=== PATIENT | male | born 1965 | race Hispanic/Latino ===

== ENCOUNTER 2018-11-04 11:40 | Inpatient (IN) | payer OTHER ==
[~2018-11-04] VITALS: Ht 172.7 cm; Wt 108.9 kg
[~2018-11-04 11:40] MED LIST: NORCO 10-325 T1 EACH
[2018-11-04] MEDS ORDERED: SODIUM CHLORIDE 0.9% 1000ML 1,000 ML IV STA (11:56)
[2018-11-04] MEDS ORDERED: HYDROCODONE/APAP 10MG-325MG TAB PO ONE (12:00)
[2018-11-04 12:53] LABS: BASOPHILS % 0.2 % (0.0-1.0); EOSINOPHILS % 0.2 % (0.0-6.0); HEMATOCRIT 21.4 % (38.2-49.6); LYMPHOCYTES % 7.8 % (18.0-39.1); MEAN CORPUSCULAR HEMOGLOBIN 29.2 pg (28-32); MEAN CORPUSCULAR HGB CONC 31.8 g/dL (31-35); MEAN CORPUSCULAR VOLUME 91.8 fL (81-99); MONOCYTES # (AUTO) 0.7 (0.2-0.8); MONOCYTES % 5.5 % (4.4-11.3); NEUTROPHILS # (AUTO) 10.3 (2.1-6.9); NEUTROPHILS % 85.1 % (38.7-80.0); PLATELET COUNT 83 x10e3/uL (140-360); RED BLOOD COUNT 2.33 x10e6/uL (4.3-5.7); RED CELL DISTRIBUTION WIDTH 19.5 % (11.7-14.4)
[2018-11-04 13:02] LABS: HEMOGLOBIN 6.8 g/dL (14.0-18.0)
[2018-11-04 13:07] LABS: ALANINE AMINOTRANSFERASE 23 IU/L (0-55); ALBUMIN 2.3 g/dL (3.5-5.0); ALBUMIN/GLOBULIN RATIO 0.4 (0.8-2.0); ALKALINE PHOSPHATASE 75 IU/L (40-150); ANION GAP 9.7 mmol/L (8-16); BLOOD UREA NITROGEN 13 mg/dL (7-26); BUN/CREATININE RATIO 16 (6-25); CARBON DIOXIDE 23 mmol/L (22-29); CHLORIDE 93 mmol/L (98-107); CREATININE, SERUM 0.83 mg/dL (0.72-1.25); EST GLOMERULAR FILTRATION RATE > 60 ML/MIN (60-); GLUCOSE 120 mg/dL (74-118); POTASSIUM 3.7 mmol/L (3.5-5.1); SODIUM 122 mmol/L (136-145)
--- NOTE | 2018-11-04 13:15 | Diagnostic Imaging Report ---
Exam: Left wrist radiographs-3 views History: Fall on outstretched hand, wrist pain. Comparison: None. Findings: No evidence of acute fracture, malalignment, or soft tissue abnormality. There are mild degenerative changes of the first carpometacarpal joint and radiocarpal joints. Impression: No acute radiographic abnormality. Signed by: Dr. Dustin Frazier MD on 11/04/2018 1:11 PM
--- NOTE | 2018-11-04 13:19 | Diagnostic Imaging Report ---
EXAMINATION: CHEST 2 VIEWS INDICATION: Status post fall. COMPARISON: None FINDINGS: TUBES and LINES: None. LUNGS: Lungs are well inflated. There is no evidence of pneumonia or pulmonary edema. Nodular opacities overlying the bilateral lower lung zones likely represent nipples. PLEURA: No pleural effusion or pneumothorax. HEART AND MEDIASTINUM: The cardiomediastinal silhouette is unremarkable. BONES AND SOFT TISSUES: No acute osseous abnormality. There are likely old fracture deformities of the right anterior second, third, and fourth ribs. UPPER ABDOMEN: No free air under the diaphragm. IMPRESSION: Likely old fracture deformities of the right anterior second through fourth ribs. No evidence of acute displaced fracture or pneumothorax. Signed by: Dr. Dustin Frazier MD on 11/04/2018 1:15 PM
[2018-11-04] MEDS ORDERED: HYDROMORPHONE 2MG/ML 2 MG/ML ML IV NR (14:30)
[2018-11-04] MEDS ORDERED: PANTOPRAZOLE 40 MG 10ML VIAL IV NR ×2 (14:32→15:48)
[2018-11-04] MEDS ORDERED: ONDANSETRON HCL INJ 2MG/ML 2ML 2 MG/ML VIAL IV NR (14:32)
[2018-11-04 14:44] LABS: BAND NEUTROPHILS % (MANUAL) 14 %; EOSINOPHILS % (MANUAL) 1 % (0-7); LYMPHOCYTES % (MANUAL) 5 % (19-48); MONOCYTES % (MANUAL) 4 % (3.4-9.0); NEUTROPHILS % (MANUAL) 76 % (40-74)
[2018-11-04 14:45] LABS: PLATELET ESTIMATE MODERATELY DECREASED; PLATELET MORPHOLOGY COMMENT FEW LARGE
[2018-11-04] MEDS ORDERED: SODIUM CHLORIDE 0.9% 1000ML 1,000 ML IV NR (14:45)
[2018-11-04 15:17] LABS: INR 2.21; PROTHROMBIN TIME 25.2 seconds (11.9-14.5)
[2018-11-04 15:18] LABS: PARTIAL THROMBOPLASTIN TIME 46.2 seconds (23.8-35.5)
[2018-11-04 15:26] LABS: CLARITY,URINE HAZY (CLEAR); COLOR,URINE AMBER (YELLOW); LEUKOCYTE ESTERASE ,URINE 1+ (NEGATIVE); NITRITE,URINE POSITIVE (NEGATIVE)
[2018-11-04 15:27] LABS: BILIRUBIN,URINE 3+ (NEGATIVE); KETONES,URINE NEGATIVE (NEGATIVE); PROTEIN,URINE DIPSTICK NEGATIVE (NEGATIVE); URINE UROBILINOGEN 8 mg/dL (0.2 - 1)
[2018-11-04 15:28] LABS: BACTERIA,URINE MANY /HPF
--- NOTE | 2018-11-04 16:12 | Diagnostic Imaging Report ---
EXAM: CT Abdomen and Pelvis WITH contrast INDICATION: Fever, ventral hernia, query cirrhosis. Status post fall. COMPARISON: None. TECHNIQUE: Abdomen and pelvis were scanned utilizing a multidetector helical scanner from the lung base to the pubic symphysis after administration of IV contrast. Coronal and sagittal reformations were obtained. Routine protocol was performed. Scan was performed when during portal venous phase. IV CONTRAST: 100 cc of Isovue-370. ORAL CONTRAST: None. COMPLICATIONS: None RADIATION DOSE: Total DLP: 755.9 mGy*cm Estimated effective dose: (DLP x 0.015 x size factor) mSv CTDIvol has been reviewed. It is below the limits set by the Radiation Protocol Committee (RPC). FINDINGS: LINES and TUBES: None. LOWER THORAX: Patchy dependent atelectasis. HEPATOBILIARY: There is a subtle cirrhotic morphology to the liver. No evidence of mass. GALLBLADDER: Cholelithiasis without CT evidence of cholecystitis. SPLEEN: Mild splenomegaly measuring up to 14.3 cm. Calcified splenic granuloma. PANCREAS: No focal masses or ductal dilatation. ADRENALS: No adrenal nodules KIDNEYS/URETERS: No evidence of bowel obstruction. Limited evaluation secondary to streak artifact, but the appendix is likely normal, as seen on series 2, image 55 There is scattered colonic diverticulosis without CT evidence of diverticulitis. Left upper pole renal hypodensity is too small to characterize, but likely represents a cyst. PELVIC ORGANS/BLADDER: Streak artifact from right pelvic hardware limits evaluation. The bladder is partially decompressed. LYMPH NODES: No lymphadenopathy. VESSELS: There are scattered atherosclerotic calcifications in the aorta and branch vessels. There is a separate origin of the common hepatic artery and splenic artery from the aorta. PERITONEUM / RETROPERITONEUM: No free air. Small volume ascites. BONES AND SOFT TISSUES: Postsurgical changes involving the anterior midline abdomen. There is a fat-containing ventral abdominal wall incisional hernia with a neck measuring up to 2 cm in maximal SI dimension and 1.5 cm in maximal transverse dimension. There is a fat and fluid containing left inguinal hernia. There is mild surrounding fat stranding. There is extensive right pelvic fixation hardware including plate and screw constructs involving the right iliac bone, ischium, and bilateral pubis. Two screws transfix the right proximal femur. CONCLUSION: Mild cirrhotic morphology to the liver with mild splenomegaly and small volume ascites. Fat-containing ventral abdominal wall incisional hernia with surrounding inflammatory changes and somewhat narrow neck. This can be correlated with clinical exam. Fat and fluid containing left inguinal hernia. Signed by: Dr. Dustin Frazier MD on 11/04/2018 4:09 PM
[2018-11-04] MEDS: CEFTRIAXONE SOD 1 GM/NS 50 ML 50 ML IV SCH (16:32)
[2018-11-04 16:35] LABS: EPITHELIAL CELLS,URINE MODERATE /LPF
[2018-11-04] MEDS ORDERED: SODIUM CHLORIDE FLUSH 10 ML SYR INJ PRN (18:15)
[2018-11-04] MEDS ORDERED: PANTOPRAZOLE INJ 80 MG in SODIUM CHLORIDE 0.9% 100 ML IV SCH (18:15)
--- OUTSIDE RECORDS SUMMARY | 2018-11-04 19:05 | XMS REPORT ---
Author Author [facility] Address Unknown Phone Unavailable Care Team Providers Care Keyboard Instrument Repairer Name Role Phone Wendy MICHAUD Unavailable Unavailable Problems This patient has no known problems. Allergies, Adverse Reactions, Alerts This patient has no known allergies or adverse reactions. Medications This patient has no known medications. Results Test Description Test Time Test Comments Text Results Atomic Results Result Comments CT ABDOMEN/PELVIS W 2018-11-04 15:49:00 [place] [address] Patient Name: NAKITA CHAPMAN MR #: [id number] : 1965 Age/Sex: 53/M Req #: [id number] [facility] Physician: Ordered by: LUISA MICHAUD MD Report #: [id number] Location: ER Room/Bed: Procedure: [id number] CT/CT ABDOMEN/PELVIS W Exam Date: 11/04/18 Exam Time: 1523 REPORT STATUS: Signed EXAM: CT Abdomen and Pelvis WITH contrast INDIC ATION: Fever, ventral hernia, query cirrhosis. Status post fall. COMPARISON: None. TECHNIQUE: Abdomen and pelvis were scanned utilizing a multidetector helical scanner from the lung base to the pubic symphysis after administration of IV contrast. Coronal and sagittal reformations were obtained. Routine protocol was performed. Scan was performed when during portal venous phase. IV CONTRAST: 100 cc of Isovue-370. ORAL CONTRAST: None. COMPLICATIONS: None RADIATION DOSE: Total DLP: 755.9 mGy*cm Estimated effective dose: (DLP x 0.015 x size factor) mSv CTDIvol has been reviewed. It is below the limits set by the Radiation Protocol Committee (RPC). FINDINGS: LINES and TUBES: None. LOWER THORAX: Patchy dependent atelectasis. HEPATOBILIARY: There is a subtle cirrhotic morphology to the liver. No evidence of mass. GALLBLADDER: Cholelithiasis without CT evidence of cholecystitis. SPLEEN: Mild splenomegaly measuring up to 14.3 cm. Calcified splenic granuloma. PANCREAS: No focal masses or ductal dilatation. ADRENALS: No adrenal nodules KIDNEYS/URETERS: No evidence of bowel obstruction. Limited evaluation secondary to streak artifact, but the appendix is likely normal, as seen on series 2, image 55 There is scattered colonic diverticulosis without CT evidence of diverticulitis. Left upper pole renal hypodensity is too small to characterize, but likely represents a cyst. PELVIC ORGANS/BLADDER: Streak artifact from right pelvic hardware limits evaluation. The bladder is partially decompressed. LYMPH NODES: No lymphadenopathy. VESSELS: There are scattered atherosclerotic calcifications in the aorta and branch vessels. There is a separate origin of the common hepatic artery and splenic artery from the aorta. PERITONEUM / RETROPERITONEUM: No free air. Small volume ascites. BONES AND SOFT TISSUES: Postsurgical changes involving the anterior midline abdomen. There is a fat-containing ventral abdominal wall incisional hernia with a neck measuring up to 2 cm in maximal SI dimension and 1.5 cm in maximal transverse dimension. There is a fat and fluid containing left inguinal hernia. There is mild surrounding fat stranding. There is extensive right pelvic fixation hardware including plate and screw constructs involving the right iliac bone, ischium, and bilateral pubis. Two screws transfix the right proximal femur. CONCLUSION: Mild cirrhotic morphology to the liver with mild splenomegaly and small volume ascites. Fat-containing ventral abdominal wall incisional hernia with surrounding inflammatory changes and somewhat narrow neck. This can be correlated with clinical exam. Fat and fluid containing left inguinal hernia. Signed by: Dr. Renan Frazier MD on 11/04/2018 4:09 PM Dictated By: RENAN FRAZIER MD [id number] Transcribed By: DORINDA on 11/04/18 1607 COPY TO: LUISA MICHAUD MD CHEST 2 VIEWS 2018-11-04 13:11:00 [facility] [address] [place] [address] Patient Name: NAKITA CHAPMAN MR #: [id number] : 1965 Age/Sex: 53/M Req #: [id number] Physician: Ordered by: LUISA MICHAUD MD Report #: [id number] Location: ER Room/Bed: Procedure: [id number] DX/CHEST 2 VIEWS Exam Date: 11/04/18 Exam Time: 1210 REPORT STATUS: Signed EXAMINATION: CHEST 2 VIEWS INDICATION: Status post f all. COMPARISON: None FINDINGS: TUBES and LINES: None. LUNGS: Lungs are well inflated. There is no evidence of pneumonia or pulmonary edema. Nodular opacities overlying the bilateral lower lung zones likely represent nipples. PLEURA: No pleural effusion or pneumothorax. HEART AND MEDIASTINUM: The cardiomediastinal silhouette is unremarkable. BONES AND SOFT TISSUES: No acute osseous abnormality. There are likely old fracture deformities of the right anterior second, third, and fourth ribs. UPPER ABDOMEN: No free air under the diaphragm. IMPRESSION: Likely old fracture deformities of the right anterior second through fourth ribs. No evidence of acute displaced fracture or pneumothorax. Signed by: Dr. Renan Frazier MD on 11/04/2018 1:15 PM Dictated By: RENAN FRAZIER MD 1311 Transcribed By: DORINDA on 11/04/18 1315 COPY TO: LUISA MICHAUD MD WRIST COMPLETE LEFT 2018-11-04 13:09:00 [place] [address] Patient Name: NAKITA CHAPMAN MR #: [id number] : 1965 Age/Sex: 53/M Req #: [id number] [facility] Physician: Ordered by: LUISA MICHAUD MD Report #: [id number] Location: Room/Bed: Procedure: [id number] DX/WRIST COMPLETE LEFT Exam Date: 11/04/18 Exam Time: 1210 REPORT STATUS: Signed Exam: Left wrist radiographs-3 views History: Fall on outstretched hand, wrist pain. Comparison: None. Findings: No evidence of acute fracture, malalignment, or soft tissue abnormality. There are mild degenerative changes of the first carpometacarpal joint and radiocarpal joints. Impression: No acute radiographic abnormality. Signed by: Dr. Renan Frazier MD on 11/04/2018 1:11 PM Dictated By: RENAN FRAZIER MD 10 Transcribed By: DORINDA on 11/04/181310 COPY TO: LUISA MICHAUD MD
--- NOTE | 2018-11-04 19:17 | NUR ---
verified with dr noble. to adminsiter 2 units of fresh frozen plasma, 2 units of prbcs
--- NOTE | 2018-11-04 19:17 | NUR ---
Zuhair pierce in [facility] - 11/04/18 at 2021 by FANI verified with dr noble, to administer 2 units of prbcs, 2 units of platelets
--- NOTE | 2018-11-04 19:27 | NUR ---
contacted speedy from lab, lab to only notify this nurse only for blood being ready
[2018-11-04] MEDS ORDERED: OCTREOTIDE ACETATE 0.05 MG/ML AMP IV NR (20:00)
[2018-11-04] MEDS ORDERED: PHYTONADIONE 10 MG/ML AMP SQ NR (20:15)
[2018-11-04 20:20] LABS: CREATINE KINASE MB 0.5 ng/mL (0-5.0)
[2018-11-04] MEDS: OCTREOTIDE ACETATE 500 MCG in SODIUM CHLORIDE 0.9% 250ML 249 ML IV SCH (20:59)
[2018-11-04] MEDS: PANTOPRAZOL 40MG/SOD CHL 0.9% 50 ML IV SCH (20:59)
--- NOTE | 2018-11-04 23:53 | NUR ---
SPOKE TO DR DEAN, PATIENT TO HAVE 2 UNITS TOTAL OF JUMBO PLASMA, 2 UNITS OF PRBCS, AND ADDED BENTYL 20MG PO Q 6 HOURS FOR PATIENTS PAIN
[2018-11-05] VITALS (8 sets, daily range): BP systolic 108–132; BP diastolic 68–99
[2018-11-05] MEDS ORDERED: DICYCLOMINE HCL 20 MG TAB PO PRN
--- NOTE | 2018-11-05 00:30 | NUR ---
RECEIVED PATIENT FROM [facility] FROM ER. PATIENT WAS TRANSFERRED ON A RENT/SPECIAL ORDER BED. PATIENT IS ALERT AND ORIENTED X4. FULL ASSESSMENT PERFORMED SEE INITIAL ASSESSMENT. HOWEVER, PATIENT IS IN PAIN AND PAIN LEVEL OF A 7 TO LEFT FOREARM THAT IS NOTED TO HAVE SEVERE SWELLING AND IS WARM TO TOUCH. PLACED ARM ON PILLOW TO ELEVATE AND PLACED TWO ICE PACKS ALSO. WILL SEE IF I CAN OBTAIN A ARM SLING. NO PRN PAIN MEDICATION IS ORDERED. IN REPORT ONLY A WRIST XRAY DONE ORIGIN OF PAIN IS LEFT LATERAL FOREARM. IF PAIN CONSISTS DESPITE NURSING INTERVENTIONS WILL CALL ATTENDING
[2018-11-05] MEDS ORDERED: SODIUM CHLORIDE 0.9% 250ML 250 ML ONE (02:18)
--- NOTE | 2018-11-05 03:01 | Consultation ---
DATE OF CONSULTATION: 11/04/2018 HISTORY OF PRESENT ILLNESS: This is a 53-year-old, who has a history of alcohol abuse as well as cirrhosis, presented to the hospital apparently because of GI bleed and the patient apparently also was found to have significant anemia with hemoglobin as low as 6.8, along with the coagulopathy. His PT is 25. He did have a CAT scan of the abdomen and pelvis on admission, which shows cirrhosis with splenomegaly and small volume ascites as well as fat containing ventral hernia and inguinal hernia. OTHER MEDICAL PROBLEMS: Otherwise significant history of alcohol abuse. ALLERGIES: NONE. SOCIAL HISTORY: Alcohol abuse. FAMILY HISTORY: Noncontributory. REVIEW OF SYSTEMS: Denies any chest pain at this point. Denies any shortness of breath. Denies any dysphagia or odynophagia. Denies any dysuria, hematuria, or any syncopal episode. PHYSICAL EXAMINATION: GENERAL: The patient is awake and alert, appears to be stable, and not in any acute distress at this point. VITAL SIGNS: Afebrile, currently with stable vital signs. HEAD, EYES, EARS, NOSE, AND THROAT: Normocephalic. Sclerae are anicteric. NECK: Supple. HEART: Regular. ABDOMEN: Soft. There is no rebound or mass. EXTREMITIES: Demonstrates no clubbing. LABORATORY VALUES: His WBC of 12.1, hemoglobin 6.8, hematocrit 21.4, and platelet count of 83. PT 25.2, INR 2.21, PTT 46.2, BUN 30, creatinine 0.83, total bilirubin of 6.5, AST of 66, ALT of 2.3. IMPRESSION: 1. Gastrointestinal bleed, rule out possibility of esophageal varices at this point. 2. Anemia and thrombocytopenia. 3. Coagulopathy. 4. Cirrhosis. 5. Alcohol abuse. RECOMMENDATIONS: GI bleed. Recommendation is to proceed with EGD tomorrow and correct coagulopathy. Start on the octreotide drip, follow labs and clinically. Sushil Garcia MD DHD/MODL /[id number] cc: Henrique Lyon MD
--- NOTE | 2018-11-05 04:18 | NUR ---
CALLED AND LEFT MSG ON DR Aria HOLBROOK TO PLEASE RETURN MY CALL CONCERNING THIS PATIENT AND HIS PAIN LEVEL OF A 10 TO THE LEFT FOREARM THAT EXTENDING TO WRIST THERE IS SEVERE SWELLING NOTED. AREA WARM TO TOUCH. Addendum: 11/05/18 at 0421 by Nuria Wakefield RN ALSO LEFT MSG THAT PATIENT ONLY HAD A WRIST XRAY NOT A FOREARM XRAY AND THIS IS THE AREA OF ORIGIN THEN IT RADIATES DOWN TO THE LEFT WRIST
[2018-11-05] MEDS: PANTOPRAZOL 40MG/SOD CHL 0.9% 50 ML IV SCH ×5 (05:22→19:36)
--- NOTE | 2018-11-05 05:30 | NUR ---
CALLED DR GRAF FOR THE SECOND TIME AND HE IMMEDIATELY RETURNED PHONE CALL. INFORMED HIM OF PATIENTs PAIN LEVEL AND ASSESSMENT OF PATIENTs ARM. NEW ORDERS RECEIVED. FOR XRAY OF LEFT FOREARM. NORCO 10/325MG PO Q4HR PRN. INFORMED HIM THAT THIS PATIENT NPO FOR ENDOSCOPY PROCEDURE THIS AM. DR GRAF STATED AGAIN TO GO AHEAD AND GIVE HIM THE PO NORCO THAT IT WAS FINE DESPITE AM PROCEDURE
[2018-11-05] MEDS: OCTREOTIDE ACETATE 500 MCG in SODIUM CHLORIDE 0.9% 250ML 249 ML IV SCH ×2 (06:00→13:57)
--- NOTE | 2018-11-05 07:00 | NUR ---
SEE CHART FOR ALL VITAL SIGNS AFTER 0100 DURING MY SHIFT AND AFTER ARRIVAL TO [facility]
--- NOTE | 2018-11-05 07:01 | Diagnostic Imaging Report ---
FOREARM LEFT 2 VIEW - 2 views HISTORY: Pain. Left arm swelling after fall 3 days ago. COMPARISON: None available. FINDINGS: Bones: No acute displaced fracture. Osseous alignment is within normal limits. Joints: The joint spaces are well-maintained. Soft tissues: The soft tissues appear unremarkable. IV in place. IMPRESSION: No acute radiographic abnormality. Signed by: Dr. Isac Craig M.D. on 11/05/2018 6:58 AM
[2018-11-05] MEDS: HYDROCODONE/APAP 10MG-325MG TAB PO PRN ×3 (07:10→22:26)
[2018-11-05] MEDS ORDERED: THIAMINE HCL INJ 100 MG/ML 2ML VIAL IV ONE (09:00)
[2018-11-05] MEDS ORDERED: THIAMINE HCL INJ 100 MG in SODIUM CHLORIDE 0.9% 50ML 50 ML IV ONE (09:00)
[2018-11-05] MEDS ORDERED: CHLORDIAZEPOXIDE HCL 10 MG CAP PO PRN (09:00)
[2018-11-05] MEDS ORDERED: ONDANSETRON HCL INJ 2MG/ML 2ML 2 MG/ML VIAL IV PRN (09:00)
[2018-11-05] MEDS ORDERED: FUROSEMIDE INJ 10 MG/ML 4 ML VIAL IV ONE (09:00)
[2018-11-05] MEDS ORDERED: PHYTONADIONE 1 MG/0.5 ML AMP SQ ONE (09:00)
[2018-11-05] MEDS ORDERED: PHYTONADIONE 10 MG/ML AMP SC ONE (09:00)
--- NOTE | 2018-11-05 10:04 | NUR ---
pt stable, completed blood transfusion. pt to leave for egd shortly. holding meds until post op.
[2018-11-05 10:14] LABS: BASOPHILS % 0.4 % (0.0-1.0); EOSINOPHILS % 0.5 % (0.0-6.0); HEMATOCRIT 23.4 % (38.2-49.6); LYMPHOCYTES # (AUTO) 1.1 (1.0-3.2); LYMPHOCYTES % 13.1 % (18.0-39.1); MEAN CORPUSCULAR HEMOGLOBIN 29.6 pg (28-32); MEAN CORPUSCULAR HGB CONC 32.5 g/dL (31-35); MEAN CORPUSCULAR VOLUME 91.1 fL (81-99); MONOCYTES % 12.4 % (4.4-11.3); NEUTROPHILS # (AUTO) 6.1 (2.1-6.9); NEUTROPHILS % 72.6 % (38.7-80.0); PLATELET COUNT 77 x10e3/uL (140-360); RED BLOOD COUNT 2.57 x10e6/uL (4.3-5.7); RED CELL DISTRIBUTION WIDTH 18.6 % (11.7-14.4)
[2018-11-05 10:20] LABS: INR 1.87; PROTHROMBIN TIME 22.2 seconds (11.9-14.5)
[2018-11-05 10:24] LABS: HEMOGLOBIN 7.6 g/dL (14.0-18.0)
--- NOTE | 2018-11-05 10:27 | NUR ---
IMM SIGNED AND ON CHART COPY LEFT WITH PATIENT GAVE CARD FOR QUESTIONS AND OR CONCERNS.
[2018-11-05 10:35] LABS: ALANINE AMINOTRANSFERASE 21 IU/L (0-55); ALBUMIN 2.2 g/dL (3.5-5.0); ALBUMIN/GLOBULIN RATIO 0.4 (0.8-2.0); ALKALINE PHOSPHATASE 66 IU/L (40-150); ANION GAP 8.8 mmol/L (8-16); BLOOD UREA NITROGEN 12 mg/dL (7-26); BUN/CREATININE RATIO 17 (6-25); CALCIUM 7.8 mg/dL (8.4-10.2); CARBON DIOXIDE 23 mmol/L (22-29); CHLORIDE 100 mmol/L (98-107); CREATININE, SERUM 0.72 mg/dL (0.72-1.25); EST GLOMERULAR FILTRATION RATE > 60 ML/MIN (60-); GLUCOSE 100 mg/dL (74-118); POTASSIUM 3.8 mmol/L (3.5-5.1); SODIUM 128 mmol/L (136-145)
[2018-11-05 10:42] LABS: CREATINE KINASE MB 1.1 ng/mL (0-5.0)
--- NOTE | 2018-11-05 11:24 | NUR ---
pt off unit for procedure
[2018-11-05 12:11] LABS: PLATELET ESTIMATE MODERATELY DECREASED; PLATELET MORPHOLOGY COMMENT NORMAL
[2018-11-05 12:12] LABS: ANISOCYTOSIS SLIGHT; HYPOCHROMASIA SLIGHT; TARGET CELLS FEW
[2018-11-05 12:13] LABS: RBC MORPHOLOGY COMMENT ABNORMAL
[2018-11-05] MEDS: FOLIC ACID 1 MG TAB PO SCH (13:46)
[2018-11-05] MEDS: CYANOCOBALAMIN INJ 1,000 MCG/ML VIAL IM SCH (13:46)
[2018-11-05] MEDS: THIAMINE HCL 100 MG TAB PO SCH (13:48)
[2018-11-05] MEDS ORDERED: FUROSEMIDE INJ 10 MG/ML 4 ML VIAL ONE (13:56)
--- NOTE | 2018-11-05 14:11 | NUR ---
SPOKE WITH PT ABOUT RESOURCES FOR COMMUNITY FOR ETOH AND LEGAL SERVICES, GAVE CARD TO REACH OUT IF HE HAS ANY MORE QUESTIONS
--- NOTE | 2018-11-05 14:50 | History and Physical ---
PRIMARY CARE PHYSICIAN: Pinky Emmanuel MD CHIEF COMPLAINT: Status post fall, upper GI bleed, severe anemia, alcoholism. HISTORY: This 53-year-old alcoholic came in status post fall, tried to break his fall using his left upper extremity, came in with wrist and arm pain, but found to have the patient also really significant hemoglobin and hematocrit of 6.8 and 21.4. The patient stated that his stool had been black for the past week or so or even more, but the patient did not notice. He is an alcoholic. The patient is otherwise stable. The hemoglobin and hematocrit were 6.8 and 21.4 respectively. The patient had abdominal CT scan, shown that he has mildly cirrhotic morphology of the liver, abdominal wall incisional hernia. His x-ray of the upper extremity left forearm showed no acute radiographic abnormality in the forearm or the wrist. The patient is otherwise stable at this time. PAST MEDICAL HISTORY: Alcoholism and osteoarthritis. PAST SURGICAL HISTORY: Hernia repair. SOCIAL HISTORY: The patient is a heavy drinker, alcoholic. The last drink was a few days ago per the patient. ALLERGIES: NO KNOWN ALLERGIES. HOME MEDICATION: [place]. PHYSICAL EXAMINATION: VITAL SIGNS: Temperature 98, blood pressure 132/68, pulse rate 98, respirations 20. GENERAL: The patient is in no acute distress. He is awake, left arm and wrist pain. HEENT: Normocephalic, atraumatic. Anicteric. NECK: Supple grossly. PULMONARY: Diminished breath sounds. CARDIOVASCULAR: Regular rate and rhythm. ABDOMEN: Abdominal wall hernia reducible. No acute problem. EXTREMITIES: No cyanosis or edema. NEUROLOGIC: No focal deficit. LABORATORY DATA: Sodium is 122, potassium 3.7, chloride 93, bicarb 23, BUN 13, creatinine 0.8, glucose 120. WBC 12, hemoglobin 6.8, hematocrit 21.4, and platelets is 83. INR is 2.22. IMPRESSION: 1. Alcoholism. 2. Liver cirrhosis with possible esophageal varices with slow bleed with acute on chronic anemia. 3. Pancytopenia most likely secondary to his liver cirrhosis with low platelets. 4. Coagulopathy from liver cirrhosis. PLAN: Vitamin K, FFP, blood transfusion. EGD. Librium as needed. Check ammonia level. Repeat lab work. The patient is admitted. We will monitor for any withdrawal. Thiamine, folic acid, and B12. MD DON Werner /[id number]
--- NOTE | 2018-11-05 14:53 | NUR ---
WOUND CARE CONSULTATION- INITIAL EVALUATION Pt admitted to ER from Home for Upper GI Bleed, Cirrhosis with Coagulopathy. S/P fall at home 3 days ago. ETOH+, Anemia, Inguinal Hernia. EGD Performed today. + Hiatial Hernia Acosta Score 20 Conservative PUP Active Visco Mattress in Place Ambulatory. Limited ROM to Left Wrist ( S/P Fall ) X-rays WNL - Left Arm Swelling + , No Open Skin WBC12.14 HGB6.8 HCT21.4 NEUT%85.1 NNM452 ALB2.3 IMPRESSION: NO RASH NO PRESSURE ULCERS NO WOUNDS NOTED ON EVALUATION RECOMMENDATION: Continue Current Treatment Plan. Routine Hygiene. Thank you for Consulting with Wound Care. Addendum: 11/05/18 at 1457 by Rafat Reardon RN Amended: Links added.
[2018-11-05] MEDS ORDERED: FENTANYL CITRATE/PF 100MCG/2 ML INJ ONE (14:54)
[2018-11-05] MEDS ORDERED: MIDAZOLAM HCL 2 MG/2 ML VIAL ONE (14:54)
[2018-11-05] MEDS: CEFTRIAXONE SOD 1 GM/NS 50 ML 50 ML IV SCH (15:16)
[2018-11-05] MEDS ORDERED: LIDOCAINE HCL 2% LOCAL INJ 5 ML SDV VIAL INJ ONE (18:38)
[2018-11-05] MEDS ORDERED: PROPOFOL IV EMULSION 10 MG/ML 20 ML VIAL ONE (18:38)
[2018-11-05 18:53] LABS: HEMATOCRIT 23.8 % (38.2-49.6); HEMOGLOBIN 7.7 g/dL (14.0-18.0)
--- NOTE | 2018-11-05 19:00 | NUR ---
Report received Form JENNA Zee. Patient received resting comfortably on his bed. Family on the bedside. Patient verbally instructed call for help as needed. Bed in lower position,locked. Call hull within reach. Will continue to monitor.
[2018-11-05] MEDS ORDERED: ACETAMINOPHEN 325 MG TAB PO PRN (19:15)
[2018-11-05] MEDS: BENZONATATE 100 MG CAP PO PRN (19:36)
[2018-11-06] VITALS (8 sets, daily range): BP systolic 103–129; BP diastolic 51–98
[2018-11-06] MEDS: OCTREOTIDE ACETATE 500 MCG in SODIUM CHLORIDE 0.9% 250ML 249 ML IV SCH ×2 (00:08→11:28)
[2018-11-06] MEDS: PANTOPRAZOL 40MG/SOD CHL 0.9% 50 ML IV SCH ×4 (00:28→16:00)
[2018-11-06] MEDS: HYDROCODONE/APAP 10MG-325MG TAB PO PRN ×3 (02:55→21:16)
--- NOTE | 2018-11-06 02:59 | NUR ---
Started new IV on right wrist 20G at this time.
--- NOTE | 2018-11-06 05:15 | NUR ---
Patient taking shower at this time. Will continue to monitor.
[2018-11-06 06:32] LABS: BASOPHILS # (AUTO) 0.1 (0.0-0.1); BASOPHILS % 0.6 % (0.0-1.0); EOSINOPHILS # (AUTO) 0.1 (0.0-0.4); EOSINOPHILS % 1.4 % (0.0-6.0); HEMATOCRIT 26.3 % (38.2-49.6); HEMOGLOBIN 8.6 g/dL (14.0-18.0); LYMPHOCYTES # (AUTO) 1.3 (1.0-3.2); LYMPHOCYTES % 16.2 % (18.0-39.1); MEAN CORPUSCULAR HEMOGLOBIN 29.9 pg (28-32); MEAN CORPUSCULAR HGB CONC 32.7 g/dL (31-35); MEAN CORPUSCULAR VOLUME 91.3 fL (81-99); MONOCYTES % 12.3 % (4.4-11.3); NEUTROPHILS # (AUTO) 5.4 (2.1-6.9); NEUTROPHILS % 66.8 % (38.7-80.0); PLATELET COUNT 102 x10e3/uL (140-360); RED BLOOD COUNT 2.88 x10e6/uL (4.3-5.7)
[2018-11-06 06:50] LABS: ALANINE AMINOTRANSFERASE 20 IU/L (0-55); ALBUMIN 2.2 g/dL (3.5-5.0); ALBUMIN/GLOBULIN RATIO 0.4 (0.8-2.0); ALKALINE PHOSPHATASE 72 IU/L (40-150); ANION GAP 8.1 mmol/L (8-16); BLOOD UREA NITROGEN 13 mg/dL (7-26); BUN/CREATININE RATIO 17 (6-25); CALCIUM 7.9 mg/dL (8.4-10.2); CARBON DIOXIDE 24 mmol/L (22-29); CHLORIDE 98 mmol/L (98-107); CREATININE, SERUM 0.78 mg/dL (0.72-1.25); EST GLOMERULAR FILTRATION RATE > 60 ML/MIN (60-); GLUCOSE 111 mg/dL (74-118); POTASSIUM 3.1 mmol/L (3.5-5.1); SODIUM 127 mmol/L (136-145)
[2018-11-06] MEDS ORDERED: POTASSIUM CHLORIDE 20 MEQ TAB CR PO NR (07:15)
[2018-11-06] MEDS ORDERED: TRAMADOL HCL 50 MG TAB PO PRN (08:30)
[2018-11-06] MEDS: BENZONATATE 100 MG CAP PO PRN (08:45)
[2018-11-06] MEDS: CYANOCOBALAMIN INJ 1,000 MCG/ML VIAL IM SCH (08:45)
[2018-11-06] MEDS: FOLIC ACID 1 MG TAB PO SCH (08:45)
[2018-11-06] MEDS: FUROSEMIDE INJ 10 MG/ML 4 ML VIAL IV SCH ×2 (08:45→12:15)
[2018-11-06] MEDS: THIAMINE HCL 100 MG TAB PO SCH (08:46)
[2018-11-06] MEDS ORDERED: FUROSEMIDE INJ 10 MG/ML 4 ML VIAL ONE (08:47)
[2018-11-06 08:59] LABS: EOSINOPHILS % (MANUAL) 3 % (0-7); LYMPHOCYTES % (MANUAL) 22 % (19-48); METAMYELOCYTES % (MANUAL) 1 % (0-0); MONOCYTES % (MANUAL) 6 % (3.4-9.0); NEUTROPHILS % (MANUAL) 61 % (40-74)
[2018-11-06] MEDS ORDERED: PHYTONADIONE 10 MG/ML AMP SQ NR (09:00)
[2018-11-06 09:07] LABS: ANISOCYTOSIS SLIGHT; HYPOCHROMASIA SLIGHT
[2018-11-06 09:08] LABS: PLATELET ESTIMATE SLIGHTLY DECREASED; PLATELET MORPHOLOGY COMMENT NORMAL; RBC MORPHOLOGY COMMENT ABNORMAL
[2018-11-06] MEDS ORDERED: GUAIFENESIN/CODEINE 10 ML CUP PO PRN (09:15)
[2018-11-06] MEDS: POTASSIUM CHLORIDE 10MEQ EA PO SCH ×2 (10:04→16:47)
[2018-11-06] MEDS ORDERED: POTASSIUM CHLORIDE 20 MEQ TAB CR PO ONE (10:05)
[2018-11-06] MEDS: SPIRONOLACTONE 25 MG TAB PO SCH (12:15)
[2018-11-06] MEDS: CEFTRIAXONE SOD 1 GM/NS 50 ML 50 ML IV SCH (16:46)
--- NOTE | 2018-11-06 19:34 | NUR ---
notified about blood culture result at this time. NNO.
[2018-11-06] MEDS ORDERED: ONDANSETRON HCL 4 MG ORAL DISINTEGRATING TAB PO PRN (20:30)
[2018-11-06] MEDS: PROPRANOLOL HCL 10 MG TAB PO SCH (21:16)
[2018-11-07 04:55] VITALS: BP 128/85
[2018-11-07 05:16] LABS: BASOPHILS # (AUTO) 0.1 (0.0-0.1); BASOPHILS % 0.7 % (0.0-1.0); EOSINOPHILS # (AUTO) 0.1 (0.0-0.4); EOSINOPHILS % 1.7 % (0.0-6.0); HEMATOCRIT 26.3 % (38.2-49.6); HEMOGLOBIN 8.4 g/dL (14.0-18.0); LYMPHOCYTES # (AUTO) 1.5 (1.0-3.2); LYMPHOCYTES % 17.6 % (18.0-39.1); MEAN CORPUSCULAR HEMOGLOBIN 29.3 pg (28-32); MEAN CORPUSCULAR HGB CONC 31.9 g/dL (31-35); MEAN CORPUSCULAR VOLUME 91.6 fL (81-99); MONOCYTES # (AUTO) 1.2 (0.2-0.8); MONOCYTES % 13.8 % (4.4-11.3); NEUTROPHILS # (AUTO) 5.3 (2.1-6.9); NEUTROPHILS % 62.3 % (38.7-80.0); PLATELET COUNT 113 x10e3/uL (140-360); RED BLOOD COUNT 2.87 x10e6/uL (4.3-5.7); RED CELL DISTRIBUTION WIDTH 18.6 % (11.7-14.4)
[2018-11-07 05:39] LABS: ANION GAP 8.4 mmol/L (8-16); BLOOD UREA NITROGEN 9 mg/dL (7-26); BUN/CREATININE RATIO 13 (6-25); CALCIUM 7.7 mg/dL (8.4-10.2); CARBON DIOXIDE 28 mmol/L (22-29); CHLORIDE 96 mmol/L (98-107); CREATININE, SERUM 0.71 mg/dL (0.72-1.25); EST GLOMERULAR FILTRATION RATE > 60 ML/MIN (60-); GLUCOSE 106 mg/dL (74-118); POTASSIUM 3.4 mmol/L (3.5-5.1); SODIUM 129 mmol/L (136-145)
[2018-11-07] MEDS: PROPRANOLOL HCL 10 MG TAB PO SCH (05:44)
--- NOTE | 2018-11-07 07:02 | NUR ---
Report given to JENNA English,walking round done.
[2018-11-07 07:36] VITALS: BP 105/66
[2018-11-07] MEDS ORDERED: PANTOPRAZOLE SOD 40 MG TABEC PO SCH (09:00)
[2018-11-07] MEDS: FUROSEMIDE INJ 10 MG/ML 4 ML VIAL IV SCH (09:05)
[2018-11-07] MEDS: CYANOCOBALAMIN INJ 1,000 MCG/ML VIAL IM SCH (09:06)
[2018-11-07] MEDS: THIAMINE HCL 100 MG TAB PO SCH (09:06)
[2018-11-07] MEDS: FOLIC ACID 1 MG TAB PO SCH (09:06)
[2018-11-07] MEDS: POTASSIUM CHLORIDE 10MEQ EA PO SCH (09:10)
[2018-11-07] MEDS: SPIRONOLACTONE 25 MG TAB PO SCH (09:10)
--- NOTE | 2018-11-07 10:18 | NUR ---
Patient discharged home. Verbalized understanding of d/c instructions.
[2018-11-07 12:24] LABS: BAND NEUTROPHILS % (MANUAL) 6 %; LYMPHOCYTES % (MANUAL) 18 % (19-48); METAMYELOCYTES % (MANUAL) 2 % (0-0); MONOCYTES % (MANUAL) 13 % (3.4-9.0); MYELOCYTES % (MANUAL) 2 % (0-0); NEUTROPHILS % (MANUAL) 58 % (40-74)
[2018-11-07 12:31] LABS: PLATELET ESTIMATE SLIGHTLY DECREASED; PLATELET MORPHOLOGY COMMENT FEW GIANT; RBC MORPHOLOGY COMMENT NORMAL
[2018-11-07 12:32] LABS: ANISOCYTOSIS SLIGHT; HYPOCHROMASIA MODERATE
--- NOTE | 2018-11-08 04:31 | Discharge Summary ---
PRIMARY CARE PHYSICIAN: Dr. Pinky Emmanuel. TUCKPOINTER: Dr. Sushil Garcia. FINAL DIAGNOSES: 1. Newly diagnosed liver cirrhosis associated with coagulopathy, corrected. 2. Upper gastrointestinal bleed secondary to esophageal varices, status post EGD with banding by Dr. Sushil Garcia. 3. Electrolyte disorder, corrected. 4. Urinary tract infection associated with Escherichia coli. 5. Acute blood loss anemia, status post blood transfusion. 6. Abdominal liver cirrhosis associated with ascites. SUMMARY: The patient is a 53-year-old male, presented with hematemesis. The patient has abdominal distention, fluid retention and was found down. CT scan done on the patient. The imaging of the abdominal and pelvis CT scan shown that the patient has cirrhotic morphology of the liver. Mild splenomegaly and small volume ascites. He also had a fat-containing ventral abdominal hernia incision, hernia with surrounding inflammatory changes, somewhat of a narrow neck. The patient will need further followup with respect to his abdominal hernia. The patient apparently is an alcoholic, he was drinking, fell, and experienced left upper extremity strain and bruises on the left chest area. That is the reason why the patient came in and all these finding are on workup in the Emergency Room. The patient's laboratory, now wbc is 8.4, hemoglobin 8.4, hematocrit 26.3, and platelet is 113 up from 83. Chemistry panel, sodium is 129, potassium 3.4, chloride 96, bicarb 28, BUN 9, creatinine 0.7, glucose is 106. The patient is otherwise stable. The urinalysis showed leukocyte esterase, 1+ glucose with bacteria E coli as mentioned. Influenza A and B negative. Coagulation, INR is 2.2 and now down to 1.87. The patient has stopped drinking alcohol. At this time, the patient is stable. He will go home today with the following medications: 1. Keflex mg t.i.d. for seven days. 2. Flagyl mg t.i.d. seven days. 3. Zofran ODT p.r.n. 4. Tramadol 50 mg q.6 p.r.n. for pain. 5. Tessalon Perles 100 mg q.4 p.r.n. for cough. 6. Folic acid 1 mg daily. 7. Thiamine 100 mg daily. 8. Hemocyte Plus one daily. 9. Omeprazole 40 mg daily. 10. Propranolol 10 mg b.i.d. 11. Aldactone 50 mg b.i.d. 12. Lasix 40 mg q.a.m. 13. Librium 10 mg every 6 hours as needed for alcohol withdrawal or craving. All instructions were given to the patient and his family. His mother by bedside. The patient will need to follow up with Dr. Sushil Garcia within 1 or 2 weeks for repeat EGD, possible further banding. Advised the patient to follow up with Dr. Pinky Emmanuel, his family physician, for continue to manage his problems overall. The patient is stable, discharged home today. MD LINCOLN Werner/NATALIIAL /[id number]
== END 2018-11-07 10:17 | disposition home or self-care (01) | DRG 433 ==
LOC: ER 11:40 → ERHOLD 18:14 → IMCU 11-05 00:30
PROVIDERS: ADMIT Internal Medicine; ATTEND Internal Medicine
DX: K74.60 Unspecified cirrhosis of liver (principal); D68.4 Acquired coagulation factor deficiency; N39.0 Urinary tract infection, site not specified; D62 Acute posthemorrhagic anemia; R18.8 Other ascites; E87.8 Other disorders of electrolyte and fluid balance, not elsewhere classified; B96.20 Unspecified Escherichia coli [E. coli] as the cause of diseases classified elsewhere
CPT/HCPCS: 36415; 43239; 71046; 74177; 80048; 80053; 81001; 82140; 82550; 82553; 84484; 85014; 85018; 85025; 85610; 85730; 86850; 86900; 86920; 87040; 87071; 87086; 87186; 87205; 87400; 93005; 99284; J0696; J1940; J2001; J2250; J2353; J2354; J2405; J3411; J3420; J3430; J7030; J7050; P9016; P9017

== ENCOUNTER 2018-12-03 13:51 | Inpatient (IN) | payer OTHER ==
[~2018-12-03] VITALS: Ht 154.4 cm; Wt 90.3 kg
--- OUTSIDE RECORDS SUMMARY | 2018-12-03 13:54 | XMS REPORT | Continuity of Care Document ---
Author Author [facility] Interface Address Unknown Phone Unavailable Problems Problem Status Onset Date Classification Date Reported Comments Source Contusion of right hip Active Problem 11/07/2018 [facility] Medications Medication Details Route Status Patient Instructions Ordering Provider Order Date Source Hydrocodone Bit/Acetaminophen ([place] 10-325 Tablet) 1 Each Tablet, Active 11/07/2018 [facility] Allergies, Adverse Reactions, Alerts Substance Category Reaction Severity Reaction type Status Date Reported Comments Source Immunizations Immunization Date Given Site Status Last Updated Comments Source Results Order Name Results Value Reference Range Date Interpretation Comments Source Blood leukocytes automated count (number/volume) 8.46 4.8 - 10.8 11/07/2018 [facility] Blood erythrocytes automated count (number/volume) 2.87 4.3 - 5.7 11/07/2018 [facility] Blood hemoglobin measurement (moles/volume) 8.4 14.0 - 18.0 11/07/2018 [facility] Automated blood hematocrit (volume fraction) 26.3 38.2 - 49.6 11/07/2018 [facility] Automated erythrocyte mean corpuscular volume 91.6 81 - 99 11/07/2018 [facility] Automated erythrocyte mean corpuscular hemoglobin (mass per erythrocyte) 29.3 28 - 32 11/07/2018 [facility] Automated erythrocyte mean corpuscular hemoglobin concentration measurement (mass/volume) 31.9 31 - 35 11/07/2018 [facility] RDW BldCo-Rto 18.6 11.7 - 14.4 11/07/2018 [facility] Automated blood platelet count (count/volume) 113 140 - 360 11/07/2018 [facility] Automated blood segmented neutrophil count as percentage of total leukocytes 62.3 38.7 - 80.0 11/07/2018 [facility] Automated blood lymphocyte count as percentage ot total leukocytes 17.6 18.0 - 39.1 11/07/2018 [facility] Automated blood monocyte count as percentage of total leukocytes 13.8 4.4 - 11.3 11/07/2018 [facility] Automated blood eosinophil count as percentage of total leukocytes 1.7 0.0 - 6.0 11/07/2018 [facility] Automated blood basophil count as percentage of total leukocytes 0.7 0.0 - 1.0 11/07/2018 [facility] IM GRANULOCYTES % 3.9 0.0 - 1.0 11/07/2018 [facility] Automated blood neutrophil count 5.3 2.1 - 6.9 11/07/2018 [facility] Blood lymphocytes count (number/volume) 1.5 1.0 - 3.2 11/07/2018 [facility] Blood monocytes automated count (number/volume) 1.2 0.2 - 0.8 11/07/2018 [facility] Automated blood eosinophil count 0.1 0.0 - 0.4 11/07/2018 [facility] Automated blood basophil count (count/volume) 0.1 0.0 - 0.1 11/07/2018 [facility] Absolute Immature Granulocyte (auto 0.33 0 - 0.1 11/07/2018 [facility] Serum or plasma sodium measurement (moles/volume) 129 136 - 145 11/07/2018 [facility] Serum or plasma potassium measurement (moles/volume) 3.4 3.5 - 5.1 11/07/2018 [facility] Serum or plasma chloride measurement (moles/volume) 96 98 - 107 11/07/2018 [facility] Serum or plasma carbon dioxide, total measurement (moles/volume) 28 22 - 29 11/07/2018 [facility] Serum or plasma anion gap 8.4 8 - 16 11/07/2018 [facility] Serum or plasma urea nitrogen measurement (mass/volume) 9 7 - 26 11/07/2018 [facility] Serum or plasma creatinine measurement (mass/volume) 0.71 0.72 - 1.25 11/07/2018 [facility] Serum or plasma urea nitrogen/creatinine mass ratio 13 6 - 25 11/07/2018 [facility] Estimated glomerular filtration rate (GFR) determination > 60 60 11/07/2018 [facility] Glucose measurement 106 74 - 118 11/07/2018 [facility] Serum or plasma calcium measurement (mass/volume) 7.7 8.4 - 10.2 11/07/2018 [facility] Differential Total Cells Counted 100 11/06/2018 [facility] Manual blood neutrophils/100 leukocytes 61 40 - 74 11/06/2018 [facility] Manual blood lymphocytes/100 leukocytes 22 19 - 48 11/06/2018 [facility] Manual blood monocytes/100 leukocytes 6 3.4 - 9.0 11/06/2018 [facility] Manual blood eosinophil count as percentage of total leukocytes 3 0 - 7 11/06/2018 [facility] Manual blood metamyelocytes/100 leukocytes 1 0 - 0 11/06/2018 [facility] Blood lymphocytes variant count (number/volume) 7 11/06/2018 [facility] Blood platelets count by estimate (number/volume) SLIGHTLY DECREASED 11/06/2018 [facility] Platelet morphology NORMAL 11/06/2018 [facility] Blood hypochromia detection by light microscopy SLIGHT 11/06/2018 [facility] Blood anisocytosis detection by light microscopy SLIGHT 11/06/2018 [facility] RBC morphology ABNORMAL 11/06/2018 [facility] Serum or plasma total bilirubin measurement (mass/volume) 8.6 0.2 - 1.2 11/06/2018 [facility] Aspartate Amino Transf (AST/SGOT) 49 5 - 34 11/06/2018 [facility] Serum or plasma alanine aminotransferase measurement (enzymatic activity/volume) 20 0 - 55 11/06/2018 [facility] Serum or plasma protein measurement (mass/volume) 7.7 6.5 - 8.1 11/06/2018 [facility] Serum or plasma albumin measurement (mass/volume) 2.2 3.5 - 5.0 11/06/2018 [facility] Plasma globulin measurement (mass/volume) 5.5 2.3 - 3.5 11/06/2018 [facility] Serum or plasma albumin/globulin mass ratio 0.4 0.8 - 2.0 11/06/2018 [facility] Serum or plasma alkaline phosphatase measurement (enzymatic activity/volume) 72 40 - 150 11/06/2018 [facility] Blood target cells detection by light microscopy FEW 11/05/2018 [facility] Prothrombin time (PT) in platelet poor plasma by coagulation assay 22.2 11.9 - 14.5 11/05/2018 [facility] INR in Platelet poor plasma by Coagulation assay 1.87 11/05/2018 [facility] Ammonia Ser-nc 101 31 - 123 11/05/2018 [facility] Serum or plasma creatine kinase measurement (enzymatic activity/volume) 82 30 - 200 11/05/2018 [facility] Serum or plasma creatine kinase MB measurement (mass/volume) 1.10 0 - 5.0 11/05/2018 [facility] Troponin I measurement by highly sensitive enzyme immunoassay 0.056 0 - 0.300 11/05/2018 [facility] Activated partial thromboplastin time (aPTT) in platelet poor plasma bycoagulation assay 46.2 23.8 - 35.5 11/04/2018 [facility] Urine color determination ANAT YELLOW 11/04/2018 [facility] Urine clarity HAZY CLEAR 11/04/2018 [facility] Specific gravity of Urine by Test strip 1.015 1.010 - 1.025 11/04/2018 [facility] Urine pH measurement by automated test strip 6 5 - 7 11/04/2018 [facility] Urine leukocyte esterase detection by dipstick 1+ NEGATIVE 11/04/2018 [facility] Urine nitrite detection POSITIVE NEGATIVE 11/04/2018 [facility] Urine protein measurement by test strip (mass/volume) NEGATIVE NEGATIVE 11/04/2018 [facility] Urine glucose detection NEGATIVE NEGATIVE 11/04/2018 [facility] Urine ketones detection by automated test strip NEGATIVE NEGATIVE 11/04/2018 [facility] Urine urobilinogen measurement by test strip (mass/volume) 8 0.2 - 1 11/04/2018 [facility] Urine total bilirubin measurement (mass/volume) 3+ NEGATIVE 11/04/2018 [facility] Urine erythrocytes detection 3+ NEGATIVE 11/04/2018 [facility] Automated urine sediment leukocyte count by microscopy (number/high power field) 6-10 0 - 5 11/04/2018 [facility] Erythrocytes detection in urine sediment by light microscopy 11-20 0 - 5 11/04/2018 [facility] Bacteria detection in urine sediment by light microscopy MANY NONE 11/04/2018 [facility] Epithelial cells detection in urine sediment by light microscopy MODERATE NONE 11/04/2018 [facility] Manual blood band neutrophils form/100 leukocytes 14 11/04/2018 [facility] Influenza virus A and B antigen identification by immunofluorescence NEGATIVE NEGATIVE 11/04/2018 [facility] Blood culture Growth detected. Culture workup ordered. 11/04/2018 [facility] Bacterial urine culture Urine Culture [facility] Vital Signs Vital Sign Value Date Comments Source Encounters Location Location Details Encounter Type Encounter Number Reason For Visit Attending Provider ADM Date DC Date Status Source Discharged Inpatient [id number] REBECCA GRAF MD 11/04/2018 11/07/2018 [facility] Procedures Procedure Code Date Perfomer Comments Source EGD with biopsy [id number] 11/05/2018 [facility] X-ray of chest, two views [id number] 11/04/2018 [facility] Computed tomography of abdomen and pelvis with contrast [id number] 11/04/2018 [facility]
--- OUTSIDE RECORDS SUMMARY | 2018-12-03 13:55 | XMS REPORT | Summary of Care ---
Author Author JUAN A HERNANDEZ M.D. Organization Unknown Address Unknown Phone Unavailable Care Team Providers Care Stud Master/Mistress Name Role Phone JUAN A HERNANDEZ M.D. Unavailable Unavailable [facility] Unavailable Unavailable LEANDRO HANNA MD Unavailable Unavailable JACQUES Rowe, LEANDRO Ludwig Unavailable Juan A Hernandez MD Unavailable Unavailable Unavailable Unavailable Functional Status Name Dates Details Functional status health issues are not documented Status: Name Dates Details Cognitive status health issues are not documented Status: Problems Name Dates Details Chronic pain (338.29, G89.29) Status: Active Anemia (285.9, D64.9) Status: Active Pain, low back (724.2, M54.5) Status: Active Abdominal wall mass (789.30, R22.2) Status: Active Constipation, chronic (564.00, K59.09) Status: Active Cirrhosis of liver with ascites, unspecified hepatic cirrhosis type (571.5, K74.60) Status: Active Lumbosacral radiculopathy at L4 (724.4, M54.17) Status: Active Medications Name Dates Details chlordiazePOXIDE HCl - 10 MG Oral Capsule [facility] * Start : 11-Nov-2018 Active Spironolactone 50 MG Oral Tablet * Refills: 0 [facility] * Start : 11-Nov-2018 Active Propranolol HCl - 10 MG Oral Tablet * Refills: 0 [facility] * Start : 11-Nov-2018 Active Furosemide 40 MG Oral Tablet * Refills: 0 [facility] * Start : 11-Nov-2018 Active Omeprazole 40 MG Oral Capsule Delayed Release * Refills: 0 [facility] * Start : 11-Nov-2018 Active Folic Acid 1 MG Oral Tablet * Refills: 0 [facility] * Start : 11-Nov-2018 Active traMADol HCl - 50 MG Oral Tablet * Refills: 0 [facility] * Start : 11-Nov-2018 Active Ondansetron HCl - 4 MG Oral Tablet * Refills: 0 [facility] Mirza * Start : 11-Nov-2018 Active Cyclobenzaprine HCl - 10 MG Oral Tablet TAKE 1 TABLET 3 TIMES DAILY NEEDED. * Quantity: 12 Refills: 1 JUAN A HERNANDEZ M.D. Start : 01-Dec-2018 Active Capsaicin 0.1 % External Cream APPLY GENTLY TO AFFECTED AREA 3-4 TIMES DAILY. * Quantity: 1 Refills: 3 JUAN A HERNANDEZ M.D. * Start : 01-Dec-2018 Active 42.5 GM Tube Generlac 10 GM/15ML Oral Solution TAKE 15 ML DAILY as needed for constipation * Quantity: 1 Refills: 5 JUAN A HERNANDEZ M.D. Start : 01-Dec-2018 Active 473 ML Bottle Allergies and Adverse Reactions Name Dates Details No Known Drug Allergies (Allergy) Status: Active Past Medical History Name Dates Details History of cirrhosis (V12.79, Z87.19) Status: Resolved Procedures Procedure Dates Details US Abdomen complete [id number] Date: 12-Nov-2018 [B] CT LUMBAR SP W/O CONT Date: 02-Dec-2018 History of Pelvic surgery Completed Immunization Name Dates Details Immunizations not documented Family History Name Dates Details Family history of diabetes mellitus (V18.0, Z83.3) Status: Active Name Dates Details Family history of High cholesterol (272.0, E78.00) Status: Active Family history of hypertension (V17.49, Z82.49) Status: Active Name Dates Details Family history of diabetes mellitus (V18.0, Z83.3) Status: Active Family history of hypertension (V17.49, Z82.49) Status: Active Social History Name Dates Details - Status: Name Dates Details Never smoker Vital Signs Date Test Result Details [id number] Physical Findings 16 Status: Comments: PHQ-9 Adult Depression Screening Physical Findings 0 Status: Comments: Alcohol Screen - How many times in the past yr have you had 5 (for M) or 4 (for F) or 4 (for all > 65yrs) or more drinks in a day? [id number] BP Systolic 140 mm[Hg] Status: Comments: Location: LUE; Position: Sitting BP Diastolic 70 mm[Hg] Status: Comments: Location: [facility] [place]; Position: Sitting Height 69 in Status: Weight 197 lb Status: Body Mass Index Calculated 29.09 kg/m2 Status: Body Surface Area Calculated 2.05 m2 Status: Temperature 98.2 f Status: Comments: Method: Temporal Respiration Rate 16 /min Status: Heart Rate 87 /min Status: [id number] BP Systolic 109 mm[Hg] Status: Comments: Location: [facility] [place]; Position: Sitting BP Diastolic 64 mm[Hg] Status: Comments: Location: E; Position: Sitting Height 69 in Status: Weight 226 lb Status: Body Mass Index Calculated 33.37 kg/m2 Status: Body Surface Area Calculated 2.18 m2 Status: Temperature 97 f Status: Comments: Method: Temporal Respiration Rate 16 /min Status: Heart Rate 73 /min Status: Results Date Description Value Details :26 [QH] LIPID PANEL WITH REFLEX TO DIRECT LDL CHOLESTEROL, TOTAL 125 mg/dl (Normal) Range: <200 Comments: Results slightly decreased due to icteric nature of the specimen. HDL CHOLESTEROL 12 mg/dl (Below low threshold) Range: >40 TRIGLYCERIDES 57 mg/dl (Normal) Range: <150 LDL-CHOLESTEROL 99 {MG/DL__CAL} (Normal) Comments: Reference range: <100 Desirable range <100 mg/dL for primary prevention; <70 mg/dL for patients with CHD or diabetic patients with > or=2 CHD risk factors. LDL-C is now calculated using leah Toscano calculation, which is a validated novel method providing better accuracy than the Friedewald equation in the estimation of LDL-C. Stephen MAHMOOD et al. MARTÍNEZ. 2013;310(19): 0019-4245 (http:/ /education.IceWEB.HeartThis/faq/TKI297) CHOL/HDLC RATIO 10.4 {CALC} (Above high threshold) Range: <5.0 NON HDL CHOLESTEROL 113 {MG/DL__CAL} (Normal) Range: <130 Comments: For patients with diabetes plus 1 major ASCVD risk factor, treating to a non-HDL-C goal of <100 mg/dL (LDL-C of <70 mg/dL) is considered a therapeutic option. [id number]:26 [[facility]] CMP W/EGFR GLUCOSE 89 mg/dl (Normal) Range: 65-99 Comments: Fasting reference interval UREA NITROGEN (BUN) 11 mg/dl (Normal) Range: 7-25 CREATININE 0.61 mg/dl (Below low threshold) Range: 0.70-1.33 Comments: For patients >49 years of age, the reference limitfor Creatinine is approximately 13% higher for peopleidentified as -[place]. eGFR NON- 113 {ML/MIN/1.7} (Normal) Range: > OR=60 eGFR 131 {ML/MIN/1.7} (Normal) Range: > OR=60 BUN/CREATININE RATIO 18 {CALC} (Normal) Range: 6-22 SODIUM 129 mmol/L (Below low threshold) Range: 135-146 POTASSIUM 4.4 mmol/L (Normal) Range: 3.5-5.3 CHLORIDE 98 mmol/L (Normal) Range: 98-110 CARBON DIOXIDE 25 mmol/L (Normal) Range: 20-32 CALCIUM 8.0 mg/dl (Below low threshold) Range: 8.6-10.3 PROTEIN, TOTAL 8.3 g/dl (Above high threshold) Range: 6.1-8.1 ALBUMIN 2.5 g/dl (Below low threshold) Range: 3.6-5.1 GLOBULIN 5.8 {G/DL__CALC} (Above high threshold) Range: 1.9-3.7 ALBUMIN/GLOBULIN RATIO 0.4 {CALC} (Below low threshold) Range: 1.0-2.5 BILIRUBIN, TOTAL 7.2 mg/dl (Above high threshold) Range: 0.2-1.2 ALKALINE PHSPHATASE 92 u/l (Normal) Range: 40-115 AST 92 u/l (Above high threshold) Range: 10-35 ALT 34 u/l (Normal) Range: 9-46 [id number] [[facility]] CBC (INCLUDES DIFF/PLT) WHITE BLOOD CELL COUNT 5.4 {Thousand/u} (Normal) Range: 3.8-10.8 RED BLOOD CELL COUNT 2.69 {Million/uL} (Below low threshold) Range: 4.20-5.80 HEMAGLOBIN 8.4 g/dl (Below low threshold) Range: 13.2-17.1 HEMATOCRIT 22.7 % (Below low threshold) Range: 38.5-50.0 MCV 84.4 fL (Normal) Range: 80.0-100.0 MCH 31.2 pg (Normal) Range: 27.0-33.0 MCHC 37.0 g/dl (Above high threshold) Range: 32.0-36.0 Comments: Verified by repeat analysis. RDW 18.0 % (Above high threshold) Range: 11.0-15.0 PLATELET COUNT 132 {Thousand/u} (Below low threshold) Range: 140-400 MPV 10.2 fL (Normal) Range: 7.5-12.5 ABSOLUTE NEUTROPHILS 3110 {cells/uL} (Normal) Range: 5252-6836 ABSOLUTE LYMPHOCYTES 1469 {cells/uL} (Normal) Range: 850-3900 ABSOLUTE MONOCYTES 670 {cells/uL} (Normal) Range: 200-950 ABSOLUTE EOSINOPHILS 59 {cells/uL} (Normal) Range: 15-500 ABSOLUTE BASOPHILS 92 {cells/uL} (Normal) Range: 0-200 NEUTROPHILS 57.6 % (Normal) LYMPHOCYTES 27.2 % (Normal) MONOCYTES 12.4 % (Normal) EOSINOPHILS 1.1 % (Normal) BASOPHILS 1.7 % (Normal) COMMENT(S) Comments: Review of peripheral smear confirmsautomated results. [id number] [[facility]] HEMOGLOBIN A1c Comments: REPORT COMMENT:FASTING:YES HEMOGLOBIN A1c 4.2 {%_of_total} (Normal) Range: <5.7 Comments: For the purpose of screening for the presence ofdiabetes: <5.7% Consistent with the absence of diabetes5.7-6.4% Consistent with increased risk for diabetes (prediabetes)> or=6.5% Consistent with diabetes This assay result is consistent with a decreased riskof diabetes. Currently, no consensus exists regarding use ofhemoglobin A1c for diagnosis of diabetes in children. According to [place] Diabetes Association (ADA)guidelines, hemoglobin A1c <7.0% represents optimalcontrol in non- diabetic patients. Differentmetrics may apply to specific patient populations. Standards of Medical Care in Diabetes(ADA). [id number]:08 XRAY Spine lumbar AP lateral [id number] Spine lumbar AP lateral SEE NOTES Comments: EXAM: XR LUMBAR SPINE 2 VIEWSDATE: 12/01/2018 12:08 CDTINDICATION: - pain low backCOMPARISON: NoneTECHNIQUE: AP and lateral radiographs of the lumbar spineFINDINGS: 5 lumbar type, non-rib bearing vertebral bodies are present.Alignment and vertebral body heights are normal. There is mild narrowing ofL4-L5 disc space with marginal osteophyte formation. There is also mildnarrowing of L2-L3 disc space and L5-S1 disc space. Marginal osteophytosisnoted throughout the lumbar spine mainly anterior osteophyte formation. Severefacet arthropathy visualized at L4-L5 and L5-S1. Mild facet arthropathy notedat L3-L4.Left iliac wing and left hip hardware partially imaged.No soft tissue abnormality is identified.IMPRESSION:1. Moderate degenerative changes L4-S1 visualized.--Read by: Nicol Wolfe MDDicta [email or web address] Date/time: 12/01/18 13:13Electronically Signed by: Nicol Wolfe MD 12/01/1912:15FINAL REPORT Plan of Care Name Dates Details Planned Observations Planned Goals not documented Planned Encounters Appointment; JAYLON JACKSON M.D. On: 09-Feb-2019 8:00 Interventions Provided Labs/Procedures/Imaging* [B] CT LUMBAR SP W/O CONT; To Be Done: 02 Dec 2018 Discussion/Summary* Some disc narrowing is seen at L4-5, L2-3, and L5-S1. Will order CT scan to further evaluate (has harward as a result of an old study. Instructions Name Dates Details Instructions not documented Encounters Appointment; JUAN A HERNANDEZ M.D. Encounter Diagnosis: Problem not documented On: 11-Nov-2018 10:15 Appointment; JUAN A HERNANDEZ M.D. Encounter Diagnosis: Problem not documented On: 01-Dec-2018 10:45
[2018-12-03] MEDS ORDERED: KETOROLAC TROMETHAMINE 60 MG/2 ML VIAL IM ONE (14:45)
[2018-12-03] MEDS ORDERED: HYDROCODONE/APAP 10MG-325MG TAB PO ONE (14:45)
[2018-12-03] MEDS ORDERED: DIAZEPAM 5 MG TAB PO PRN (14:45)
[2018-12-03] MEDS ORDERED: DEXAMETHASONE SOD PHOS 10 MG/1 ML VIAL IM ONE (14:45)
[2018-12-03 15:56] LABS: BILIRUBIN,URINE NEGATIVE (NEGATIVE); CLARITY,URINE SL CLOUDY (CLEAR); COLOR,URINE YELLOW (YELLOW); KETONES,URINE NEGATIVE (NEGATIVE); LEUKOCYTE ESTERASE ,URINE NEGATIVE (NEGATIVE); NITRITE,URINE NEGATIVE (NEGATIVE); PROTEIN,URINE DIPSTICK NEGATIVE (NEGATIVE); URINE UROBILINOGEN 4 mg/dL (0.2 - 1)
--- NOTE | 2018-12-03 15:56 | Diagnostic Imaging Report ---
EXAMINATION: CT of the lumbar spine HISTORY: Severe low back pain for the last month after a fall/injury. COMPARISON: Abdomen CT 11/14/2018 TECHNIQUE: Multidetector helical axial images were obtained without contrast from L1 to S1. The images were reconstructed using bone and soft tissue algorithms and were viewed in axial, sagittal, and coronal planes. Dose modulation, iterative reconstruction, and/or weight based adjustment of the mA/kV was utilized to reduce the radiation dose to as low as reasonably achievable. FINDINGS: Alignment: Normal alignment and lordosis. Vertebral bodies: Subacute mild compression fracture of the superior endplate of S1 and to a lesser extent the inferior endplate of L5, no definite posterior retropulsion of bone fragments within the spinal canal. This fracture was not present on abdomen CT of 11/04/2018. Paraspinal muscles: Swelling of the L5-S1 paraspinal soft tissues, possible hematoma. Intervertebral disks: L1-L2: Mild symmetric disc bulge and facet arthroses without significant stenosis.. L2-L3: Symmetric distortion of the thoracic stenosis. Mild canal narrowing. No foraminal stenosis. L3-L4: Mild symmetric disc bulge and facet arthrosis. Mild canal narrowing.. L4-L5: Decreased disc height, asymmetric to the right disc bulge, ligamenta flava thickening and facet arthrosis. Moderate canal and foraminal stenoses worst on the right. L5-S1: Decreased disc height, symmetric disc bulge, marginal endplate osteophytes and facet arthrosis. Mild canal and moderately severe foraminal stenoses. The spinal canal contents cannot be evaluated. Incidental findings: Partially visualize ORIF of the right pelvic fracture. Mild thickening of the urinary bladder wall. IMPRESSION: 1. Subacute compression fracture of the inferior endplate of L5 and superior endplate of S1 which was not seen on prior abdomen CT of 11/14/2018. Consider lumbar spine MRI and radiology IR consult for possible kypho/vertebroplasty. 2. Associated paraspinal soft tissue swelling/hematoma at L5-S1, extension within the spinal canal/foramina cannot totally be excluded, this can further be evaluated with lumbar spine MRI as well. 3. Moderate degenerative chronic foraminal stenosis at L4-L5 and severe at L5-S1. 4. Mild multilevel degenerative changes in the remaining levels of thecal above. Note is made that acute post traumatic spinal cord, vascular ligaments injury cannot adequately be assessed with CT. The findings were discussed with the ER physician Dr. Cabrera on 12/13/2018 at 3:45 PM Signed by: Dr. Estefany Rubio M.D. on 12/03/2018 3:53 PM
[2018-12-03 16:08] LABS: BACTERIA,URINE FEW /HPF
[2018-12-03] MEDS ORDERED: ONDANSETRON HCL INJ 2MG/ML 2ML 2 MG/ML VIAL IV PRN (16:45)
[2018-12-03] MEDS ORDERED: HYDROMORPHONE 1MG/1ML INJ IV PRN (16:45)
[2018-12-03] MEDS: SODIUM CHLORIDE 0.9% 1000ML 1,000 ML IV SCH (17:34)
[2018-12-03 17:44] LABS: BASOPHILS % 0.5 % (0.0-1.0); EOSINOPHILS % 0.3 % (0.0-6.0); HEMATOCRIT 24.9 % (38.2-49.6); HEMOGLOBIN 8.3 g/dL (14.0-18.0); LYMPHOCYTES # (AUTO) 1.6 (1.0-3.2); LYMPHOCYTES % 26.9 % (18.0-39.1); MEAN CORPUSCULAR HEMOGLOBIN 31.8 pg (28-32); MEAN CORPUSCULAR HGB CONC 33.3 g/dL (31-35); MEAN CORPUSCULAR VOLUME 95.4 fL (81-99); MONOCYTES # (AUTO) 0.6 (0.2-0.8); MONOCYTES % 10.4 % (4.4-11.3); NEUTROPHILS # (AUTO) 3.7 (2.1-6.9); NEUTROPHILS % 61.6 % (38.7-80.0); PLATELET COUNT 155 x10e3/uL (140-360); RED BLOOD COUNT 2.61 x10e6/uL (4.3-5.7); RED CELL DISTRIBUTION WIDTH 18.6 % (11.7-14.4)
[2018-12-03 17:57] LABS: ALANINE AMINOTRANSFERASE 37 IU/L (0-55); ALBUMIN 2.4 g/dL (3.5-5.0); ALBUMIN/GLOBULIN RATIO 0.4 (0.8-2.0); ALKALINE PHOSPHATASE 87 IU/L (40-150); ANION GAP 9.7 mmol/L (8-16); BLOOD UREA NITROGEN 13 mg/dL (7-26); BUN/CREATININE RATIO 14 (6-25); CALCIUM 8.8 mg/dL (8.4-10.2); CARBON DIOXIDE 23 mmol/L (22-29); CHLORIDE 98 mmol/L (98-107); EST GLOMERULAR FILTRATION RATE > 60 ML/MIN (60-); GLUCOSE 146 mg/dL (74-118); POTASSIUM 3.7 mmol/L (3.5-5.1); SODIUM 127 mmol/L (136-145)
[2018-12-03 18:30] VITALS: BP 126/81
--- NOTE | 2018-12-03 18:31 | NUR ---
RECEIVED PATIENT TO ROOM FROM ER. VITAL SIGNS STABLE, NO SIGNS OF DISTRESS. BED LOW, WHEELS LOCKED, CALL LIGHT IN REACH. WILL CONTINUE TO MONITOR.
[2018-12-03 20:00] VITALS: BP 126/81
[2018-12-03 21:53] VITALS: BP 126/81
[2018-12-03] MEDS: HYDROMORPHONE 2MG/ML 2 MG/ML ML IV PRN (22:15)
[2018-12-04] VITALS (7 sets, daily range): BP systolic 108–131; BP diastolic 55–75
[2018-12-04] MEDS: HYDROMORPHONE 2MG/ML 2 MG/ML ML IV PRN ×6 (03:00→23:06)
[2018-12-04] MEDS: SODIUM CHLORIDE 0.9% 1000ML 1,000 ML IV SCH (03:02)
[2018-12-04 06:35] LABS: HEMATOCRIT 20.9 % (38.2-49.6); HEMOGLOBIN 7.1 g/dL (14.0-18.0); LYMPHOCYTES # (AUTO) 0.5 (1.0-3.2); LYMPHOCYTES % 14.3 % (18.0-39.1); MEAN CORPUSCULAR HEMOGLOBIN 31.7 pg (28-32); MEAN CORPUSCULAR VOLUME 93.3 fL (81-99); MONOCYTES # (AUTO) 0.1 (0.2-0.8); MONOCYTES % 3.6 % (4.4-11.3); NEUTROPHILS % 81.5 % (38.7-80.0); PLATELET COUNT 113 x10e3/uL (140-360); RED BLOOD COUNT 2.24 x10e6/uL (4.3-5.7); RED CELL DISTRIBUTION WIDTH 18.2 % (11.7-14.4)
--- NOTE | 2018-12-04 06:56 | NUR ---
SPOKE TO DR. GRAF AT THIS REGARDING HGB 7.1 AND HCT 20.9. NEW ORDER RCV TO GIVE 2 PRBC'S.
[2018-12-04 06:59] LABS: ALANINE AMINOTRANSFERASE 32 IU/L (0-55); ALBUMIN 2.2 g/dL (3.5-5.0); ALBUMIN/GLOBULIN RATIO 0.4 (0.8-2.0); ALKALINE PHOSPHATASE 81 IU/L (40-150); ANION GAP 8.2 mmol/L (8-16); BLOOD UREA NITROGEN 19 mg/dL (7-26); BUN/CREATININE RATIO 24 (6-25); CALCIUM 8.7 mg/dL (8.4-10.2); CARBON DIOXIDE 23 mmol/L (22-29); CHLORIDE 101 mmol/L (98-107); CREATININE, SERUM 0.78 mg/dL (0.72-1.25); EST GLOMERULAR FILTRATION RATE > 60 ML/MIN (60-); GLUCOSE 120 mg/dL (74-118); POTASSIUM 4.2 mmol/L (3.5-5.1); SODIUM 128 mmol/L (136-145)
[2018-12-04] MEDS ORDERED: SODIUM CHLORIDE 0.9% 250ML 250 ML IV ONE (07:00)
--- NOTE | 2018-12-04 07:18 | NUR ---
REPORT GIVEN TO MARIZA WEST.
--- NOTE | 2018-12-04 07:30 | NUR ---
RECEIVED PT TO FLOOR [id number]. PT IS ON BEDREST TO COMPRESSION FX PT IS ON IV FLUIDS TO THE RIGHT AC 20 WITH NS AT 100, IV SITE IS CLEAN AND DRY PT IS NPO FOR SCHEDULED PROCEDURE TODAY (CONSENT SIGNED) PT FAMILY IS AT BEDSIDE, WILL CONTINUE TO MONITOR AT THIS TIME SIDE RAILSX2, BED WHEELS LOCKED, CALL LIGHT IS WITHIN EASY REACH, INSTRUCTED TO CALL FOR ASSISTANCE IF NEEDED
[2018-12-04] MEDS ORDERED: FUROSEMIDE INJ 10 MG/ML 4 ML VIAL IV ONE (08:15)
[2018-12-04] MEDS ORDERED: PROPRANOLOL HCL10 MG PO (08:56)
[2018-12-04] MEDS ORDERED: SPIRONOLACTONE25 MG PO (08:56)
[2018-12-04] MEDS ORDERED: OMEPRAZOLE40 MG PO (08:56)
[2018-12-04] MEDS ORDERED: CYCLOBENZAPRINE10 MG PO (08:56)
[2018-12-04] MEDS ORDERED: FUROSEMIDE40 MG PO (08:56)
--- NOTE | 2018-12-04 09:06 | NUR ---
CALLED RADIOLOGY FOR CLARIFICATION OF WHEN PROCEDURE IS GOING TO TAKE PLACE (VERTEBROPLASTY ) SPOKE TO KATARINA, STATES THEY WILL CALL ME BACK WHEN FINDING OUT MORE INFORMATION
[2018-12-04] MEDS ORDERED: CHLORDIAZEPOXID25 MG PO (09:15)
[2018-12-04] MEDS ORDERED: ULTRAM50 MG PO (09:15)
[2018-12-04] MEDS ORDERED: ZOFRAN4 MG PO (09:15)
[2018-12-04] MEDS ORDERED: METRONIDAZOLE500 MG PO (09:15)
[2018-12-04] MEDS ORDERED: BENZONATATE100 MG PO (09:15)
[2018-12-04] MEDS ORDERED: CEPHALEXIN500 MG PO (09:15)
[2018-12-04] MEDS ORDERED: FOLIC ACID1 MG PO (09:15)
--- NOTE | 2018-12-04 10:10 | NUR ---
RECALLED RADIOLOGY FOR UPDATE ON PROCEDURE. PENDING AT THIS TIME
[2018-12-04 10:13] LABS: INR 2.12; PROTHROMBIN TIME 24.4 seconds (11.9-14.5)
--- NOTE | 2018-12-04 11:23 | NUR ---
MD CASTAÑEDA HAS ROUNDED FOR MD STOKES AND STATES TO CHANGE BLOOD TRANSFUSION FROM 2 TO 1 BAG ONLY DUE TO INCREASED RISK OF BLEEDING ORDERS CHANGED, CONTACTED BLOOD BANK AT THIS TIME
--- NOTE | 2018-12-04 11:25 | Diagnostic Imaging Report ---
History: Low back pain Comparison studies: CT of the lumbar spine 12/03/2018 Technique: Sagittal T1, T2 and IR, axial T2 with and without fat sat and axial spin density oblique Intravenous contrast: None Findings: Number of lumbar vertebral bodies: 5 . Soft tissues: No T2 hyperintense inflammatory changes . Paraspinal muscles: No signal abnormalities. Well-preserved. No atrophic changes . Lower thoracic cord: Normal in size and signal. The tip of the conus is at L1. Cauda equina:No masses. No arachnoiditis . Metallic hardware at the right medial sacral joint, with surrounding blooming artifact Vertebrae: Edema signal at L5 inferior vertebral body and S1 superior vertebral body with associated fluid intensity signal at the intervertebral disc and paravertebral edema. Anterior epidural fluid collection. Degenerative changes: L1-L2 Disc degeneration with loss of T2 signal. Patent canal and foramina L2-L3: Disc degeneration with loss of T2 signal. Mild diffuse disc bulge and mild facet hypertrophy with patent canal and foramina] L3-L4: Disc degeneration with loss of T2 signal. Mild diffuse disc bulge and mild facet hypertrophy with patent canal and foramina L4-L5: Disc degeneration with loss of T2 signal. Diffuse disc bulge with superimposed central disc protrusion and moderate facet hypertrophy results in moderate canal stenosis, and mild bilateral foraminal narrowing more prominent on the right L5-S1: Fluid intensity signal at the intervertebral disc. Endplate irregularities and edema. Fluid intensity signal in the anterior prevertebral space results in severe thecal catheter sac compression and severe bilateral foraminal narrowing Additional abnormalities: None . IMPRESSION: Spondylodiscitis at L5-S1 and anterior epidural space abscess, results in severe thecal sac compression and severe bilateral neural foraminal narrowing at this level, recommend additional contrast images. Other mild degenerative changes as described above Signed by: DR Benedict Hughes M.D. on 12/04/2018 11:22 AM
[2018-12-04] MEDS ORDERED: PHYTONADIONE 10 MG/ML AMP IV ONE (11:30)
--- NOTE | 2018-12-04 11:36 | NUR ---
LEFT VOICEMAIL TO MD GRAF REGARDING RESULTS OF MRI SHOWING NO FRACTURE BUT INFECTION RATHER. LEFT VOICEMAIL, AWAITING FOR ADDITIONAL ORDERS
--- NOTE | 2018-12-04 12:20 | NUR ---
SPOKE WITH MD GRAF REGARDING MRI FINDINGS . NEW ORDERS RECEIVED
[2018-12-04] MEDS: PIPER-TAZ 3.375 GM 50 ML IV SCH ×2 (12:23→20:06)
[2018-12-04] MEDS ORDERED: PHYTONADIONE IV ONE (12:30)
[2018-12-04] MEDS ORDERED: SODIUM CHLORIDE 0.9% IV ONE (12:30)
--- NOTE | 2018-12-04 12:40 | NUR ---
SPOKE WITH MD TOVAR REGARDING MRI RESULTS . WANTS TWO ORDERS OF JUMBO PHERESIS. NOT DOING SX TODAY DUE TO COUG. IS ALLOWING PT TO EAT TODAY
[2018-12-04] MEDS ORDERED: PHYTONADIONE 10MG/ML 10 MG in SODIUM CHLORIDE 0.9% 50ML 50 ML IV ONE (12:45)
--- NOTE | 2018-12-04 13:43 | NUR ---
SPOKE WITH MD PELAYO WHO STATES PT WILL NEED [employer] ABX AND PICC LINE NEEDS TO BE PLACED ORDERS RECEIVED PT HAS SIGNED CONSENT
[2018-12-04] MEDS: VANCOMYCIN 1GM/NS 250 ML 250 ML IV SCH (14:00)
[2018-12-04] MEDS ORDERED: PIPER-TAZ 3.375 GM 50 ML IV SCH (15:00)
[2018-12-04] MEDS ORDERED: SODIUM CHLORIDE 0.9% 250ML 750 ML ONE (15:29)
--- NOTE | 2018-12-04 15:40 | NUR ---
STARTED FIRST BAG OF FFPT. VERIFIED WITH JENNA DAWKINS AT BEDSIDE. WILL MONITOR PT CLOSELY
--- NOTE | 2018-12-04 16:25 | NUR ---
SECOND BAG OF FFPT STARTED AT THIS TIME. VERIFIED WITH JENNA SANTANA AT BEDSIDE
--- NOTE | 2018-12-04 17:15 | NUR ---
1ST UNIT OF PRBC STARTED. VERIFIED WITH JENNA SANTANA AT BEDSIDE
--- NOTE | 2018-12-04 17:48 | Diagnostic Imaging Report ---
EXAMINATION: CHEST XRAY LINE PLACEMENT INDICATION: PICC LINE PLACEMENT COMPARISON: 11/04/18. FINDINGS: TUBES and LINES: Right upper extremity PICC with distal tip not well-visualized, however, definitely within the SVC, possibly extending to the cavoatrial junction. LUNGS: Lungs are well inflated. Lungs are clear. There is no evidence of pneumonia or pulmonary edema. PLEURA: No pleural effusion or pneumothorax. HEART AND MEDIASTINUM: Cardiac size is mildly enlarged. BONES AND SOFT TISSUES: No acute osseous lesion. Soft tissues are unremarkable. UPPER ABDOMEN: No free air under the diaphragm. IMPRESSION: Right upper extremity PICC with distal tip not well-visualized, however, definitely within the SVC, possibly extending to the cavoatrial junction. Signed by: Dr. Delfin Mao M.D. on 12/04/2018 5:45 PM
[2018-12-04] MEDS: PROPRANOLOL HCL 10 MG TAB PO SCH (17:54)
--- NOTE | 2018-12-04 17:59 | Consultation ---
DATE OF CONSULTATION: Gastroenterology Consultation REASON FOR CONSULTATION: Cirrhosis, history of esophageal varices status post banding last month. HISTORY OF PRESENT ILLNESS: Mr. Good is a 53-year-old man with history of alcoholic cirrhosis, portal hypertension, esophageal varices with bleeding and banding last month with Dr. Garcia. He was to follow up with Dr. Garcia as scheduled for colonoscopy and then again for repeat EGD with banding on the . He denies any hematemesis, nausea, vomiting, abdominal pain, melena, or rectal bleeding. He did slip at home and hurt his back previously. He is here complaining of back pain and has a concerning CT. His MRI of the back has already been done and is pending read by Radiology. PAST MEDICAL HISTORY: Alcoholic cirrhosis as mentioned above. MEDICATIONS: Reviewed, please see [facility] medication reconciliation form. ALLERGIES: REVIEWED, PLEASE SEE [facility] MEDICATION RECONCILIATION FORM. SOCIAL HISTORY: He quit drinking two weeks prior to his most recent admission, so about six weeks of sobriety. FAMILY HISTORY: Noncontributory. REVIEW OF SYSTEMS: Ten system review is positive for weakness and back pain. PHYSICAL EXAMINATION: GENERAL: He is calm, alert, oriented, in no acute distress, lying in bed. HEENT: Pupils are equal, round, and reactive to light. NECK: Supple. LUNGS: Clear. CARDIOVASCULAR: S1, S2. ABDOMEN: Soft, nontender, nondistended with normal bowel sounds. EXTREMITIES: No clubbing, cyanosis, or edema. PSYCH: Calm, cooperative, but dysphoric. NEUROLOGIC: He is alert and oriented. His lower extremity was not tested, I am confining myself to GI issues. The electronic health records reviewed for laboratory and radiologic studies as well as history. ASSESSMENT: 1. Acute on subacute back issue with possible bleeding on CT scan. 2. Anemia, acute on chronic. 3. Decompensated cirrhosis, alcoholic with history of portal hypertension and varices. PLAN: At the current time, he does not appear to have any GI bleeding. I will do banding electively as he does not have any acute bleeding issues. I would avoid over transfusion and I have recommended instead of 2 units just 1 now, discussed with nurse. I would also recommend that he is not given any NSAIDs. I will defer his back problems to others; however, if there is significant bleeding, I would thus recommend correction of his coagulopathy as his INR is 2. Thank you very much for asking me to see Mr. Good. Any questions or concerns, please do not hesitate to contact me. Roselyn Chapman MD RLS/NAUN /[id number]
--- NOTE | 2018-12-04 21:40 | Consultation ---
DATE OF CONSULTATION: HISTORY OF PRESENT ILLNESS: This patient comes in with back pain. The patient apparently has been having this pain for a couple of weeks. The patient had no fever, no chills. He had an injury on November 14. He fell which took place at home, but the pain has been getting progressively worse. He saw his PCP. He is in the emergency room to be evaluated. In the emergency room, he had a CT of the lumbar spine, which showed spondylodiscitis L5-S1 with epidural space abscess. Blood culture is pending. LABORATORY DATA: White count 6.03, hemoglobin 8. Sodium 127, potassium 3.7. PAST MEDICAL HISTORY: Denies. PAST SURGICAL HISTORY: Denies. ALLERGIES: NKA. SOCIAL HISTORY: There is no smoking, drug abuse, or alcohol abuse. FAMILY HISTORY: Otherwise, unremarkable. REVIEW OF SYSTEMS: HEENT: Negative. PULMONARY: Negative. CARDIAC: Negative. : Negative. GI: Negative. SKIN: There are no other rashes. All 14 symptoms are within normal limits. LABORATORY DATA: His lab data reviewed. PHYSICAL EXAMINATION: GENERAL: He is currently alert, oriented, does not seem to be in acute distress. VITAL SIGNS: Stable. Currently afebrile. HEENT: Normocephalic, not icteric. NECK: Supple. CHEST: Clear. HEART: S1, S2. ABDOMEN: Soft. Bowel sounds present. EXTREMITIES: No edema. IMPRESSION: Diskitis. Recommend CT guided aspiration. Agree with vancomycin and agree with Zosyn. Neurosurgery evaluation. Obtain sedimentation rate and C-reactive protein. Further recommendations to follow. Probably need 8 weeks of IV antibiotic. We will follow. MD APURVA Naqvi/NAUN /[id number]
[2018-12-04 21:51] LABS: INR 1.82; PROTHROMBIN TIME 21.7 seconds (11.9-14.5)
--- NOTE | 2018-12-04 22:00 | Consultation ---
DATE OF CONSULTATION: 12/04/2018 REASON FOR CONSULTATION: Lumbar diskitis. HISTORY OF PRESENT ILLNESS: The patient is a 53-year-old alcoholic cirrhotic man who presents with a 4-week history of progressively worsening low back pain. He has been taking Blue Eye at home for this. Over the past 2 weeks, the pain has become substantially worse. He is still able to ambulate, but has substantially worsening pain with standing. He denies any bladder incontinence. He had an MRI today, which revealed L5-S1 diskitis associated with a ventral epidural abscess producing narrowing of the dural sac from L5-S1 region. He has been started on intravenous antibiotics, and Infectious Disease consultation has been obtained. He is currently receiving FFP for correction of his cirrhotic coagulopathy. PHYSICAL EXAMINATION: NEUROLOGIC: On examination, the patient is alert and oriented. He is comfortable in bed. He is able to sit up on his own and stand without assistance. He can take a few steps, but says that his back hurts worse when he stands and walks. Straight leg raising is positive on the right at 30 degrees and negative on the left. Motor strength is diminished in the anterior tibialis and gastrocnemius muscles bilaterally, specifically worse in the right gastrocnemius. Sensation to light touch and pinprick is diffusely diminished below the knees, symmetric. Deep tendon reflexes are absent in the patellar and Achilles tendons. Plantar responses are flexor. IMAGING DATA: MRI of the lumbar spine reveals L5-S1 diskitis with a ventral epidural abscess that extends behind the vertebral bodies of L5 and S1 and produces significant constriction of the dural sac in this region. IMPRESSION: L5-S1 diskitis and epidural abscess in the setting of alcoholic cirrhotic coagulopathy with markedly elevated prothrombin time. Fortunately, his platelet count is adequate. RECOMMENDATIONS: Continue with FFP transfusions and vitamin K tonight. Hopefully by tomorrow, his coagulopathy will be corrected and we can proceed with surgery for evacuation of epidural abscess and infected disk. He should receive blood cultures today, erythrocyte sedimentation rate, C-reactive protein, and get started on intravenous IV antibiotics. I spoke to the patient and his family. I explained the risks and benefits of surgery and the consequences of not proceeding with surgery including paralysis, meningitis, and . I explained the risks of surgery including persistent infection, CSF leakage, meningitis, and persistent pain. I explained that sometimes after the infection has completely resolved, he may continue to have back pain and may require lumbar fusion at a later date. He understands that he will require long-term intravenous antibiotics for at least 6 weeks after the surgery. He gives informed consent to proceed with surgery. Arsen Lepe MD PP/NAUN /[id number]
[2018-12-04] MEDS ORDERED: SODIUM CHLORIDE 0.9% 250ML 250 ML ONE (23:33)
[2018-12-05] VITALS (7 sets, daily range): BP systolic 109–134; BP diastolic 61–73
[2018-12-05] MEDS ORDERED: SODIUM CHLORIDE 0.9% 250ML 250 ML ONE ×2 (00:37→12:08)
[2018-12-05] MEDS: PIPER-TAZ 3.375 GM 50 ML IV SCH ×4 (01:30→18:39)
[2018-12-05] MEDS: HYDROMORPHONE 2MG/ML 2 MG/ML ML IV PRN ×4 (03:01→20:54)
[2018-12-05 06:57] LABS: BASOPHILS % 0.1 % (0.0-1.0); HEMATOCRIT 21.9 % (38.2-49.6); HEMOGLOBIN 7.8 g/dL (14.0-18.0); LYMPHOCYTES # (AUTO) 1.1 (1.0-3.2); LYMPHOCYTES % 11.4 % (18.0-39.1); MEAN CORPUSCULAR HEMOGLOBIN 32.8 pg (28-32); MEAN CORPUSCULAR HGB CONC 35.6 g/dL (31-35); MONOCYTES # (AUTO) 0.9 (0.2-0.8); MONOCYTES % 9.4 % (4.4-11.3); NEUTROPHILS # (AUTO) 7.3 (2.1-6.9); NEUTROPHILS % 78.3 % (38.7-80.0); PLATELET COUNT 140 x10e3/uL (140-360); RED BLOOD COUNT 2.38 x10e6/uL (4.3-5.7); RED CELL DISTRIBUTION WIDTH 18.3 % (11.7-14.4)
[2018-12-05 07:22] LABS: BLOOD UREA NITROGEN 22 mg/dL (7-26); BUN/CREATININE RATIO 30 (6-25); CALCIUM 9.2 mg/dL (8.4-10.2); CARBON DIOXIDE 24 mmol/L (22-29); CHLORIDE 102 mmol/L (98-107); CREATININE, SERUM 0.74 mg/dL (0.72-1.25); EST GLOMERULAR FILTRATION RATE > 60 ML/MIN (60-); GLUCOSE 108 mg/dL (74-118); SODIUM 132 mmol/L (136-145)
[2018-12-05] MEDS: PANTOPRAZOLE SOD 40 MG TABEC PO SCH ×2 (07:30→08:19)
--- NOTE | 2018-12-05 07:46 | NUR ---
MET PATIENT FOR BEDSIDE REPORT, PATIENT SHOWED NO SIGNS OF DISTRESS, PATIENT DENIED PAIN, PATIENT ALERT ORIENTED TO PERSON, PLACE AND TIME.
[2018-12-05] MEDS: PROPRANOLOL HCL 10 MG TAB PO SCH ×2 (08:19→18:39)
[2018-12-05 09:24] LABS: INR 1.65; PROTHROMBIN TIME 20.1 seconds (11.9-14.5)
[2018-12-05] MEDS ORDERED: PHYTONADIONE 1 MG/0.5 ML AMP INJ ONE (10:00)
[2018-12-05] MEDS ORDERED: PHYTONADIONE 10 MG/ML AMP SQ ONE (10:00)
[2018-12-05] MEDS ORDERED: PHYTONADIONE 10MG/ML 10 MG in SODIUM CHLORIDE 0.9% 50ML 50 ML IV ONE (10:15)
[2018-12-05] MEDS ORDERED: ONDANSETRON HCL 4 MG ORAL DISINTEGRATING TAB SL PRN (10:45)
--- NOTE | 2018-12-05 11:22 | NUR ---
EDUCATED ABOUT IMM, SIGNED, FILED IN CHART, WITH COPY LEFT WITH FAMILY AT BEDSIDE.
[2018-12-05] MEDS: VANCOMYCIN 1GM/NS 250 ML 250 ML IV SCH (12:15)
[2018-12-05] MEDS ORDERED: BACITRACIN 50,000 UNIT VIAL ONE (14:07)
[2018-12-05] MEDS ORDERED: BUPIVACAINE 0.5%/EPI 30 ML SDV INJ ONE (14:07)
[2018-12-05] MEDS ORDERED: THROMBIN FOR SOLN 5,000 UNIT VIAL ONE (14:07)
[2018-12-05] MEDS ORDERED: GELATIN SPONGE 12-7MM ONE (14:07)
[2018-12-05] MEDS ORDERED: LIDOCAINE HCL (LTA) 4 ML SOLN ONE (15:31)
[2018-12-05] MEDS ORDERED: MORPHINE SULFATE INJ 4 MG/ML INJ 1ML ONE (17:11)
--- NOTE | 2018-12-05 18:15 | NUR ---
RECEIVED PATIENT FROM PACU, PATIENT ALERT AND CONFUSED, STATING THAT HE NEED TO GO HOME AND FEED HIS DIG, FAMILY AT BEDSIDE, PATIENT HAS HEMOVAC IN HIS LUMBAR SPINE WITH SCANT DRAINAGE IN THE DRAIN TUBE, PATIENT HAS SCDs AND THIGH HIGH TEDs ON BILATERAL LOWER EXTREMITIES, PATIENT'S BED ALARM IS ON, PATIENT SHOWS NO SIGNS AF ACUTE DISTRESS.
[2018-12-05] MEDS ORDERED: SEVOFLURANE INHAL SOLN 250 ML PEN BTL ONE (18:17)
[2018-12-05] MEDS ORDERED: LIDOCAINE HCL 2% LOCAL INJ 5 ML SDV VIAL INJ ONE (18:17)
[2018-12-05] MEDS ORDERED: ROCURONIUM BROMIDE 10 MG/ML 5ML VIAL ONE (18:17)
[2018-12-05] MEDS ORDERED: DEXAMETHASONE SOD PHOS INJ 4 MG/ML VIAL ONE (18:17)
[2018-12-05] MEDS ORDERED: ONDANSETRON HCL INJ 2MG/ML 2ML 2 MG/ML VIAL ONE (18:17)
[2018-12-05] MEDS ORDERED: PROPOFOL IV EMULSION 10 MG/ML 20 ML VIAL ONE (18:17)
[2018-12-05] MEDS ORDERED: NEOSTIGMINE 5 MG/5ML SYR ONE (18:17)
[2018-12-05] MEDS ORDERED: GLYCOPYRROLATE INJ 1MG/ 5 ML SYR ONE (18:17)
[2018-12-05] MEDS: HYDROMORPHONE 2MG/ML 2 MG/ML ML ONE (18:21)
[2018-12-05] MEDS ORDERED: MIDAZOLAM HCL 2 MG/2 ML VIAL ONE (18:42)
[2018-12-05] MEDS ORDERED: FENTANYL CITRATE/PF 100MCG/2 ML INJ ONE (18:42)
--- NOTE | 2018-12-05 19:10 | NUR ---
Received patient in bedside report. A&Ox3. Lungs clear. Bowel sounds active. SCDs and STU hose in place. Wound vac to lumbar spine has small amount of drainage on dressing, otherwise C/D/I. R upper arm PICC line asymptomatic, intact, and patent. Bed alarm on. Patient provided with non-skid footwear and instructed to call for assistance. No edema noted. Bed locked in lowest position. Call light in reach.
--- NOTE | 2018-12-05 21:45 | NUR ---
Patient wanted to get out of bed, move around, perform personal hygiene. Assisted patient to stand, ensured steady gait. Stayed with patient to ensure safety. Explained he needed to call when he wanted to get up again, patient verbalized understanding.
--- NOTE | 2018-12-05 22:55 | Operative Report ---
DATE OF PROCEDURE: 12/05/2018 SURGEON: Arsen Lepe MD PREOPERATIVE DIAGNOSIS: L5-S1 diskitis and epidural abscess, G06.1, M46.37. POSTOPERATIVE DIAGNOSIS: L5-S1 diskitis and epidural abscess, G06.1, M46.37. PROCEDURE: Left L5-S1 laminotomy and medial facetectomy for evacuation of epidural abscess, resection of epidural phlegmon, and evacuation of infected L5-S1 disk, [id number]. ANESTHESIA: General. INDICATIONS: The patient is a 53-year-old cirrhotic alcoholic man, who presents with L5-S1 diskitis and a ventral epidural abscess producing spinal stenosis with low back pain and bilateral leg pain. He was taken to the operating room for evacuation of epidural abscess and infected disk after receiving multiple units of FFP to partially correct his coagulopathy. DESCRIPTION OF PROCEDURE: After induction of general anesthesia, the patient was placed on the operating table in prone position over Daniel frame. Lumbar region was prepped and draped in sterile fashion. A preoperative x-ray was obtained. A small midline incision was created. Lumbar fascia was opened in left of midline and subperiosteal dissection was carried out to expose the left-sided L5 and S1 lamina and the medial aspect of the facet joint and second x-ray confirmed correct localization. The operating microscope was brought in. A high-speed drill equipped with wyatt bur was used to drill the inferior aspect of the lamina of L5 and superior aspect of the lamina of S1 and the medial rim of the L5-S1 facet joint. The ligamentum flavum was resected and the epidural fat was exposed. The epidural fat was found to be quite thickened posteriorly. It was dissected to reach the dura. The left S1 nerve root was then exposed and retracted medially. A thick epidural phlegmon came into view in the ventral epidural space. A ball probe was passed ventral to the S1 nerve root and dural sac and used to relieve the liquid pus between the ventral epidural space, which was then cultured. This was a grayish serous type of pus. The annulus of the disk was found to be quite soft. It was readily opened and liquified contents of the infected disk were visualized. The disk was also cultured. Its liquified contents were thoroughly evacuated with a pituitary rongeur and submitted as a pathological specimen. The wound was copiously irrigated with bacitracin solution including thorough irrigation of the L5-S1 disk space. A small Hemovac drain was placed within the disk space and brought out through a separate stab incision. The lumbar fascia was closed with 0 Vicryl sutures. The subcutaneous layer was closed with 2-0 Vicryl sutures. The skin was closed with 3-0 Monocryl sutures in subcuticular fashion. Steri-Strips and sterile dressing were applied. The patient was awakened, extubated, and taken to the postanesthesia care unit in stable condition. No intraoperative complications were encountered. Estimated blood loss was 30 mL. Arsen Lepe MD PP/NAUN /[id number]
--- NOTE | 2018-12-05 23:25 | Diagnostic Imaging Report ---
Exam: Lumbar spine one view History: Intraoperative localization Comparison: None. Findings: See impression Impression: Intraoperative localization directed toward L5-S1. Signed by: Dr. Basil Justice M.D. on 12/05/2018 11:21 PM
[2018-12-06] VITALS (9 sets, daily range): BP systolic 104–139; BP diastolic 60–72
[2018-12-06] MEDS: PIPER-TAZ 3.375 GM 50 ML IV SCH ×4 (00:01→17:17)
[2018-12-06] MEDS: HYDROMORPHONE 2MG/ML 2 MG/ML ML IV PRN ×5 (00:07→20:03)
--- NOTE | 2018-12-06 04:48 | NUR ---
Patient resting in bed at this time. Easily awoken. Pain reported to be manageable. No S&S of distress noted. Bed locked in lowest position, side rails upx2, call light in reach.
[2018-12-06 05:10] LABS: HEMATOCRIT 21.2 % (38.2-49.6); HEMOGLOBIN 7.3 g/dL (14.0-18.0); LYMPHOCYTES # (AUTO) 0.7 (1.0-3.2); LYMPHOCYTES % 10.8 % (18.0-39.1); MEAN CORPUSCULAR HEMOGLOBIN 32.4 pg (28-32); MEAN CORPUSCULAR HGB CONC 34.4 g/dL (31-35); MEAN CORPUSCULAR VOLUME 94.2 fL (81-99); MONOCYTES # (AUTO) 0.6 (0.2-0.8); MONOCYTES % 9.1 % (4.4-11.3); NEUTROPHILS # (AUTO) 5.1 (2.1-6.9); NEUTROPHILS % 79.6 % (38.7-80.0); PLATELET COUNT 131 x10e3/uL (140-360); RED BLOOD COUNT 2.25 x10e6/uL (4.3-5.7); RED CELL DISTRIBUTION WIDTH 17.8 % (11.7-14.4)
[2018-12-06 05:24] LABS: ALANINE AMINOTRANSFERASE 33 IU/L (0-55); ALBUMIN 2.5 g/dL (3.5-5.0); ALBUMIN/GLOBULIN RATIO 0.5 (0.8-2.0); ALKALINE PHOSPHATASE 79 IU/L (40-150); ANION GAP 9.1 mmol/L (8-16); BLOOD UREA NITROGEN 17 mg/dL (7-26); BUN/CREATININE RATIO 23 (6-25); CALCIUM 9.1 mg/dL (8.4-10.2); CARBON DIOXIDE 27 mmol/L (22-29); CHLORIDE 102 mmol/L (98-107); CREATININE, SERUM 0.73 mg/dL (0.72-1.25); EST GLOMERULAR FILTRATION RATE > 60 ML/MIN (60-); GLUCOSE 153 mg/dL (74-118); POTASSIUM 4.1 mmol/L (3.5-5.1); SODIUM 134 mmol/L (136-145)
--- NOTE | 2018-12-06 06:50 | NUR ---
Patient's Hemovac pulled out at the connection port when patient got up to use restroom. Found hemovac lying on the bathroom floor, tube still connected to patient. Patient has orders to removed hemovac postop day 1. Dressing C/D/I. Removed sutures and hemovac, pressure applied, pressure dressing applied, patient instructed to lay on back for at least an hour to continuously apply pressure. Patient verbalized understanding.
--- NOTE | 2018-12-06 07:52 | NUR ---
MET PATIENT, PATIENT ALERT AND ORIENTED TIMES 4, COMPLAINED OF SEVERE PAIN 04/07, PATIENT RECEIVED DILAUDID 1 MG IV, PATIENT SHOWS NO SIGNS OF DISTRESS.
[2018-12-06] MEDS: PANTOPRAZOLE SOD 40 MG TABEC PO SCH (08:33)
[2018-12-06] MEDS: PROPRANOLOL HCL 10 MG TAB PO SCH ×2 (08:34→17:17)
--- NOTE | 2018-12-06 08:51 | NUR ---
PATIENT HAS LAB REPORT 2ND BLOOD CULTURE CRITICAL RESULT: GRAM POSITIVE COCCI PAIR AND CHAINS, VERBAL REPORT GIVEN TO DR. REBECCA GRAF, NO NEW ORDERS.
[2018-12-06] MEDS ORDERED: TRAMADOL HCL 50 MG TAB PO PRN (09:00)
[2018-12-06 09:18] LABS: INR 1.68; PROTHROMBIN TIME 20.4 seconds (11.9-14.5)
[2018-12-06] MEDS: VANCOMYCIN 1GM/NS 250 ML 250 ML IV SCH (12:15)
--- NOTE | 2018-12-06 16:18 | NUR ---
Pt will benefit from a RW for home use. Pt has access to his mother's RW but pt's mother said she is currently using the RW. Addendum: 12/06/18 at 1620 by Reg Rodriguez PT Amended: Links added.
--- NOTE | 2018-12-06 19:10 | NUR ---
Received patient in bedside report. Patient is A&Ox3. Lungs clear. Bowel sounds active. Skin intact. R upper arm PICC line asymptomatic, intact, and patent. Patient reports pain at 8/10. Dressing to lumbar area is C/D/I. No redness noted around liyah. No drainage. Bed locked in lowest position, side rails upx2, call light in reach.
[2018-12-06 21:50] LABS: INR 1.76; PROTHROMBIN TIME 21.2 seconds (11.9-14.5)
--- NOTE | 2018-12-06 23:30 | NUR ---
Patient woke up to use restroom, disoriented. A&Ox3, but wanted to change shirts and attempted to put a pillow case on a shirt. Provided patient with a clean shirt from his bag. Patient stated he just wanted to get back to sleep and back to dreaming. Patient got back in bed, settled down, bed alarm on. Reminded patient to call before getting up again. Patient verbalized understanding.
[2018-12-07] VITALS (8 sets, daily range): BP systolic 102–131; BP diastolic 57–74
[2018-12-07] MEDS: PIPER-TAZ 3.375 GM 50 ML IV SCH ×4 (00:55→17:47)
[2018-12-07] MEDS: HYDROMORPHONE 2MG/ML 2 MG/ML ML IV PRN ×2 (04:33→09:04)
[2018-12-07 05:22] LABS: BASOPHILS % 0.1 % (0.0-1.0); EOSINOPHILS # (AUTO) 0.1 (0.0-0.4); EOSINOPHILS % 1.4 % (0.0-6.0); LYMPHOCYTES # (AUTO) 2.1 (1.0-3.2); MEAN CORPUSCULAR HEMOGLOBIN 32.7 pg (28-32); MEAN CORPUSCULAR HGB CONC 34.8 g/dL (31-35); MEAN CORPUSCULAR VOLUME 93.9 fL (81-99); MONOCYTES # (AUTO) 1.4 (0.2-0.8); MONOCYTES % 15.2 % (4.4-11.3); NEUTROPHILS # (AUTO) 5.4 (2.1-6.9); PLATELET COUNT 131 x10e3/uL (140-360); RED BLOOD COUNT 2.45 x10e6/uL (4.3-5.7); RED CELL DISTRIBUTION WIDTH 17.1 % (11.7-14.4)
--- NOTE | 2018-12-07 07:21 | NUR ---
MET PATIENT, PATIENT ALERT AND ORIENTED TO PERSON, PLACE, TIME, AND SITUATION, PATIENT STATED THAT HE DOES NOT NEED ANYTHING, PATIENT SHOWS NO SIGNS OF DISTRESS.
[2018-12-07] MEDS ORDERED: FENTANYL 25 MCG/HR PATCH TOP SCH (09:00)
[2018-12-07] MEDS ORDERED: PROPRANOLOL HCL 10 MG TAB PO SCH (09:00)
[2018-12-07] MEDS: TRAMADOL HCL 50 MG TAB PO SCH ×4 (09:00→17:47)
[2018-12-07] MEDS: PANTOPRAZOLE SOD 40 MG TABEC PO SCH (09:03)
[2018-12-07] MEDS: PROPRANOLOL HCL 10 MG TAB PO SCH ×2 (09:03→17:36)
[2018-12-07] MEDS ORDERED: PANTOPRAZOLE SOD 40 MG TABEC PO PRN (10:00)
[2018-12-07] MEDS: SPIRONOLACTONE 25 MG TAB PO SCH ×2 (12:15→17:34)
[2018-12-07] MEDS: FOLIC ACID 1 MG TAB PO SCH (12:15)
[2018-12-07] MEDS: LACTULOSE SYRUP 20 GM/30 ML UDC PO SCH ×2 (12:15→17:35)
[2018-12-07] MEDS: CYCLOBENZAPRINE HCL 10 MG TAB PO SCH ×2 (12:15→17:35)
[2018-12-07] MEDS: FUROSEMIDE 40 MG TAB PO SCH (12:15)
--- NOTE | 2018-12-07 12:37 | NUR ---
VANCOMYCIN TROUGH=4.4, CALLED DR. PELAYO'S ANSWERING SERVICE REGARDING VANCOMYCIN TROUGH FOR POSSIBLE ADJUSTMENT OF VANCOMYCIN DOSE.
[2018-12-07] MEDS: VANCOMYCIN 1GM/NS 250 ML 250 ML IV SCH (12:56)
--- NOTE | 2018-12-07 19:05 | NUR ---
Received patient in report at this time. Patient is resting in bed, A&Ox3. R upper arm PICC line asymptomatic, intact, and patent. No S&S of distress noted at this time. Bed locked in lowest position, side rails upx2, call light in reach.
[2018-12-07] MEDS: SENNOSIDES 8.6 MG TAB PO SCH (21:56)
[2018-12-08] VITALS (9 sets, daily range): BP systolic 91–116; BP diastolic 51–71
--- NOTE | 2018-12-08 00:05 | NUR ---
Patient woke up coughing and coughed up small amount of blood. patient states he had his esophagus banded about a month for bleeding, and he has only coughed up blood a few times since. Patient shows no signs of continued bleeding in esophagus at this time, no throat clearing, no extra swallowing. Instructed patient to call immediately if it happens again. Will continue to monitor closely.
[2018-12-08] MEDS: PIPER-TAZ 3.375 GM 50 ML IV SCH ×2 (00:19→06:13)
[2018-12-08] MEDS: TRAMADOL HCL 50 MG TAB PO SCH ×4 (00:19→17:31)
[2018-12-08] MEDS ORDERED: SODIUM CHLORIDE 0.9% 250ML 250 ML ONE (00:51)
[2018-12-08] MEDS: HYDROMORPHONE 2MG/ML 2 MG/ML ML ONE (08:01)
[2018-12-08] MEDS: HYDROMORPHONE 2MG/ML 2 MG/ML ML IV PRN ×2 (08:56→20:57)
[2018-12-08] MEDS: PANTOPRAZOLE SOD 40 MG TABEC PO SCH (08:56)
[2018-12-08] MEDS: SPIRONOLACTONE 25 MG TAB PO SCH ×2 (08:56→17:30)
[2018-12-08] MEDS: FOLIC ACID 1 MG TAB PO SCH (08:56)
[2018-12-08] MEDS: CYCLOBENZAPRINE HCL 10 MG TAB PO SCH ×2 (08:56→17:30)
[2018-12-08] MEDS: FUROSEMIDE 40 MG TAB PO SCH (08:57)
[2018-12-08] MEDS: PROPRANOLOL HCL 10 MG TAB PO SCH ×2 (08:57→17:40)
[2018-12-08] MEDS: LACTULOSE SYRUP 20 GM/30 ML UDC PO SCH ×2 (08:57→17:31)
--- NOTE | 2018-12-08 09:21 | NUR ---
SPOKE WITH FAMILY ABOUT SNF PLACEMENT. PT AND MOTHER CHOSE [facility]. SIGNED CHOICE FILED IN [facility].
--- NOTE | 2018-12-08 09:21 | NUR ---
EDUCATED ABOUT IMM SIGNED, FILED IN CHART WITH COPY LEFT AT BED SIDE FOR PT RECORDS.
[2018-12-08] MEDS: CEFTRIAXONE SOD 1 GM/NS 50 ML 50 ML IV SCH ×2 (09:59→20:56)
--- NOTE | 2018-12-08 16:44 | NUR ---
patient denies further bleeding or coughing since last reported overnight. good appetite. will continue to monitor and patient instructed to report if coughing with bleeding occurs again.
[2018-12-08] MEDS ORDERED: PROPRANOLOL HCL 10 MG TAB PO SCH (17:30)
[2018-12-08] MEDS: SENNOSIDES 8.6 MG TAB PO SCH (20:56)
--- NOTE | 2018-12-08 22:16 | NUR ---
Patient refused bed alarm. States it makes too much noise at night when he gets up. Importance and use of bed alarm explained. Patient still refused.
[2018-12-09] VITALS (8 sets, daily range): BP systolic 98–111; BP diastolic 55–70
[2018-12-09] MEDS: TRAMADOL HCL 50 MG TAB PO SCH ×5 (00:16→23:48)
[2018-12-09] MEDS: HYDROMORPHONE 2MG/ML 2 MG/ML ML IV PRN ×3 (03:39→22:25)
--- NOTE | 2018-12-09 06:07 | NUR ---
PICC line dressing changed.
[2018-12-09] MEDS: PANTOPRAZOLE SOD 40 MG TABEC PO SCH (07:30)
[2018-12-09] MEDS: SPIRONOLACTONE 25 MG TAB PO SCH ×2 (08:37→18:27)
[2018-12-09] MEDS: FOLIC ACID 1 MG TAB PO SCH (08:37)
[2018-12-09] MEDS: LACTULOSE SYRUP 20 GM/30 ML UDC PO SCH ×2 (08:37→18:28)
[2018-12-09] MEDS: CYCLOBENZAPRINE HCL 10 MG TAB PO SCH ×2 (08:37→18:28)
[2018-12-09] MEDS: PROPRANOLOL HCL 10 MG TAB PO SCH ×2 (08:38→18:28)
[2018-12-09] MEDS: CEFTRIAXONE SOD 1 GM/NS 50 ML 50 ML IV SCH ×2 (08:38→20:46)
[2018-12-09] MEDS ORDERED: FENTANYL 50 MCG/HR PATCH TOP SCH (09:00)
[2018-12-09] MEDS: FUROSEMIDE 40 MG TAB PO SCH (09:13)
--- NOTE | 2018-12-09 09:13 | NUR ---
Patient alert and responsive, in bed and medicated for pain, still c/o pains. States pain worse than prior to surgery, attending aware and orders in place for MRI for f/u post surgical. Call light within reach, Fentanyl patch ordered and placed at this time, will monitor.
[2018-12-09 09:25] LABS: BASOPHILS % 0.5 % (0.0-1.0); EOSINOPHILS # (AUTO) 0.2 (0.0-0.4); EOSINOPHILS % 2.4 % (0.0-6.0); HEMATOCRIT 22.8 % (38.2-49.6); LYMPHOCYTES # (AUTO) 2.3 (1.0-3.2); LYMPHOCYTES % 30.6 % (18.0-39.1); MEAN CORPUSCULAR HEMOGLOBIN 32.9 pg (28-32); MEAN CORPUSCULAR HGB CONC 35.1 g/dL (31-35); MEAN CORPUSCULAR VOLUME 93.8 fL (81-99); MONOCYTES # (AUTO) 0.9 (0.2-0.8); MONOCYTES % 12.1 % (4.4-11.3); NEUTROPHILS # (AUTO) 4.1 (2.1-6.9); PLATELET COUNT 120 x10e3/uL (140-360); RED BLOOD COUNT 2.43 x10e6/uL (4.3-5.7)
[2018-12-09 09:36] LABS: ANION GAP 7.8 mmol/L (8-16); BLOOD UREA NITROGEN 13 mg/dL (7-26); BUN/CREATININE RATIO 18 (6-25); CALCIUM 8.5 mg/dL (8.4-10.2); CARBON DIOXIDE 25 mmol/L (22-29); CHLORIDE 101 mmol/L (98-107); CREATININE, SERUM 0.71 mg/dL (0.72-1.25); EST GLOMERULAR FILTRATION RATE > 60 ML/MIN (60-); GLUCOSE 104 mg/dL (74-118); POTASSIUM 3.8 mmol/L (3.5-5.1); SODIUM 130 mmol/L (136-145)
--- NOTE | 2018-12-09 14:55 | NUR ---
Nutrition Screen Note RD Recommendation for Physician: - Continue Regular diet Plan of Care: RD following, monitoring for tolerance and adequacy Nutrition reason for involvement: LOS Primary Diagnose(s): compression fracture of lumbar vertebrae PMH: ETOH cirrhosis, no additional hx per chart Ht: 60.8 in Wt: 197.01 lb BMI: 37.5 kg/m2 IBW: [address] Assessment: (12/09) 53 YOM admitted for lumbar fracture, pt s/p L5-S1 fusion. Pt discussed during am rounds, SNF evaluation per CM and + spinal cultures per RN. Pt seen today for LOS. Pt reports good appetite and po intake currently and [employer]. Pt reports unknown wt loss, noted 240# last month per prior admit- questionable 43# wt loss in 1 month. Pt denies any GI distress. Chart reviewed. Labs and meds reviewed. Pt with no questions or concerns at this time. Will monitor and continue to follow. Current Diet: Regular Malnutrition Evaluation (12/09/18) The patient does not meet criteria for a specified degree of malnutrition at this time. Will re-evaluate at follow-up as appropriate. Diet Education Needs Assessment: Diet education not indicated. Nutrition Care Level: Low Signed: Thi Mitchell RD, LD, [facility]
--- NOTE | 2018-12-09 16:11 | NUR ---
PT APPROVED TO GO TO [facility] [id number] CALL REPORT TO [phone] SENTHIL MINER.
[2018-12-09] MEDS: SENNOSIDES 8.6 MG TAB PO SCH (20:46)
[2018-12-10 04:02] VITALS: BP 118/67
[2018-12-10] MEDS: HYDROMORPHONE 2MG/ML 2 MG/ML ML IV PRN ×2 (04:07→16:22)
[2018-12-10] MEDS: TRAMADOL HCL 50 MG TAB PO SCH ×2 (05:42→13:00)
[2018-12-10] MEDS: PANTOPRAZOLE SOD 40 MG TABEC PO SCH (07:30)
[2018-12-10] MEDS: CYCLOBENZAPRINE HCL 10 MG TAB PO SCH ×2 (09:01→16:16)
[2018-12-10] MEDS: PROPRANOLOL HCL 10 MG TAB PO SCH ×2 (09:01→16:17)
[2018-12-10] MEDS: CEFTRIAXONE SOD 1 GM/NS 50 ML 50 ML IV SCH (09:01)
[2018-12-10] MEDS: FUROSEMIDE 40 MG TAB PO SCH (09:01)
[2018-12-10] MEDS: SPIRONOLACTONE 25 MG TAB PO SCH ×2 (09:01→16:16)
[2018-12-10] MEDS: LACTULOSE SYRUP 20 GM/30 ML UDC PO SCH ×2 (09:01→16:17)
[2018-12-10] MEDS: FOLIC ACID 1 MG TAB PO SCH (09:01)
[2018-12-10 10:01] VITALS: BP 118/58
[2018-12-10 10:02] VITALS: BP 118/58
[2018-12-10 10:04] VITALS: BP 118/58
--- NOTE | 2018-12-10 10:19 | Diagnostic Imaging Report ---
Examination: MRI SPINE LUMBAR WITHOUT CONTRAST History: Persistent low back pain. Comparison studies: Bar spine MRI performed December 04, 2018. CT Lumbar spine 12/03/2018. Technique: Sagittal, coronal and axial T2 , sagittal T1 and STIR; axial spin density oblique. Findings: Number of lumbar vertebral bodies: Five. Alignment: Normal lordosis. No scoliosis. Soft tissues: No T2 hyperintense inflammatory changes. Posterior paraspinal soft tissues and muscles: No abnormality. Lower thoracic cord: Normal in signal and morphology. The tip of the conus is at T12. Cauda equina: No masses. No arachnoiditis. Vertebrae: No fractures or neoplasm. There is persistent edema within the L5 and S1 vertebrae and intervertebral disc. Degenerative changes: L1-L2: No abnormalities. L2-L3: Mild diffuse bulge. No foraminal or canal stenosis. L3-L4: Asymmetric to the right disc bulge and mild bilateral facet arthropathy result in mild right neural foraminal narrowing. No left foraminal or canal stenosis. L4-L5: Diffuse disc bulge and moderate bilateral facet arthropathy result in moderate right and mild left neural foraminal narrowing and moderate canal stenosis. L5-S1: New left laminectomy when compared to prior lumbar spine MRI performed December 04, 2018. Central disc protrusion remains unchanged and displaces the compressed thecal sac posteriorly. Severe bilateral neural foraminal narrowing due to the either a diffuse disc bulge and/or anterior and lateral epidural/extradural infection (abscess and/or phlegmon). Additional finding: Partially visualized hardware in the left ilium due to prior trauma. IMPRESSION: 1. New left laminectomy at L5-S1 when compared to prior lumbar spine MRI performed December 04, 2018. 2. 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 Contrast enhanced lumbar spine MRI may be obtained if there is concern for epidural or paraspinal abscess. 3. Unchanged severe bilateral neural foraminal narrowing at L5-S1 due to diffuse disc bulge and/or anterior and lateral epidural/extradural infection. Signed by: Dr. Sera Laboy M.D. on 12/10/2018 10:16 AM
--- NOTE | 2018-12-10 11:28 | NUR ---
Call to Dr. Weston's office to get clearance for discharge to SNF.
--- NOTE | 2018-12-10 12:40 | NUR ---
EDUCATED ABOUT IMM, SIGNED, FILED IN CHART, WITH COPY LEFT WITH FAMILY AT BEDSIDE.
[2018-12-10 12:53] VITALS: BP 116/62
--- NOTE | 2018-12-10 13:13 | NUR ---
Second call to Dr. Lepe's service and waiting for call back. He is in surgery
--- NOTE | 2018-12-10 16:24 | NUR ---
Patient OOB and ambulated, assisted to bathroom for shower, medicated for pain, VSS, reported MRI results to Dr. Lepe and ok from his standpoint to transfer patient to SNF with PICC line for abx up until 01/28/19 per infectious diseases.
--- NOTE | 2018-12-11 06:43 | Discharge Summary ---
PRIMARY CARE PHYSICIAN: Pinky Emmanuel MD. CONSULTANTS: 1. Dr. Meagan Bear. 2. Dr. Arsen Lepe. 3. Dr. Sushil Garcia. FINAL DIAGNOSES: 1. L5-S1 diskitis and epidural abscess, status post left L5-S1 laminectomy and medial facetectomy for evacuation of epidural abscess with resection of epidural phlegmon and evacuation of infected L5-S1 disk. 2. Baseline liver cirrhosis with chronic anemia, status post blood transfusion. 3. 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 4. Intractable lower back pain. SUMMARY: The patient is a [id number], who came in status post fall, thought he had compression fractures. MRI, however, showed that he has epidural abscess with diskitis. The patient subsequently underwent surgery on December 05, 2018, by Dr. Arsen Lepe after multiple FFP and vitamin K and blood transfusion given. The patient's coagulation was corrected and subsequently underwent surgery as mentioned above. The patient is stable. He is comfortable now. Pain controlled. He is getting physical therapy. Last blood work, WBC 7.5, hemoglobin 8, hematocrit 22.8, and platelets is 120. The patient's culture grew out Streptococcus viridans. It is alpha hemolytic type. Currently medication for him has been adjusted. Infectious Disease, Dr. Bear has now given the patient Rocephin 1 g q.12 hours. A left upper extremity PICC line has been placed. The patient will continue with IV antibiotic and physical therapy along with pain management at the skilled facility which has been approved by the patient's insurance coverage. The patient will discharge today. Medication reconciliation is done. Per instruction, the patient will follow up with Dr. Lepe and Dr. Bear. IV antibiotic duration will be per Dr. Bear. The patient may discharge today. MD LINCOLN Werner/NAUN /[id number]
[2018-12-16] MEDS ORDERED: FENTANYL1 EAC1 TD (09:34)
[2018-12-16] MEDS ORDERED: NORCO 5-325 TA1 EACH PO (09:34)
[2018-12-16] MEDS ORDERED: PANTOPRAZOLE SO40 MG PO (09:34)
[2018-12-16] MEDS ORDERED: SENNA LAX8.6 MG PO (09:34)
[2018-12-16] MEDS ORDERED: ONDANSETRON HCL PO (09:34)
[2018-12-16] MEDS ORDERED: CEFTRIAXONE1 GM IV (09:34)
[2018-12-16] MEDS ORDERED: LACTULOSE20 GM/30 M PO (09:34)
== END 2018-12-10 17:08 | DRG 854 ==
LOC: ER 13:51 → ERHOLD 18:35 → MED/SURG 18:38
PROVIDERS: ADMIT Internal Medicine; ATTEND Internal Medicine
PROC: 0ST40ZZ Resection of Lumbosacral Disc, Open Approach (ICD-10-PCS; principal; 2018-12-03)
PROC: 0QC00ZZ Extirpation of Matter from Lumbar Vertebra, Open Approach (ICD-10-PCS; 2018-12-03)
PROC: 0SB40ZZ Excision of Lumbosacral Disc, Open Approach (ICD-10-PCS; 2018-12-03)
PROC: 02HV33Z Insertion of Infusion Device into Superior Vena Cava, Percutaneous Approach (ICD-10-PCS; 2018-12-04)
DX: A41.9 Sepsis, unspecified organism (principal); M48.57XA Collapsed vertebra, not elsewhere classified, lumbosacral region, initial encounter for fracture; E87.1 Hypo-osmolality and hyponatremia; K70.30 Alcoholic cirrhosis of liver without ascites
CPT/HCPCS: 36415; 36569; 71045; 72020; 72131; 72148; 80048; 80053; 80202; 81001; 82140; 85025; 85610; 85651; 86140; 86850; 86900; 86920; 87040; 87071; 87075; 87086; 87186; 87205; 88304; 99284; J0696; J1100; J1885; J1940; J2001; J2250; J2270; J2405; J2543; J3370; J3430; J7030; J7050; P9016; P9017

== ENCOUNTER → 2018-12-17 | Day surgery (SDC) | payer OTHER ==
[~2018-12-17] MED LIST changes: +BENZONATATE100 MG PO; +CEFTRIAXONE1 GM IV; +CEPHALEXIN500 MG PO; +CHLORDIAZEPOXID25 MG PO; +CYCLOBENZAPRINE10 MG PO; +FENTANYL1 EAC1 TD; +FOLIC ACID1 MG PO; +FUROSEMIDE40 MG PO; +LACTULOSE20 GM/30 M PO; +METRONIDAZOLE500 MG PO; +MIDAZOLAM HCL 2 MG/2 ML VIAL ONE; +NORCO 5-325 TA1 EACH PO; +OMEPRAZOLE40 MG PO; +ONDANSETRON HCL PO; +PANTOPRAZOLE SO40 MG PO; +PROPOFOL IV EMULSION 10 MG/ML 20 ML VIAL ONE; +PROPRANOLOL HCL10 MG PO; +SENNA LAX8.6 MG PO; +SPIRONOLACTONE25 MG PO; +ULTRAM50 MG PO; +ZOFRAN4 MG PO
--- OUTSIDE RECORDS SUMMARY | 2018-12-17 10:17 | XMS REPORT | Summary of Care ---
Author Author Lula Toney Organization Unknown Address [facility] Phone Unavailable Care Team Providers Care Wire Inspector Name Role Phone Lula Toney Unavailable Unavailable MARY Rowe, JUAN A Unavailable Unavailable [facility] P.A.SOPHIA Unavailable Unavailable LEANDRO HANNA MD Unavailable Unavailable JACQUES Rowe, LEANDRO Unavailable Unavailable Juan A Hernandez MD Unavailable Unavailable Unavailable Unavailable Functional Status Name Dates Details Functional status health issues are not documented Status: Name Dates Details Cognitive status health issues are not documented Status: Problems Name Dates Details Abdominal wall mass (789.30, R22.2) Status: Active Chronic pain (338.29, G89.29) Status: Active Anemia (285.9, D64.9) Status: Active Pain, low back (724.2, M54.5) Status: Active Constipation, chronic (564.00, K59.09) Status: [...] P.A., SOPHIA * Start : 11-Nov-2018 Active Cyclobenzaprine HCl - 10 MG Oral Tablet TAKE 1 TABLET 3 TIMES DAILY NEEDED. * Quantity: 12 Refills: 1 JUAN A HERNANDEZ M.D. * Start : 01-Dec-2018 Active Capsaicin 0.1 % External Cream APPLY GENTLY TO AFFECTED AREA 3-4 TIMES DAILY. * Quantity: 1 Refills: 3 JUAN A HERNANDEZ M.D. * Start : 01-Dec-2018 Active 42.5 GM Tube Generlac 10 GM/15ML Oral Solution TAKE 15 ML DAILY as needed for constipation * Quantity: 1 Refills: 5 JUAN A HERNANDEZ M.D. * Start : 01-Dec-2018 Active 473 ML Bottle Allergies and Adverse Reactions Name Dates Details No Known Drug Allergies (Allergy) Status: Active Past Medical History Name Dates Details History of cirrhosis (V12.79, Z87.19) Status: Resolved Procedures Procedure Dates Details US Abdomen complete 43349 Date: 12-Nov-2018 CT Spine lumbar wo contrast [id number] Date: 08-Dec-2018 History of Pelvic surgery Completed Immunization Name Dates Details Immunizations not documented Family History Name Dates Details Family history of diabetes mellitus (V18.0, Z83.3) Status: Active Name Dates Details Family history of hypertension (V17.49, Z82.49) Status: Active Family history of High cholesterol (272.0, E78.00) Status: Active Name Dates Details Family history of hypertension (V17.49, Z82.49) Status: Active Family history of diabetes mellitus (V18.0, Z83.3) Status: Active Social History Name Dates Details - Status: Name Dates Details Never smoker Vital Signs Date Test Result Details [id number] Physical Findings 16 Status: Comments: PHQ-9 Adult Depression Screening Physical Findings 0 Status: Comments: Alcohol Screen - How many times in the past yr have you had 5 (for M) or 4 (for F) or 4 (for all > 65yrs) or more drinks in a day? [id number] BP Systolic 140 mm[Hg] Status: Comments: Location: [facility] [place]; Position: Sitting BP Diastolic 70 mm[Hg] Status: Comments: Location: E; Position: Sitting Height 69 in Status: Weight 197 lb Status: Body Mass Index Calculated 29.09 kg/m2 Status: Body Surface Area Calculated 2.05 m2 Status: Temperature 98.2 f Status: Comments: Method: Temporal Respiration Rate 16 /min Status: Heart Rate 87 /min Status: 15-Eqa-640589:49 BP Systolic 109 mm[Hg] Status: Comments: Location: [facility] [place]; Position: Sitting BP Diastolic 64 mm[Hg] Status: Comments: Location: [facility] [place]; Position: Sitting Height 69 in Status: Weight 226 lb Status: Body Mass Index Calculated 33.37 kg/m2 Status: Body Surface Area Calculated 2.18 m2 Status: Temperature 97 f Status: Comments: Method: Temporal Respiration Rate 16 /min Status: Heart Rate 73 /min Status: Results Date Description Value Details [id number] [QH] LIPID PANEL WITH REFLEX TO DIRECT [...] LDL-C. Stephen MAHMOOD et al. MARTÍNEZ. 2013;310(19): 0451-2870 (http:/ /education.InnoPad.ZoomInfo/faq/TGM842) CHOL/HDLC RATIO 10.4 {CALC} (Above high threshold) Range: <5.0 NON HDL CHOLESTEROL 113 {MG/DL__CAL} (Normal) Range: <130 Comments: For patients with diabetes plus 1 major ASCVD risk factor, treating to a non-HDL-C goal of <100 mg/dL (LDL-C of <70 mg/dL) is considered a therapeutic option. [id number] [QL] CMP W/EGFR GLUCOSE 89 mg/dl (Normal) Range: 65-99 Comments: Fasting reference interval UREA NITROGEN (BUN) 11 mg/dl (Normal) Range: 7-25 CREATININE 0.61 mg/dl (Below low threshold) Range: 0.70-1.33 Comments: For patients >49 years of age, the reference limitfor Creatinine is approximately 13% higher for peopleidentified as -Viet[place]. eGFR NON- 113 {ML/MIN/1.7} (Normal) Range: > [...] 10-35 ALT 34 u/l (Normal) Range: 9-46 [id number]-[id number] [[facility]] CBC (INCLUDES DIFF/PLT) WHITE BLOOD CELL [...] 7.5-12.5 ABSOLUTE NEUTROPHILS 3110 {cells/uL} (Normal) Range: 7144-7825 ABSOLUTE LYMPHOCYTES 1469 {cells/uL} (Normal) Range: 850-3900 ABSOLUTE MONOCYTES 670 {cells/uL} (Normal) Range: 200-950 ABSOLUTE EOSINOPHILS 59 {cells/uL} (Normal) Range: 15-500 ABSOLUTE BASOPHILS 92 {cells/uL} (Normal) Range: 0-200 NEUTROPHILS 57.6 % (Normal) LYMPHOCYTES 27.2 % (Normal) MONOCYTES 12.4 % (Normal) EOSINOPHILS 1.1 % (Normal) BASOPHILS 1.7 % (Normal) COMMENT(S) Comments: Review of peripheral smear confirmsautomated results. [id number] [[facility]] HEMOGLOBIN A1c Comments: REPORT COMMENT:FASTING:YES HEMOGLOBIN [...] diagnosis of diabetes in children. According to [place] Diabetes Association (ADA)guidelines, hemoglobin A1c <7.0% represents optimalcontrol in non- diabetic patients. Differentmetrics may apply to specific patient populations. Standards of Medical Care in Diabetes(ADA). [id number]:08 XRAY Spine lumbar AP lateral 41996 Spine lumbar AP lateral SEE NOTES Comments: [...] Appointment; JAYLON JACKSON M.D. On: 09-Feb-2019 8:00 Instructions Name Dates Details Instructions not documented Encounters Appointment; JUAN A HERNANDEZ M.D. Encounter Diagnosis: Problem not documented On: 11-Nov-2018 10:15 Appointment; JUAN A HERNANDEZ M.D. Encounter Diagnosis: Problem not documented On: 01-Dec-2018 10:45
[2018-12-17 11:56] LABS: INR 1.83; PROTHROMBIN TIME 21.8 seconds (11.9-14.5)
[2018-12-17 11:57] LABS: PARTIAL THROMBOPLASTIN TIME 47.6 seconds (23.8-35.5)
[2018-12-17 13:30] VITALS: BP 126/88
== END | disposition home or self-care (01) ==
LOC: OR 10:11
PROVIDERS: ATTEND Internal Medicine Gastroenterology
DX: K70.30 Alcoholic cirrhosis of liver without ascites (principal); I85.10 Secondary esophageal varices without bleeding; K29.70 Gastritis, unspecified, without bleeding; K76.6 Portal hypertension; K31.89 Other diseases of stomach and duodenum; K44.9 Diaphragmatic hernia without obstruction or gangrene; K21.9 Gastro-esophageal reflux disease without esophagitis; Z71.3 Dietary counseling and surveillance; D64.9 Anemia, unspecified; E66.9 Obesity, unspecified; I10 Essential (primary) hypertension; M54.9 Dorsalgia, unspecified; F32.9 Major depressive disorder, single episode, unspecified; Z68.31 Body mass index [BMI] 31.0-31.9, adult; Z87.891 Personal history of nicotine dependence; F10.21 Alcohol dependence, in remission
CPT/HCPCS: 36415; 43244; 85610; 85730; J2250; J2704; 43235; 43255

== ENCOUNTER → 2019-02-04 | Day surgery (SDC) | payer OTHER ==
[~2019-02-04] MED LIST changes: +FENTANYL CITRATE/PF 100MCG/2 ML INJ ONE; +LIDOCAINE HCL 2% LOCAL INJ 5 ML SDV VIAL INJ ONE; -PROPOFOL IV EMULSION 10 MG/ML 20 ML VIAL ONE; +PROPOFOL IV EMULSION 10 MG/ML 50 ML VIAL ONE
--- OUTSIDE RECORDS SUMMARY | 2019-02-04 09:03 | XMS REPORT | Continuity of Care Document ---
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 Phone [employer] Information Exchange Unavailable Unavailable Problems Problem Status Onset Date Classification Date Reported Comments Source Contusion of right hip Active Problem 12/10/2018 [facility] Compression fracture of lumbar vertebra Active Problem 12/10/2018 [facility] Medications Medication Details Route Status Patient Instructions Ordering Provider Order Date Source Benzonatate 100 Mg Capsule, 100 Mg Oral Three Times A Day as needed for Cough Active 12/04/2018 [facility] Cephalexin 500 Mg Capsule, 500 Mg Oral Three Times A Day Active 12/04/2018 [facility] Chlordiazepoxide Hcl 25 Mg Capsule, 10 Mg Oral Every 6 Hours for Alcohol Craving Active 12/04/2018 [facility] Metronidazole 500 Mg Tablet, 500 Mg Oral Three Times A Day Active 12/04/2018 [facility] Ondansetron Hcl (Zofran*) 4 Mg Tablet, 4 Mg Oral Every 6 Hours as needed for Nausea Active 12/04/2018 [facility] Hydrocodone Bit/Acetaminophen (Cook 10-325 Tablet) 1 Each Tablet, Active 11/07/2018 [facility] Cyclobenzaprine Hcl 10 Mg Tablet Three Times A Day Active [facility] Folic Acid 1 Mg Tablet Daily Active [facility] Furosemide 40 Mg Tablet Daily Active [facility] Omeprazole 40 Mg Capsule.dr Daily Active [facility] Propranolol Hcl 10 Mg Tablet Twice A Day Active [facility] Spironolactone 25 Mg Tablet Twice A Day Active [facility] Tramadol Hcl (Ultram) 50 Mg Tablet Every 6 Hours as needed for Mild Pain (1-3) Or Fever>100.8 Active [facility] Allergies, Adverse Reactions, Alerts No Known Medication Allergies Immunizations No Data Provided for This Section Results Order Name Results Value Reference Range Date Interpretation Comments Source Blood leukocytes automated count (number/volume) 7.58 4.8 - 10.8 12/09/2018 [facility] Blood erythrocytes automated count (number/volume) 2.43 4.3 - 5.7 12/09/2018 [facility] Blood hemoglobin measurement (moles/volume) 8.0 14.0 - 18.0 12/09/2018 [facility] Automated blood hematocrit (volume fraction) 22.8 38.2 - 49.6 12/09/2018 [facility] Automated erythrocyte mean corpuscular volume 93.8 81 - 99 12/09/2018 [facility] Automated erythrocyte mean corpuscular hemoglobin (mass per erythrocyte) 32.9 28 - 32 12/09/2018 [facility] Automated erythrocyte mean corpuscular hemoglobin concentration measurement (mass/volume) 35.1 31 - 35 12/09/2018 [facility] RDW BldCo-Rto 17.0 11.7 - 14.4 12/09/2018 [facility] Automated blood platelet count (count/volume) 120 140 - 360 12/09/2018 [facility] Automated blood segmented neutrophil count as percentage of total leukocytes 54.0 38.7 - 80.0 12/09/2018 [facility] Automated blood lymphocyte count as percentage ot total leukocytes 30.6 18.0 - 39.1 12/09/2018 [facility] Automated blood monocyte count as percentage of total leukocytes 12.1 4.4 - 11.3 12/09/2018 [facility] Automated blood eosinophil count as percentage of total leukocytes 2.4 0.0 - 6.0 12/09/2018 [facility] Automated blood basophil count as percentage of total leukocytes 0.5 0.0 - 1.0 12/09/2018 [facility] IM GRANULOCYTES % 0.4 0.0 - 1.0 12/09/2018 [facility] Automated blood neutrophil count 4.1 2.1 - 6.9 12/09/2018 [facility] Blood lymphocytes count (number/volume) 2.3 1.0 - 3.2 12/09/2018 [facility] Blood monocytes automated count (number/volume) 0.9 0.2 - 0.8 12/09/2018 [facility] Automated blood eosinophil count 0.2 0.0 - 0.4 12/09/2018 [facility] Automated blood basophil count (count/volume) 0.0 0.0 - 0.1 12/09/2018 [facility] Absolute Immature Granulocyte (auto 0.03 0 - 0.1 12/09/2018 [facility] Serum or plasma sodium measurement (moles/volume) 130 136 - 145 12/09/2018 [facility] Serum or plasma potassium measurement (moles/volume) 3.8 3.5 - 5.1 12/09/2018 [facility] Serum or plasma chloride measurement (moles/volume) 101 98 - 107 12/09/2018 [facility] Serum or plasma carbon dioxide, total measurement (moles/volume) 25 22 - 29 12/09/2018 [facility] Serum or plasma anion gap 7.8 8 - 16 12/09/2018 [facility] Serum or plasma urea nitrogen measurement (mass/volume) 13 7 - 26 12/09/2018 [facility] Serum or plasma creatinine measurement (mass/volume) 0.71 0.72 - 1.25 12/09/2018 [facility] Serum or plasma urea nitrogen/creatinine mass ratio 18 6 - 25 12/09/2018 [facility] Estimated glomerular filtration rate (GFR) determination > 60 60 12/09/2018 [facility] Glucose measurement 104 74 - 118 12/09/2018 [facility] Serum or plasma calcium measurement (mass/volume) 8.5 8.4 - 10.2 12/09/2018 [facility] Ammonia Ser-nc 108 31 - 123 12/09/2018 [facility] Serum or plasma trough vancomycin level at trough (mass/volume) 4.4 5.0 - 10.0 12/07/2018 [facility] Prothrombin time (PT) in platelet poor plasma by coagulation assay 21.2 11.9 - 14.5 12/06/2018 [facility] INR in Platelet poor plasma by Coagulation assay 1.76 12/06/2018 [facility] Serum or plasma total bilirubin measurement (mass/volume) 4.7 0.2 - 1.2 12/06/2018 [facility] Aspartate Amino Transf (AST/SGOT) 50 5 - 34 12/06/2018 [facility] Serum or plasma alanine aminotransferase measurement (enzymatic activity/volume) 33 0 - 55 12/06/2018 [facility] Serum or plasma protein measurement (mass/volume) 7.7 6.5 - 8.1 12/06/2018 [facility] Serum or plasma albumin measurement (mass/volume) 2.5 3.5 - 5.0 12/06/2018 [facility] Plasma globulin measurement (mass/volume) 5.2 2.3 - 3.5 12/06/2018 [facility] Serum or plasma albumin/globulin mass ratio 0.5 0.8 - 2.0 12/06/2018 [facility] Serum or plasma alkaline phosphatase measurement (enzymatic activity/volume) 79 40 - 150 12/06/2018 [facility] Bacteria identification in wound by culture Organism: STREPTOCOCCUS VIRIDANS 12/05/2018 [facility] Erythrocyte sedimentation rate by Westergren method 92 0 - 13 12/04/2018 [facility] Serum or plasma C reactive protein measurement (mass/volume) 15.3 0.0 - 4.9 12/04/2018 [facility] Blood culture Growth detected. Culture workup ordered. 12/04/2018 [facility] Bacterial blood culture Organism: STREPTOCOCCUS ANGINOSUS 12/04/2018 [facility] Urine color determination YELLOW YELLOW 12/03/2018 [facility] Urine clarity SL CLOUDY CLEAR 12/03/2018 [facility] Specific gravity of Urine by Test strip 1.010 1.010 - 1.025 12/03/2018 [facility] Urine pH measurement by automated test strip 7 5 - 7 12/03/2018 [facility] Urine leukocyte esterase detection by dipstick NEGATIVE NEGATIVE 12/03/2018 [facility] Urine nitrite detection NEGATIVE NEGATIVE 12/03/2018 [facility] Urine protein measurement by test strip (mass/volume) NEGATIVE NEGATIVE 12/03/2018 [facility] Urine glucose detection NEGATIVE NEGATIVE 12/03/2018 [facility] Urine ketones detection by automated test strip NEGATIVE NEGATIVE 12/03/2018 [facility] Urine urobilinogen measurement by test strip (mass/volume) 4 0.2 - 1 12/03/2018 [facility] Urine total bilirubin measurement (mass/volume) NEGATIVE NEGATIVE 12/03/2018 [facility] Urine erythrocytes detection TRACE NEGATIVE 12/03/2018 [facility] Automated urine sediment leukocyte count by microscopy (number/high power field) NONE 0 - 5 12/03/2018 [facility] Erythrocytes detection in urine sediment by light microscopy 6-10 0 - 5 12/03/2018 [facility] Bacteria detection in urine sediment by light microscopy FEW NONE 12/03/2018 [facility] Epithelial cells detection in urine sediment by light microscopy NONE NONE 12/03/2018 [facility] Differential Total Cells Counted 100 11/07/2018 [facility] Manual blood neutrophils/100 leukocytes 58 40 - 74 11/07/2018 [facility] Manual blood band neutrophils form/100 leukocytes 6 11/07/2018 [facility] Manual blood lymphocytes/100 leukocytes 18 19 - 48 11/07/2018 [facility] Manual blood monocytes/100 leukocytes 13 3.4 - 9.0 11/07/2018 [facility] Automated erythrocyte mean corpuscular hemoglobin (mass per erythrocyte) 29.3 28 - 32 11/07/2018 [facility] Manual basophil percentage 1 0 - 1.5 11/07/2018 [facility] Manual blood metamyelocytes/100 leukocytes 2 0 - 0 11/07/2018 [facility] Manual blood myelocytes/100 leukocytes 2 0 - 0 11/07/2018 [facility] Automated blood segmented neutrophil count as percentage of total leukocytes 62.3 38.7 - 80.0 11/07/2018 [facility] Blood platelets count by estimate (number/volume) SLIGHTLY DECREASED 11/07/2018 [facility] Platelet morphology FEW GIANT 11/07/2018 [facility] Blood hypochromia detection by light microscopy MODERATE 11/07/2018 [facility] Blood anisocytosis detection by light microscopy SLIGHT 11/07/2018 [facility] IM GRANULOCYTES % 3.9 0.0 - 1.0 11/07/2018 [facility] RBC morphology NORMAL 11/07/2018 [facility] Blood lymphocytes count (number/volume) 1.5 1.0 - 3.2 11/07/2018 [facility] Blood monocytes automated count (number/volume) 1.2 0.2 - 0.8 11/07/2018 [facility] Automated blood eosinophil count 0.1 0.0 - 0.4 11/07/2018 [facility] Automated blood basophil count (count/volume) 0.1 0.0 - 0.1 11/07/2018 [facility] Absolute Immature Granulocyte (auto 0.33 0 - 0.1 11/07/2018 [facility] Serum or plasma sodium measurement (moles/volume) 129 136 - 145 11/07/2018 [facility] Serum or plasma potassium measurement (moles/volume) 3.4 3.5 - 5.1 11/07/2018 [facility] Serum or plasma chloride measurement (moles/volume) 96 98 - 107 11/07/2018 [facility] Serum or plasma carbon dioxide, total measurement (moles/volume) 28 22 - 29 11/07/2018 [facility] Serum or plasma anion gap 8.4 8 - 16 11/07/2018 [facility] Serum or plasma urea nitrogen measurement (mass/volume) 9 7 - 26 11/07/2018 [facility] Serum or plasma creatinine measurement (mass/volume) 0.71 0.72 - 1.25 11/07/2018 [facility] Serum or plasma urea nitrogen/creatinine mass ratio 13 6 - 25 11/07/2018 [facility] Estimated glomerular filtration rate (GFR) determination > 60 60 11/07/2018 [facility] Glucose measurement 106 74 - 118 11/07/2018 [facility] Serum or plasma calcium measurement (mass/volume) 7.7 8.4 - 10.2 11/07/2018 [facility] Differential Total Cells Counted 100 11/06/2018 [facility] Manual blood neutrophils/100 leukocytes 61 40 - 74 11/06/2018 [facility] Manual blood lymphocytes/100 leukocytes 22 19 - 48 11/06/2018 [facility] Manual blood monocytes/100 leukocytes 6 3.4 - 9.0 11/06/2018 [facility] Manual blood eosinophil count as percentage of total leukocytes 3 0 - 7 11/06/2018 [facility] Manual blood metamyelocytes/100 leukocytes 1 0 - 0 11/06/2018 [facility] Blood lymphocytes variant count (number/volume) 7 11/06/2018 [facility] Blood platelets count by estimate (number/volume) SLIGHTLY DECREASED 11/06/2018 [facility] Platelet morphology NORMAL 11/06/2018 [facility] Blood hypochromia detection by light microscopy SLIGHT 11/06/2018 [facility] Blood anisocytosis detection by light microscopy SLIGHT 11/06/2018 [facility] RBC morphology ABNORMAL 11/06/2018 [facility] Serum or plasma total bilirubin measurement (mass/volume) 8.6 0.2 - 1.2 11/06/2018 [facility] Aspartate Amino Transf (AST/SGOT) 49 5 - 34 11/06/2018 [facility] Serum or plasma alanine aminotransferase measurement (enzymatic activity/volume) 20 0 - 55 11/06/2018 [facility] Serum or plasma protein measurement (mass/volume) 7.7 6.5 - 8.1 11/06/2018 [facility] Serum or plasma albumin measurement (mass/volume) 2.2 3.5 - 5.0 11/06/2018 [facility] Plasma globulin measurement (mass/volume) 5.5 2.3 - 3.5 11/06/2018 [facility] Serum or plasma albumin/globulin mass ratio 0.4 0.8 - 2.0 11/06/2018 [facility] Serum or plasma alkaline phosphatase measurement (enzymatic activity/volume) 72 40 - 150 11/06/2018 [facility] Manual blood eosinophil count as percentage of total leukocytes 3 0 - 7 11/06/2018 [facility] Blood lymphocytes variant count (number/volume) 7 11/06/2018 [facility] Blood target cells detection by light microscopy FEW 11/05/2018 [facility] Prothrombin time (PT) in platelet poor plasma by coagulation assay 22.2 11.9 - 14.5 11/05/2018 [facility] INR in Platelet poor plasma by Coagulation assay 1.87 11/05/2018 [facility] Ammonia Ser-mCnc 101 31 - 123 11/05/2018 [facility] Serum or plasma creatine kinase measurement (enzymatic activity/volume) 82 30 - 200 11/05/2018 [facility] Serum or plasma creatine kinase MB measurement (mass/volume) 1.10 0 - 5.0 11/05/2018 [facility] Troponin I measurement by highly sensitive enzyme immunoassay 0.056 0 - 0.300 11/05/2018 [facility] Blood target cells detection by light microscopy FEW 11/05/2018 [facility] Serum or plasma creatine kinase measurement (enzymatic activity/volume) 82 30 - 200 11/05/2018 [facility] Serum or plasma creatine kinase MB measurement (mass/volume) 1.10 0 - 5.0 11/05/2018 [facility] Troponin I measurement by highly sensitive enzyme immunoassay 0.056 0 - 0.300 11/05/2018 [facility] Activated partial thromboplastin time (aPTT) in platelet poor plasma bycoagulation assay 46.2 23.8 - 35.5 11/04/2018 [facility] Activated partial thromboplastin time (aPTT) in platelet poor plasma bycoagulation assay 46.2 23.8 - 35.5 11/04/2018 [facility] Urine color determination ANAT YELLOW 11/04/2018 [facility] Urine clarity HAZY CLEAR 11/04/2018 [facility] Specific gravity of Urine by Test strip 1.015 1.010 - 1.025 11/04/2018 [facility] Urine pH measurement by automated test strip 6 5 - 7 11/04/2018 [facility] Urine leukocyte esterase detection by dipstick 1+ NEGATIVE 11/04/2018 [facility] Urine nitrite detection POSITIVE NEGATIVE 11/04/2018 [facility] Urine protein measurement by test strip (mass/volume) NEGATIVE NEGATIVE 11/04/2018 [facility] Urine glucose detection NEGATIVE NEGATIVE 11/04/2018 [facility] Urine ketones detection by automated test strip NEGATIVE NEGATIVE 11/04/2018 [facility] Urine urobilinogen measurement by test strip (mass/volume) 8 0.2 - 1 11/04/2018 [facility] Urine total bilirubin measurement (mass/volume) 3+ NEGATIVE 11/04/2018 [facility] Urine erythrocytes detection 3+ NEGATIVE 11/04/2018 [facility] Automated urine sediment leukocyte count by microscopy (number/high power field) 6-10 0 - 5 11/04/2018 [facility] Erythrocytes detection in urine sediment by light microscopy 11-20 0 - 5 11/04/2018 [facility] Bacteria detection in urine sediment by light microscopy MANY NONE 11/04/2018 [facility] Epithelial cells detection in urine sediment by light microscopy MODERATE NONE 11/04/2018 [facility] Manual blood band neutrophils form/100 leukocytes 14 11/04/2018 [facility] Influenza virus A and B antigen identification by immunofluorescence NEGATIVE NEGATIVE 11/04/2018 [facility] Blood culture Growth detected. Culture workup ordered. 11/04/2018 [facility] Influenza virus A and B antigen identification by immunofluorescence NEGATIVE NEGATIVE 11/04/2018 [facility] Bacterial urine culture Urine Culture [facility] Pathology Reports No Data Provided for This Section Diagnostic Reports No Data Provided for This Section Consultation Notes No Data Provided for This Section Discharge Summaries No Data Provided for This Section History and Physicals No Data Provided for This Section Vital Signs No Data Provided for This Section Encounters Location Location Details Encounter Type Encounter Number Reason For Visit Attending Provider ADM Date DC Date Status Source Discharged Inpatient [id number] REBECCA GRAF MD 11/04/2018 11/07/2018 [facility] Discharged Inpatient [id number] REBECCA GRAF MD 12/03/2018 12/10/2018 [facility] Procedures Procedure Code Date Perfomer Comments Source Magnetic resonance imaging of lumbar spine without contrast [id number] 12/09/2018 [facility] Lumbar laminectomy [id number] 12/05/2018 [facility] Magnetic resonance imaging of lumbar spine without contrast [id number] 12/04/2018 [facility] Computed tomography of lumbar spine without contrast [id number] 12/03/2018 [facility] EGD with biopsy [id number] 11/05/2018 [facility] TRANSFUSE NONAUT RED BLOOD CELLS IN PERIPH VEIN, PERC [id number] 11/05/2018 [facility] OCCLUSION OF ESOPHAGEAL VEIN WITH EXTRALUMINAL DEVICE, ENDO [id number] 11/05/2018 [facility] X-ray of chest, two views [id number] 11/04/2018 [facility] Computed tomography of abdomen and pelvis with contrast [id number] 11/04/2018 [facility] TRANSFUSE NONAUT FRESH PLASMA IN PERIPH VEIN, PERC [id number] 11/04/2018 [facility] Assessment and Plan No Data Provided for This Section Plan of Care Plan of Care Date Source Discharge Date 12/10/18 5:08pm Disposition TRANSFER LONG TERM Prescriptions See Medication Section 12/10/2018 [facility] Discharge Date 11/07/18 10:17am Disposition HOME, SELF-CARE Instructions/Education Provided Back Pain Prescriptions See Medication Section Additional Instructions/Education activity as tolerated follow up with your primary doctor in 1-2 weeks call for an appointment. 11/07/2018 [facility] Social History Social History Date Source Smoking Status Start Date Stop Date Never Smoker 12/10/2018 [facility] Family History No Data Provided for This Section Advance Directives Order Name Results Value Date Source Advance Directives Advance Directives Directive Response Recorded Date/Time Does the patient have an advance directive? No 12/03/18 9:51pm If yes, is advance directive on file with [facility]? No 12/03/18 9:51pm If not on file with [facility] will patient provide a copy? No 12/03/18 9:51pm Do you have a Directive to Physician? No 12/03/18 5:06pm Do you have a Medical Power of Cable Armorer Operator? No 12/03/18 5:06pm Do you have an out of hospital Do Not Resuscitate Order? No 12/03/18 5:06pm Do you have any special needs we should be aware of? No 12/03/18 5:06pm Do you have a support person here with you today? Yes 12/03/18 5:06pm Did patient receive Notice of Privacy Practices? Yes 12/03/18 5:06pm Did patient receive patient rights and responsibilities? Yes 12/03/18 5:06pm 12/10/2018 [facility] Advance Directives Advance Directives Directive Response Recorded Date/Time Does the patient have an advance directive? No 11/05/18 8:02am Do you have a Directive to Physician? No 11/04/18 12:23pm Do you have a Medical Power of Cable Armorer Operator? No 11/04/18 12:23pm Do you have an out of hospital Do Not Resuscitate Order? No 11/04/18 12:23pm Do you have any special needs we should be aware of? No 11/04/18 12:23pm Do you have a support person here with you today? Yes 11/04/18 12:23pm Did patient receive Notice of Privacy Practices? Yes 11/04/18 12:23pm Did patient receive patient rights and responsibilities? Yes 11/04/18 12:23pm 11/07/2018 [facility] Functional Status No Data Provided for This Section
--- OUTSIDE RECORDS SUMMARY | 2019-02-04 09:04 | XMS REPORT | Summary of Care ---
Author Author JUAN A HERNANDEZ M.D. Organization Unknown Address Unknown Phone Unavailable Care Team Providers Care Biomedical Service Engineer Name Role Phone JUAN A HERNANDEZ M.D. Unavailable Unavailable [facility] Unavailable Unavailable LEANDRO HANNA MD Unavailable Unavailable LEANDRO HANNA M.D. Unavailable Juan A Hernandez MD Unavailable Unavailable Unavailable Unavailable Functional Status Name Dates Details Functional status health issues are not documented Status: Name Dates Details Cognitive status health issues are not documented Status: Problems Name Dates Details Abdominal wall mass (789.30, R22.2) Status: Active Chronic pain (338.29, G89.29) Status: Active Pain, low back (724.2, M54.5) Status: Active Constipation, chronic (564.00, K59.09) Status: Active Lumbosacral radiculopathy at L4 (724.4, M54.17) Status: Active Cirrhosis of liver with ascites, unspecified hepatic cirrhosis type (571.5, K74.60) Status: Active Anemia (285.9, D64.9) Status: Active Vertebral osteomyelitis (730.28, M46.20) Status: Active Osteomyelitis, periostitis, and other infections involving bone (730.90, M86.9) Status: Active Medications Name Dates Details chlordiazePOXIDE [...] Oral Capsule Delayed Release * Refills: 0 [facility] * Start : 11-Nov-2018 Active Folic Acid 1 MG Oral Tablet * Refills: 0 [facility] * Start : 11-Nov-2018 Active traMADol HCl - 50 MG Oral Tablet * Refills: 0 [facility] * Start : 11-Nov-2018 Active Ondansetron HCl - 4 MG Oral Tablet * Refills: 0 [facility] * Start : 11-Nov-2018 Active Cyclobenzaprine HCl [...] Start : 01-Dec-2018 Active 473 ML Bottle Pantoprazole Sodium 40 MG Oral Tablet Delayed Release TAKE 1 TABLET DAILY. * Refills: 0 Active Senna 8.6 MG Oral Tablet * Refills: 0 Active fentaNYL 50 MCG/HR Transdermal Patch 72 Hour APPLY 1 PATCH EVERY 3 DAYS * Quantity: 3 Refills: 0 JUAN A HERNANDEZ M.D. Start : 06-Jan-2019 Active Spironolactone 100 MG Oral Tablet TAKE 1 TABLET DAILY WITH BREAKFAST. * Quantity: 30 Refills: 1 JUAN A HERNANDEZ M.D. Start : 06-Jan-2019 Active Furosemide 40 MG Oral Tablet 1 po qam * Quantity: 30 Refills: 3 JUAN A HERNANDEZ M.D. Start : 06-Jan-2019 Active HYDROcodone-Acetaminophen 5-325 MG Oral Tablet TAKE 1 TABLET EVERY 4 TO 6 HOURS NEEDED FOR PAIN. * Quantity: 20 Refills: 0 JUAN A HERNANDEZ M.D. Start : 04-Feb-2019 Active Allergies and Adverse Reactions Name Dates Details No Known Drug Allergies (Allergy) Status: Active Past Medical History Name Dates Details History of cirrhosis (V12.79, Z87.19) Status: Resolved Procedures Procedure Dates Details [QLH] CMP W/EGFR Date: 14-Jan-2019 [QLH] AMMONIA (P) Date: 14-Jan-2019 [QLH] CBC (INCLUDES DIFF/PLT) Date: 14-Jan-2019 CT Spine lumbar wo contrast [id number] Date: 08-Dec-2018 History of Pelvic surgery Completed [...] smoker Vital Signs Date Test Result Details [id number] BP Systolic 128 mm[Hg] Status: Comments: Location: LUE; Position: Supine BP Diastolic 71 mm[Hg] Status: Comments: Location: LUE; Position: Supine Height 69 in Status: Weight 184.1875 lb Status: Body Mass Index Calculated 27.2 kg/m2 Status: Body Surface Area Calculated 1.99 m2 Status: Temperature 98.4 f Status: Comments: Method: Temporal Heart Rate 80 /min Status: Comments: Location: L Brachial Artery; Respiration Rate 16 /min Status: Comments: Quality: Normal Results Date Description Value Details :41 [QL] HEPATITIS PANEL HEPATITIS A AB, TOTAL REACTIVE (Abnormal) Range: NON-REACTIVE HEPATITIS B SURFACE ANTIBODY QL REACTIVE (Abnormal) Range: NON-REACTIVE HEPATITIS B SURFACE ANTIGEN NON-REACTIVE (Normal) Range: NON-REACTIVE HEPATITIS B CORE AB TOTAL NON-REACTIVE (Normal) Range: NON-REACTIVE HEPATITIS C ANTIBODY NON-REACTIVE (Normal) Range: NON-REACTIVE SIGNAL TO CUT-OFF 0.29 (Normal) Range: <1.00 Comments: HCV antibody was non-reactive. There is no laboratory evidence of HCV infection. In most cases, no further action is required. However,if recent HCV exposure is suspected, a test for HCV RNA(test code 30586) is suggested. For additional information please refer tohttp://education.[employer]o/faq/NED80m3(This link is being provided for informational/educational purposes only.) [id number] [QL] CMP W/EGFR GLUCOSE 128 mg/dl (Normal) Range: 65-139 Comments: Non-fasting reference interval UREA NITROGEN (BUN) 18 mg/dl (Normal) Range: 7-25 CREATININE 0.76 mg/dl (Normal) Range: 0.70-1.33 Comments: For patients >49 years of age, the reference limitfor Creatinine is approximately 13% higher for peopleidentified as -Y[place]i. eGFR NON- 103 {ML/MIN/1.7} (Normal) Range: > OR=60 eGFR 120 {ML/MIN/1.7} (Normal) Range: > OR=60 BUN/CREATININE RATIO NOT APPLICABLE {CALC} Range: 6-22 SODIUM 130 mmol/L (Below low threshold) Range: 135-146 POTASSIUM 4.1 mmol/L (Normal) Range: 3.5-5.3 CHLORIDE 98 mmol/L (Normal) Range: 98-110 CARBON DIOXIDE 24 mmol/L (Normal) Range: 20-32 CALCIUM 8.7 mg/dl (Normal) Range: 8.6-10.3 PROTEIN, TOTAL 8.0 g/dl (Normal) Range: 6.1-8.1 ALBUMIN 3.0 g/dl (Below low threshold) Range: 3.6-5.1 GLOBULIN 5.0 {G/DL__CALC} (Above high threshold) Range: 1.9-3.7 ALBUMIN/GLOBULIN RATIO 0.6 {CALC} (Below low threshold) Range: 1.0-2.5 BILIRUBIN, TOTAL 5.3 mg/dl (Above high threshold) Range: 0.2-1.2 ALKALINE PHSPHATASE 129 u/l (Above high threshold) Range: 40-115 AST 50 u/l (Above high threshold) Range: 10-35 ALT 21 u/l (Normal) Range: 9-46 [id number] [[facility]] ALPHA-FETOPROTEIN (AFP) AND AFP-L3 AFP 6.2 ng/ml (Above high threshold) Range: 1.6-4.5 AFP-L3 10.8 % (Above high threshold) Range: 0.5-9.9 Comments: The micro-total analysis system ([facility]) employs microchipcapillary electrophoresis to quantitatively measure AFP andAFP-L3% by immunochemical techniques. The assay principleinvolves DNA-coupled antibodies and dye labeled antibodies,which react with proteins in liquid phase within themicrochannels. Both analytes are quantified usinglaser-induced fluorescence. Instrument and associatedreagents are supplied by [employer] [place], [place], [place]. Patients with elevated AFP-L3% values (>=10%) have beenshown to have an increased risk of developing hepatocellularcarcinoma (HCC). In a selected group of patients, the riskof developing HCC was 48.8% with an elevated AFP-L3% and was7.0% with a negative AFP-L3% result. Limitations of Procedure: 1. The AFP-L3% value is not calculated when the AFP-I4elqqnaoqmjoqz is below 0.3 ng/mL. In such cases the AFP-L3%result field will indicate "NO VALUE DETERMINED" 2.Heterophilic antibodies in human serum can react with theimmunoglobulins included in the assay components causinginterference with in vitro immunoassays. Samples frompatients routinely exposed to animals or animal serumproducts can demonstrate this type of interference and canpotentially cause an anomalous result. The [employer] uTAS Systemhas been formulated to minimize the risk of theinterference; however, potential interactions between raresera and ingredients can occur. 3. For diagnostic purposes,the results obtained from this assay should always be usedand interpreted in conjunction with clinical examination,patient medical history, and other findings. 4. Pregnancycan cause high values of AFP-L3% and AFP is notinterpretable in females. 5. AFP producing tumorsother than HCC can show high values of AFP-L3% and AFP. 6.Samples from patients having acute hepatitis and fulminanthepatitis can show high values of AFP-L3% and AFP. 7. It isrecommended that this assay be used in conjunction withimaging studies for clinical diagnosis. 8. Liver diseasescaused by other etiologies such as alcoholic liver disease,hemachromatosis, Daniel's disease, autoimmune hepatitis andsteatohepatisis have not been studied with the assay. 9. Theassay is linear for AFP concentration of 0.3 to 1000 ng/mL.10. Valu es obtained with different assay methods or kitscannot be used interchangeably. [id number] [[facility]] CBC (INCLUDES DIFF/PLT) WHITE BLOOD CELL COUNT 6.1 {Thousand/u} (Normal) Range: 3.8-10.8 RED BLOOD CELL COUNT 2.76 {Million/uL} (Below low threshold) Range: 4.20-5.80 HEMAGLOBIN 9.2 g/dl (Below low threshold) Range: 13.2-17.1 HEMATOCRIT 24.2 % (Below low threshold) Range: 38.5-50.0 MCV 87.7 fL (Normal) Range: 80.0-100.0 MCH 33.3 pg (Above high threshold) Range: 27.0-33.0 MCHC 38.0 g/dl (Above high threshold) Range: 32.0-36.0 Comments: Verified by repeat analysis. RDW 12.7 % (Normal) Range: 11.0-15.0 PLATELET COUNT 111 {Thousand/u} (Below low threshold) Range: 140-400 MPV 9.2 fL (Normal) Range: 7.5-12.5 ABSOLUTE NEUTROPHILS 3233 {cells/uL} (Normal) Range: 0915-6029 ABSOLUTE LYMPHOCYTES 1897 {cells/uL} (Normal) Range: 850-3900 ABSOLUTE MONOCYTES 811 {cells/uL} (Normal) Range: 200-950 ABSOLUTE EOSINOPHILS 110 {cells/uL} (Normal) Range: 15-500 ABSOLUTE BASOPHILS 49 {cells/uL} (Normal) Range: 0-200 NEUTROPHILS 53 % (Normal) LYMPHOCYTES 31.1 % (Normal) MONOCYTES 13.3 % (Normal) EOSINOPHILS 1.8 % (Normal) BASOPHILS 0.8 % (Normal) [id number] [[facility]] AMMONIA (P) Comments: REPORT COMMENT:FASTING:NO AMMONIA (P) 115 umol/L (Above high threshold) Range: < OR=72 [id number] US Liver [id number] Liver US SEE NOTES Comments: EXAM: US ABDOMEN LIMITEDDATE: 01/15/2019 8:35 CDTINDICATION: - K74.60 Unspecified cirrhosis of liverADDITIONAL INFORMATION: None.COMPARISON: None.TECHNIQUE: Multiplanar grayscale and color Doppler ultrasound of the rightupper quadrant.FINDINGS: The IVC and aorta are unremarkable.Liver:Craniocaudal length: 18.4 cm.Echogenicity: Increased with heterogeneitySurface nodularity: MildMass (size and location): None.Portal vein: Normal.Bile ducts: Common bile duct diameter: 0.6 cm. Intrahepatic ducts: Normal.Gallbladder: The transverse diameter of the gallbladder measures up to 5.3 cm Gallstones: None. Gallbladder sludge: Positive Gallbladder wall: 0.2 cm. Pericholecystic fluid: None. Sonographic Wylie sign: Absent.Pancreas: Head and uncinate process: Normal. Body and tail: Not seen.Right kidn ey:Hydronephrosis: None.Size: 11.1 x 4.5 x 5.7 cm.Echogenicity: Normal.Mass/Stone/Cyst (size and location): None.Ascites: None.IMPRESSION:1. Hepatomegaly with cirrhotic appearing liver. Underlying hepatosteatosiscannot be entirely excluded.2. Prominent gallbladder size with sludge. Negative Wylie sign.--Read by: Judd Araujo MDDictated Date/time: 01/15/19 09:45Electronically Signed by: Judd Araujo MD 01/15/1909:50FINAL REPORT Plan of Care Name Dates Details Planned Observations Planned Goals not documented Planned Encounters Appointment; JAYLON JACKSON M.D. On: 09-Feb-2019 8:00 Appointment; JUAN A HERNANDEZ M.D. On: 10-Feb-2019 10:00 Interventions Provided Medication Changes* HYDROcodone-Acetaminophen 5-325 MG Oral Tablet - Start Instructions Name Dates Details Instructions not documented Encounters Appointment; JUAN A HERNANDEZ M.D. Encounter Diagnosis: Problem not documented On: 11-Nov-2018 10:15 Appointment; JUAN A HERNANDEZ M.D. Encounter Diagnosis: Problem not documented On: 01-Dec-2018 10:45 Appointment; JUAN A HERNANDEZ M.D. Encounter Diagnosis: Problem not documented On: 06-Jan-2019 14:30
[2019-02-04 10:06] LABS: INR 2.05; PROTHROMBIN TIME 23.8 seconds (11.9-14.5)
[2019-02-04 10:12] LABS: PARTIAL THROMBOPLASTIN TIME 102.9 seconds (23.8-35.5)
[2019-02-04 11:50] VITALS: BP 118/66
== END | disposition home or self-care (01) ==
LOC: OR 08:59
PROVIDERS: ATTEND Internal Medicine Gastroenterology
DX: K70.30 Alcoholic cirrhosis of liver without ascites (principal); I85.10 Secondary esophageal varices without bleeding; K76.6 Portal hypertension; K44.9 Diaphragmatic hernia without obstruction or gangrene; K31.89 Other diseases of stomach and duodenum; Z71.3 Dietary counseling and surveillance; K73.9 Chronic hepatitis, unspecified; D64.9 Anemia, unspecified; E66.9 Obesity, unspecified; G89.29 Other chronic pain; I10 Essential (primary) hypertension; Z68.31 Body mass index [BMI] 31.0-31.9, adult; Z87.891 Personal history of nicotine dependence
CPT/HCPCS: 36415; 43235; 85610; 85730; J2001; J2250; J2704; 43255; J3010

== ENCOUNTER 2019-04-01 08:28 | Observation (INO) | payer OTHER ==
[~2019-04-01] VITALS: Ht 172.7 cm; Wt 97.5 kg
[~2019-04-01 08:28] MED LIST changes: -FENTANYL CITRATE/PF 100MCG/2 ML INJ ONE; -LIDOCAINE HCL 2% LOCAL INJ 5 ML SDV VIAL INJ ONE; -MIDAZOLAM HCL 2 MG/2 ML VIAL ONE; -PROPOFOL IV EMULSION 10 MG/ML 50 ML VIAL ONE
--- OUTSIDE RECORDS SUMMARY | 2019-04-01 08:31 | XMS REPORT | Summary of Care ---
Author JUAN A Mason M.D. Unknown Address Unknown Phone Unavailable Care Team Providers Care Maintenance Technician 3Rd Shift Name Role Phone JUAN A HERNANDEZ M.D. Unavailable Unavailable MANUEL Rowe, JAYLON Unavailable Unavailable LEANDRO HANNA MD Unavailable Unavailable LEANDRO HANNA M.D. Unavailable Unavailable Juan A Hernandez MD Unavailable Unavailable MANUEL PEREZ, JAYLON Unavailable Unavailable Unavailable Unavailable Functional Status Name Dates Details Functional status health issues are not documented Status: Name Dates Details Cognitive status health issues are not documented Status: Problems Name Dates Details Abdominal wall mass (789.30, R22.2) Status: Active Chronic pain (338.29, G89.29) Status: Active Pain, low back (724.2, M54.5) Status: Active Constipation, chronic (564.00, K59.09) Status: Active Anemia (285.9, D64.9) Status: Active Osteomyelitis, periostitis, and other infections involving bone (730.90, M86.9) Status: Active Hypertension (401.9, I10) Status: Active Liver disease (573.9, K76.9) Status: Active Vertebral osteomyelitis (730.28, M46.20) Status: Active Iron deficiency (280.9, E61.1) Status: Active Controlled substance agreement signed (V58.69, Z79.899) Status: Active Lumbar spondylosis (721.3, M47.816) Status: Active Chronic narcotic use (305.50, F11.90) Status: Active Lumbosacral radiculopathy at L4 (724.4, M54.17) Status: Active Cirrhosis of liver with ascites, unspecified hepatic cirrhosis type (571.5, K74.60) Status: Active Chronic back pain (724.5, M54.9) Status: Active Esophageal varices (456.1, I85.00) Status: Active Medications Name Dates Details Propranolol HCl - 10 MG Oral Tablet BID Quantity: 60 JUAN A HERNANDEZ M.D. * Start : 11-Nov-2018 Active Omeprazole 40 MG Oral Capsule Delayed Release TAKE 1 CAPSULE BY MOUTH EVERY MORNING * Quantity: 30 Refills: 0 JUAN A HERNANDEZ M.D. * Start : 11-Nov-2018 Active Ondansetron HCl - 4 MG Oral Tablet TAKE 1 TAB EVERY 8 HOURS NEEDED FOR NAUSEA * Quantity: 60 Refills: 1 JUAN A HERNANDEZ M.D. * Start : 11-Nov-2018 Active Cyclobenzaprine HCl [...] Start : 01-Dec-2018 Active 473 ML Bottle Spironolactone 100 MG Oral Tablet TAKE 1 TABLET DAILY WITH BREAKFAST. * Quantity: 30 Refills: 3 JUAN A HERNANDEZ M.D. * Start : 06-Jan-2019 Active Furosemide 40 MG Oral Tablet 1 po qam * Quantity: 30 Refills: 3 JUAN A HERNANDEZ M.D. Start : 06-Jan-2019 Active HYDROcodone-Acetaminophen 5-325 MG Oral Tablet TAKE 1 TABLET EVERY 8 HOURS NEEDED FOR PAIN. * Quantity: 90 Refills: 0 JAYLON JACKSON M.D. * Start : 04-Feb-2019 Active fentaNYL 50 MCG/HR Transdermal Patch 72 Hour APPLY 1 PATCH EVERY 3 DAYS * Quantity: 10 Refills: 0 JAYLON JACKSON M.D. * Start : 05-Feb-2019 Active Folic Acid 1 MG Oral Tablet TAKE 1 TABLET DAILY. * Quantity: 90 Refills: 1 JUAN A HERNANDEZ M.D. Start : 10-Feb-2019 Active FerrouSul 325 (65 Fe) MG Oral Tablet * Refills: 0 Active Cephalexin 500 MG Oral Tablet take one BID * Refills: 0 Active Allergies and Adverse Reactions Name Dates Details No Known Drug Allergies (Allergy) Status: Active Past Medical History Name Dates Details History of cirrhosis (V12.79, Z87.19) Status: Resolved Procedures Procedure Dates Details [Q] IRON, TIBC AND FERRITIN PANEL Date: 10-Feb-2019 [QLH] CBC (INCLUDES DIFF/PLT) Date: 10-Feb-2019 [QLH] CMP W/EGFR Date: 11-Feb-2019 [Q] IRON, TIBC AND FERRITIN PANEL Date: 11-Feb-2019 [QLH] AMMONIA (P) Date: 11-Feb-2019 [QLH] CBC (INCLUDES DIFF/PLT) Date: 11-Feb-2019 [QLH] PROTHROMBIN W/INR + PARTIAL THROMBOPLASTIN TIMES Date: 10-Mar-2019 [Q] DRUG ABUSE PANEL 9-50 Date: 10-Mar-2019 [QLH] URINALYSIS, COMPLETE W/REFLEX TO CULTURE Date: 24-Mar-2019 MRI Spine lumbar wo contrast [id number] Date: 10-Mar-2019 History of Pelvic surgery Completed History of Hernia repair Completed Immunization Name Dates Details Tdap (Boostrix) on: 26-Nov-2018 Family History Name Dates Details Family history [...] smoker Vital Signs Date Test Result Details [id number] BP Systolic 133 mm[Hg] Status: Comments: Location: LUE; Position: Sitting BP Diastolic 74 mm[Hg] Status: Comments: Location: LUE; Position: Sitting Height 69 in Status: Weight 198.9 lb Status: Body Mass Index Calculated 29.37 kg/m2 Status: Body Surface Area Calculated 2.06 m2 Status: Temperature 97.7 f Status: Comments: Method: Temporal Heart Rate 92 /min Status: Comments: Location: L Radial; Respiration Rate 16 /min Status: Comments: Quality: Normal 73-[id number]:52 BP Systolic 93 mm[Hg] Status: Comments: Location: LUE; Position: Sitting BP Diastolic 51 mm[Hg] Status: Comments: Location: LUE; Position: Sitting Height 69 in Status: Weight 197 lb Status: Body Mass Index Calculated 29.09 kg/m2 Status: Body Surface Area Calculated 2.05 m2 Status: Heart Rate 73 /min Status: Results Date Description Value Details [id number] [[facility]] CMP W/EGFR GLUCOSE 102 mg/dl (Normal) Range: 65-139 Comments: Non-fasting reference interval UREA NITROGEN (BUN) 15 mg/dl (Normal) Range: 7-25 CREATININE 0.72 mg/dl (Normal) Range: 0.70-1.33 Comments: For patients >49 years of age, the reference limitfor Creatinine is approximately 13% higher for peopleidentified as -[place]. eGFR NON- 106 {ML/MIN/1.7} (Normal) Range: > OR=60 eGFR 123 {ML/MIN/1.7} (Normal) Range: > OR=60 BUN/CREATININE RATIO NOT APPLICABLE {CALC} Range: 6-22 SODIUM 132 mmol/L (Below low threshold) Range: 135-146 POTASSIUM 4.5 mmol/L (Normal) Range: 3.5-5.3 CHLORIDE 99 mmol/L (Normal) Range: 98-110 CARBON DIOXIDE 25 mmol/L (Normal) Range: 20-32 CALCIUM 8.5 mg/dl (Below low threshold) Range: 8.6-10.3 PROTEIN, TOTAL 7.2 g/dl (Normal) Range: 6.1-8.1 ALBUMIN 2.8 g/dl (Below low threshold) Range: 3.6-5.1 GLOBULIN 4.4 {G/DL__CALC} (Above high threshold) Range: 1.9-3.7 ALBUMIN/GLOBULIN RATIO 0.6 {CALC} (Below low threshold) Range: 1.0-2.5 BILIRUBIN, TOTAL 6.9 mg/dl (Above high threshold) Range: 0.2-1.2 ALKALINE PHSPHATASE 129 u/l (Above high threshold) Range: 40-115 AST 60 u/l (Above high threshold) Range: 10-35 ALT 31 u/l (Normal) Range: 9-46 [id number] [[facility]] CBC (INCLUDES DIFF/PLT) WHITE BLOOD CELL COUNT 5.3 {Thousand/u} (Normal) Range: 3.8-10.8 RED BLOOD CELL COUNT 2.66 {Million/uL} (Below low threshold) Range: 4.20-5.80 HEMAGLOBIN 8.9 g/dl (Below low threshold) Range: 13.2-17.1 HEMATOCRIT 23.7 % (Below low threshold) Range: 38.5-50.0 MCV 89.1 fL (Normal) Range: 80.0-100.0 MCH 33.5 pg (Above high threshold) Range: 27.0-33.0 MCHC 37.6 g/dl (Above high threshold) Range: 32.0-36.0 Comments: Verified by repeat analysis. RDW 13.0 % (Normal) Range: 11.0-15.0 PLATELET COUNT 92 {Thousand/u} (Below low threshold) Range: 140-400 MPV 10.2 fL (Normal) Range: 7.5-12.5 ABSOLUTE NEUTROPHILS 3026 {cells/uL} (Normal) Range: 9436-3097 ABSOLUTE LYMPHOCYTES 1442 {cells/uL} (Normal) Range: 850-3900 ABSOLUTE MONOCYTES 615 {cells/uL} (Normal) Range: 200-950 ABSOLUTE EOSINOPHILS 159 {cells/uL} (Normal) Range: 15-500 ABSOLUTE BASOPHILS 58 {cells/uL} (Normal) Range: 0-200 NEUTROPHILS 57.1 % (Normal) LYMPHOCYTES 27.2 % (Normal) MONOCYTES 11.6 % (Normal) EOSINOPHILS 3.0 % (Normal) BASOPHILS 1.1 % (Normal) [id number] [Q] PLATELET ESTIMATION Comments: REPORT COMMENT:FASTING:NO PLATELET ESTIMATION DECREASED (Abnormal) Range: ADEQUATE Plan of Care Name Dates Details Planned Observations Planned Goals not documented Planned Encounters Appointment; JAYLON JACKSON M.D. On: 21-Apr-2019 13:45 Appointment; JUAN A HERNANDEZ M.D. On: 02-Jun-2019 10:00 Interventions Provided Medication Changes* Capsaicin 0.1 % External Cream - Start * Omeprazole 40 MG Oral Capsule Delayed Release - Renew * Ondansetron HCl - 4 MG Oral Tablet - Renew * Propranolol HCl - 10 MG Oral Tablet - Renew Labs/Procedures/Imaging* [QLH] URINALYSIS, COMPLETE W/REFLEX TO CULTURE; To Be Done: 24 Mar 2019 Plan* 1. UA today due to chronic decreased frequency of urination * 2. Looks good today clinically - f/u after Hep appt.. in late April during early May * 3. advocate exercise and weight loss - gradually * 4. review hep provider labs after next visit * 5. Increase ondansetron slightly BID - RTC if increase in nausea * 6. labs reviewed and parameters of cirrhosis are stable Instructions Name Dates Details Instructions not documented Encounters Appointment; JUAN A HERNANDEZ M.D. Encounter Diagnosis: Problem not documented On: 11-Nov-2018 10:15 Appointment; JUAN A HERNANDEZ M.D. Encounter Diagnosis: Problem not documented On: 01-Dec-2018 10:45 Appointment; JUAN A HERNANDEZ M.D. Encounter Diagnosis: Problem not documented On: 06-Jan-2019 14:30 Appointment; JAYLON JACKSON M.D. Encounter Diagnosis: Problem not documented On: 09-Feb-2019 8:00 Appointment; JUAN A HERNANDEZ M.D. Encounter Diagnosis: Problem not documented On: 10-Feb-2019 10:00 Appointment; JAYLON JACKSON M.D. Encounter Diagnosis: Problem not documented On: 10-Mar-2019 8:30 Appointment; JUAN A HERNANDEZ M.D. Encounter Diagnosis: Problem not documented On: 24-Mar-2019 10:00
--- OUTSIDE RECORDS SUMMARY | 2019-04-01 08:31 | XMS REPORT | Continuity of Care Document ---
Author Author [place] Address Unknown Phone Unavailable Care Team Providers Care Brass Roller Name Role Phone [employer] Information Exchange Unavailable Unavailable Problems Problem Status Onset Date Classification Date Reported Comments Source Contusion of right hip Active Problem 12/10/2018 [facility] Compression fracture of lumbar vertebra Active Problem 12/10/2018 [facility] Medications Medication Details Route Status Patient Instructions Ordering Provider Order Date Source Benzonatate 100 Mg Capsule, 100 Mg Oral Three Times A Day as needed for Cough Active 12/04/2018 [facility] Cephalexin 500 Mg Capsule, 500 Mg Oral Three Times A Day Active 12/04/2018 [facility] Chlordiazepoxide Hcl 25 Mg Capsule, 10 Mg Oral Every 6 Hours for Alcohol Craving Active 12/04/2018 [facility] Metronidazole 500 Mg Tablet, 500 Mg Oral Three Times A Day Active 12/04/2018 [facility] Ondansetron Hcl (Zofran*) 4 Mg Tablet, 4 Mg Oral Every 6 Hours as needed for Nausea Active 12/04/2018 [facility] Hydrocodone Bit/Acetaminophen ([place] 10-325 Tablet) 1 Each Tablet, Active 11/07/2018 [facility] Cyclobenzaprine Hcl 10 Mg Tablet Three Times A Day Active [facility] Folic Acid 1 Mg Tablet Daily Active [facility] Furosemide 40 Mg Tablet Daily Active [facility] Omeprazole 40 Mg Capsule.dr Daily Active [facility] Propranolol Hcl 10 Mg Tablet Twice A Day Active [facility] Spironolactone 25 Mg Tablet Twice A Day Active [facility] Tramadol Hcl (Ultram) 50 Mg Tablet Every 6 Hours as needed for Mild Pain (1-3) Or Fever>100.8 Active [facility] Allergies, Adverse Reactions, Alerts No Known Medication Allergies Immunizations No Data Provided for This Section Results Order Name Results Value Reference Range Date Interpretation Comments Source Blood leukocytes automated count (number/volume) 7.58 4.8 - 10.8 12/09/2018 [facility] Blood erythrocytes automated count (number/volume) 2.43 4.3 - 5.7 12/09/2018 [facility] Blood hemoglobin measurement (moles/volume) 8.0 14.0 - 18.0 12/09/2018 [facility] Automated blood hematocrit (volume fraction) 22.8 38.2 - 49.6 12/09/2018 [facility] Automated erythrocyte mean corpuscular volume 93.8 81 - 99 12/09/2018 [facility] Automated erythrocyte mean corpuscular hemoglobin (mass per erythrocyte) 32.9 28 - 32 12/09/2018 [facility] Automated erythrocyte mean corpuscular hemoglobin concentration measurement (mass/volume) 35.1 31 - 35 12/09/2018 [facility] RDW BldCo-Rto 17.0 11.7 - 14.4 12/09/2018 [facility] Automated blood platelet count (count/volume) 120 140 - 360 12/09/2018 [facility] Automated blood segmented neutrophil count as percentage of total leukocytes 54.0 38.7 - 80.0 12/09/2018 [facility] Automated blood lymphocyte count as percentage ot total leukocytes 30.6 18.0 - 39.1 12/09/2018 [facility] Automated blood monocyte count as percentage of total leukocytes 12.1 4.4 - 11.3 12/09/2018 [facility] Automated blood eosinophil count as percentage of total leukocytes 2.4 0.0 - 6.0 12/09/2018 [facility] Automated blood basophil count as percentage of total leukocytes 0.5 0.0 - 1.0 12/09/2018 [facility] IM GRANULOCYTES % 0.4 0.0 - 1.0 12/09/2018 [facility] Automated blood neutrophil count 4.1 2.1 - 6.9 12/09/2018 [facility] Blood lymphocytes count (number/volume) 2.3 1.0 - 3.2 12/09/2018 [facility] Blood monocytes automated count (number/volume) 0.9 0.2 - 0.8 12/09/2018 [facility] Automated blood eosinophil count 0.2 0.0 - 0.4 12/09/2018 [facility] Automated blood basophil count (count/volume) 0.0 0.0 - 0.1 12/09/2018 [facility] Absolute Immature Granulocyte (auto 0.03 0 - 0.1 12/09/2018 [facility] Serum or plasma sodium measurement (moles/volume) 130 136 - 145 12/09/2018 [facility] Serum or plasma potassium measurement (moles/volume) 3.8 3.5 - 5.1 12/09/2018 [facility] Serum or plasma chloride measurement (moles/volume) 101 98 - 107 12/09/2018 [facility] Serum or plasma carbon dioxide, total measurement (moles/volume) 25 22 - 29 12/09/2018 [facility] Serum or plasma anion gap 7.8 8 - 16 12/09/2018 [facility] Serum or plasma urea nitrogen measurement (mass/volume) 13 7 - 26 12/09/2018 [facility] Serum or plasma creatinine measurement (mass/volume) 0.71 0.72 - 1.25 12/09/2018 [facility] Serum or plasma urea nitrogen/creatinine mass ratio 18 6 - 25 12/09/2018 [facility] Estimated glomerular filtration rate (GFR) determination > 60 60 12/09/2018 [facility] Glucose measurement 104 74 - 118 12/09/2018 [facility] Serum or plasma calcium measurement (mass/volume) 8.5 8.4 - 10.2 12/09/2018 [facility] Ammonia Ser-nc 108 31 - 123 12/09/2018 [facility] Serum or plasma trough vancomycin level at trough (mass/volume) 4.4 5.0 - 10.0 12/07/2018 [facility] Prothrombin time (PT) in platelet poor plasma by coagulation assay 21.2 11.9 - 14.5 12/06/2018 [facility] INR in Platelet poor plasma by Coagulation assay 1.76 12/06/2018 [facility] Serum or plasma total bilirubin measurement (mass/volume) 4.7 0.2 - 1.2 12/06/2018 [facility] Aspartate Amino Transf (AST/SGOT) 50 5 - 34 12/06/2018 [facility] Serum or plasma alanine aminotransferase measurement (enzymatic activity/volume) 33 0 - 55 12/06/2018 [facility] Serum or plasma protein measurement (mass/volume) 7.7 6.5 - 8.1 12/06/2018 [facility] Serum or plasma albumin measurement (mass/volume) 2.5 3.5 - 5.0 12/06/2018 [facility] Plasma globulin measurement (mass/volume) 5.2 2.3 - 3.5 12/06/2018 [facility] Serum or plasma albumin/globulin mass ratio 0.5 0.8 - 2.0 12/06/2018 [facility] Serum or plasma alkaline phosphatase measurement (enzymatic activity/volume) 79 40 - 150 12/06/2018 [facility] Bacteria identification in wound by culture Organism: STREPTOCOCCUS VIRIDANS 12/05/2018 [facility] Erythrocyte sedimentation rate by Westergren method 92 0 - 13 12/04/2018 [facility] Serum or plasma C reactive protein measurement (mass/volume) 15.3 0.0 - 4.9 12/04/2018 [facility] Blood culture Growth detected. Culture workup ordered. 12/04/2018 [facility] Bacterial blood culture Organism: STREPTOCOCCUS ANGINOSUS 12/04/2018 [facility] Urine color determination YELLOW YELLOW 12/03/2018 [facility] Urine clarity SL CLOUDY CLEAR 12/03/2018 [facility] Specific gravity of Urine by Test strip 1.010 1.010 - 1.025 12/03/2018 [facility] Urine pH measurement by automated test strip 7 5 - 7 12/03/2018 [facility] Urine leukocyte esterase detection by dipstick NEGATIVE NEGATIVE 12/03/2018 [facility] Urine nitrite detection NEGATIVE NEGATIVE 12/03/2018 [facility] Urine protein measurement by test strip (mass/volume) NEGATIVE NEGATIVE 12/03/2018 [facility] Urine glucose detection NEGATIVE NEGATIVE 12/03/2018 [facility] Urine ketones detection by automated test strip NEGATIVE NEGATIVE 12/03/2018 [facility] Urine urobilinogen measurement by test strip (mass/volume) 4 0.2 - 1 12/03/2018 [facility] Urine total bilirubin measurement (mass/volume) NEGATIVE NEGATIVE 12/03/2018 [facility] Urine erythrocytes detection TRACE NEGATIVE 12/03/2018 [facility] Automated urine sediment leukocyte count by microscopy (number/high power field) NONE 0 - 5 12/03/2018 [facility] Erythrocytes detection in urine sediment by light microscopy 6-10 0 - 5 12/03/2018 [facility] Bacteria detection in urine sediment by light microscopy FEW NONE 12/03/2018 [facility] Epithelial cells detection in urine sediment by light microscopy NONE NONE 12/03/2018 [facility] Differential Total Cells Counted 100 11/07/2018 [facility] Manual blood neutrophils/100 leukocytes 58 40 - 74 11/07/2018 [facility] Manual blood band neutrophils form/100 leukocytes 6 11/07/2018 [facility] Manual blood lymphocytes/100 leukocytes 18 19 - 48 11/07/2018 [facility] Manual blood monocytes/100 leukocytes 13 3.4 - 9.0 11/07/2018 [facility] Automated erythrocyte mean corpuscular hemoglobin (mass per erythrocyte) 29.3 28 - 32 11/07/2018 [facility] Manual basophil percentage 1 0 - 1.5 11/07/2018 [facility] Manual blood metamyelocytes/100 leukocytes 2 0 - 0 11/07/2018 [facility] Manual blood myelocytes/100 leukocytes 2 0 - 0 11/07/2018 [facility] Automated blood segmented neutrophil count as percentage of total leukocytes 62.3 38.7 - 80.0 11/07/2018 [facility] Blood platelets count by estimate (number/volume) SLIGHTLY DECREASED 11/07/2018 [facility] Platelet morphology FEW GIANT 11/07/2018 [facility] Blood hypochromia detection by light microscopy MODERATE 11/07/2018 [facility] Blood anisocytosis detection by light microscopy SLIGHT 11/07/2018 [facility] IM GRANULOCYTES % 3.9 0.0 - 1.0 11/07/2018 [facility] RBC morphology NORMAL 11/07/2018 [facility] Blood lymphocytes count (number/volume) 1.5 1.0 - 3.2 11/07/2018 [facility] Blood monocytes automated count (number/volume) 1.2 0.2 - 0.8 11/07/2018 [facility] Automated blood eosinophil count 0.1 0.0 - 0.4 11/07/2018 [facility] Automated blood basophil count (count/volume) 0.1 0.0 - 0.1 11/07/2018 [facility] Absolute Immature Granulocyte (auto 0.33 0 - 0.1 11/07/2018 [facility] Serum or plasma sodium measurement (moles/volume) 129 136 - 145 11/07/2018 [facility] Serum or plasma potassium measurement (moles/volume) 3.4 3.5 - 5.1 11/07/2018 [facility] Serum or plasma chloride measurement (moles/volume) 96 98 - 107 11/07/2018 [facility] Serum or plasma carbon dioxide, total measurement (moles/volume) 28 22 - 29 11/07/2018 [facility] Serum or plasma anion gap 8.4 8 - 16 11/07/2018 [facility] Serum or plasma urea nitrogen measurement (mass/volume) 9 7 - 26 11/07/2018 [facility] Serum or plasma creatinine measurement (mass/volume) 0.71 0.72 - 1.25 11/07/2018 [facility] Serum or plasma urea nitrogen/creatinine mass ratio 13 6 - 25 11/07/2018 [facility] Estimated glomerular filtration rate (GFR) determination > 60 60 11/07/2018 [facility] Glucose measurement 106 74 - 118 11/07/2018 [facility] Serum or plasma calcium measurement (mass/volume) 7.7 8.4 - 10.2 11/07/2018 [facility] Differential Total Cells Counted 100 11/06/2018 [facility] Manual blood neutrophils/100 leukocytes 61 40 - 74 11/06/2018 [facility] Manual blood lymphocytes/100 leukocytes 22 19 - 48 11/06/2018 [facility] Manual blood monocytes/100 leukocytes 6 3.4 - 9.0 11/06/2018 [facility] Manual blood eosinophil count as percentage of total leukocytes 3 0 - 7 11/06/2018 [facility] Manual blood metamyelocytes/100 leukocytes 1 0 - 0 11/06/2018 [facility] Blood lymphocytes variant count (number/volume) 7 11/06/2018 [facility] Blood platelets count by estimate (number/volume) SLIGHTLY DECREASED 11/06/2018 [facility] Platelet morphology NORMAL 11/06/2018 [facility] Blood hypochromia detection by light microscopy SLIGHT 11/06/2018 [facility] Blood anisocytosis detection by light microscopy SLIGHT 11/06/2018 [facility] RBC morphology ABNORMAL 11/06/2018 [facility] Serum or plasma total bilirubin measurement (mass/volume) 8.6 0.2 - 1.2 11/06/2018 [facility] Aspartate Amino Transf (AST/SGOT) 49 5 - 34 11/06/2018 [facility] Serum or plasma alanine aminotransferase measurement (enzymatic activity/volume) 20 0 - 55 11/06/2018 [facility] Serum or plasma protein measurement (mass/volume) 7.7 6.5 - 8.1 11/06/2018 [facility] Serum or plasma albumin measurement (mass/volume) 2.2 3.5 - 5.0 11/06/2018 [facility] Plasma globulin measurement (mass/volume) 5.5 2.3 - 3.5 11/06/2018 [facility] Serum or plasma albumin/globulin mass ratio 0.4 0.8 - 2.0 11/06/2018 [facility] Serum or plasma alkaline phosphatase measurement (enzymatic activity/volume) 72 40 - 150 11/06/2018 [facility] Manual blood eosinophil count as percentage of total leukocytes 3 0 - 7 11/06/2018 [facility] Blood lymphocytes variant count (number/volume) 7 11/06/2018 [facility] Blood target cells detection by light microscopy FEW 11/05/2018 [facility] Prothrombin time (PT) in platelet poor plasma by coagulation assay 22.2 11.9 - 14.5 11/05/2018 [facility] INR in Platelet poor plasma by Coagulation assay 1.87 11/05/2018 [facility] Ammonia Ser-mCnc 101 31 - 123 11/05/2018 [facility] Serum or plasma creatine kinase measurement (enzymatic activity/volume) 82 30 - 200 11/05/2018 [facility] Serum or plasma creatine kinase MB measurement (mass/volume) 1.10 0 - 5.0 11/05/2018 [facility] Troponin I measurement by highly sensitive enzyme immunoassay 0.056 0 - 0.300 11/05/2018 [facility] Blood target cells detection by light microscopy FEW 11/05/2018 [facility] Serum or plasma creatine kinase measurement (enzymatic activity/volume) 82 30 - 200 11/05/2018 [facility] Serum or plasma creatine kinase MB measurement (mass/volume) 1.10 0 - 5.0 11/05/2018 [facility] Troponin I measurement by highly sensitive enzyme immunoassay 0.056 0 - 0.300 11/05/2018 [facility] Activated partial thromboplastin time (aPTT) in platelet poor plasma bycoagulation assay 46.2 23.8 - 35.5 11/04/2018 [facility] Activated partial thromboplastin time (aPTT) in platelet poor plasma bycoagulation assay 46.2 23.8 - 35.5 11/04/2018 [facility] Urine color determination ANAT YELLOW 11/04/2018 [facility] Urine clarity HAZY CLEAR 11/04/2018 [facility] Specific gravity of Urine by Test strip 1.015 1.010 - 1.025 11/04/2018 [facility] Urine pH measurement by automated test strip 6 5 - 7 11/04/2018 [facility] Urine leukocyte esterase detection by dipstick 1+ NEGATIVE 11/04/2018 [facility] Urine nitrite detection POSITIVE NEGATIVE 11/04/2018 [facility] Urine protein measurement by test strip (mass/volume) NEGATIVE NEGATIVE 11/04/2018 [facility] Urine glucose detection NEGATIVE NEGATIVE 11/04/2018 [facility] Urine ketones detection by automated test strip NEGATIVE NEGATIVE 11/04/2018 [facility] Urine urobilinogen measurement by test strip (mass/volume) 8 0.2 - 1 11/04/2018 [facility] Urine total bilirubin measurement (mass/volume) 3+ NEGATIVE 11/04/2018 [facility] Urine erythrocytes detection 3+ NEGATIVE 11/04/2018 [facility] Automated urine sediment leukocyte count by microscopy (number/high power field) 6-10 0 - 5 11/04/2018 [facility] Erythrocytes detection in urine sediment by light microscopy 11-20 0 - 5 11/04/2018 [facility] Bacteria detection in urine sediment by light microscopy MANY NONE 11/04/2018 [facility] Epithelial cells detection in urine sediment by light microscopy MODERATE NONE 11/04/2018 [facility] Manual blood band neutrophils form/100 leukocytes 14 11/04/2018 [facility] Influenza virus A and B antigen identification by immunofluorescence NEGATIVE NEGATIVE 11/04/2018 [facility] Blood culture Growth detected. Culture workup ordered. 11/04/2018 [facility] Influenza virus A and B antigen identification by immunofluorescence NEGATIVE NEGATIVE 11/04/2018 [facility] Bacterial urine culture Urine Culture [facility] Pathology Reports No Data Provided for This [...] Date DC Date Status Source Discharged Inpatient [id number] REBECCA GRAF MD 11/04/2018 11/07/2018 [facility] Discharged Inpatient [id number] REBECCA GRAF MD 12/03/2018 12/10/2018 [facility] Procedures Procedure Code Date Perfomer Comments Source Magnetic resonance imaging of lumbar spine without contrast [id number] 12/09/2018 [facility] Lumbar laminectomy [id number] 12/05/2018 PAKZABAN [facility] Computed tomography of lumbar spine without contrast [id number] 12/03/2018 [facility] EGD with biopsy [id number] 11/05/2018 OESTHER [facility] TRANSFUSE NONAUT RED BLOOD CELLS IN PERIPH VEIN, PERC [id number] 11/05/2018 [facility] OCCLUSION OF ESOPHAGEAL VEIN WITH EXTRALUMINAL DEVICE, ENDO [id number] 11/05/2018 JERMAIEN [facility] X-ray of chest, two views [id number] 11/04/2018 [facility] Computed tomography of abdomen and pelvis with contrast [id number] 11/04/2018 [facility] TRANSFUSE NONAUT FRESH PLASMA IN PERIPH VEIN, PERC [id number] 11/04/2018 [facility] Assessment and Plan No Data Provided for This Section Plan of Care Plan of Care Date Source Discharge Date 12/10/18 5:08pm Disposition TRANSFER RETIREMENT Prescriptions See Medication Section 12/10/2018 [facility] Discharge Date 11/07/18 10:17am Disposition HOME, SELF-CARE Instructions/Education Provided Back Pain Prescriptions See Medication Section Additional Instructions/Education activity as tolerated follow up with your primary doctor in 1-2 weeks call for an appointment. 11/07/2018 [facility] Social History Social History Date Source Smoking Status Start Date Stop Date Never Smoker 12/10/2018 [facility] Family History No Data Provided for This Section Advance Directives Order Name Results Value Date Source Advance Directives Advance Directives Directive Response Recorded Date/Time Does the patient have an advance directive? No 12/03/18 9:51pm If yes, is advance directive on file with [facility]? No 12/03/18 9:51pm If not on file with [facility] will patient provide a copy? No 12/03/18 9:51pm Do you have a Directive to Physician? No 12/03/18 5:06pm Do you have a Medical Power of Reservation Agent? No 12/03/18 5:06pm Do you have an [...] rights and responsibilities? Yes 12/03/18 5:06pm 12/10/2018 [facility] Advance Directives Advance Directives Directive Response Recorded Date/Time Does the patient have an advance directive? No 11/05/18 8:02am Do you have a Directive to Physician? No 11/04/18 12:23pm Do you have a Medical Power of Reservation Agent? No 11/04/18 12:23pm Do you have an [...] rights and responsibilities? Yes 11/04/18 12:23pm 11/07/2018 [facility] Functional Status No Data Provided for This Section
[2019-04-01] MEDS ORDERED: SODIUM CHLORIDE 0.9% 1000ML 1,000 ML IV STA (08:54)
[2019-04-01] MEDS ORDERED: SODIUM CHLORIDE 0.9% 1000ML 1,000 ML IV SCH (08:59)
[2019-04-01] MEDS ORDERED: ONDANSETRON HCL INJ 2MG/ML 2ML 2 MG/ML VIAL IV PRN (09:00)
[2019-04-01 09:16] LABS: BASOPHILS % 0.5 % (0.0-1.0); EOSINOPHILS # (AUTO) 0.2 (0.0-0.4); EOSINOPHILS % 3.3 % (0.0-6.0); HEMATOCRIT 22.4 % (38.2-49.6); HEMOGLOBIN 7.8 g/dL (14.0-18.0); LYMPHOCYTES % 36.1 % (18.0-39.1); MEAN CORPUSCULAR HEMOGLOBIN 34.5 pg (28-32); MEAN CORPUSCULAR HGB CONC 34.8 g/dL (31-35); MEAN CORPUSCULAR VOLUME 99.1 fL (81-99); MONOCYTES # (AUTO) 0.6 (0.2-0.8); MONOCYTES % 11.7 % (4.4-11.3); NEUTROPHILS # (AUTO) 2.6 (2.1-6.9); NEUTROPHILS % 47.9 % (38.7-80.0); PLATELET COUNT 90 x10e3/uL (140-360); RED BLOOD COUNT 2.26 x10e6/uL (4.3-5.7); RED CELL DISTRIBUTION WIDTH 15.7 % (11.7-14.4)
--- NOTE | 2019-04-01 09:27 | Diagnostic Imaging Report ---
EXAM: CHEST SINGLE (PORTABLE) DATE: 04/01/2019 8:54 AM INDICATION: Hernia, abdominal pain COMPARISON: 12/04/2018 FINDINGS: Previously visualized right upper extremity PICC line is no longer present. The trachea is midline. The lungs are symmetrically expanded without evidence for large focal consolidation, pneumothorax, or significant pleural effusion. The cardiomediastinal silhouette is stable in appearance. No acute osseous abnormalities identified. IMPRESSION: No acute cardio pulmonary process identified. Signed by: Dr. Ishaan Cochran MD on 04/01/2019 9:24 AM
[2019-04-01] MEDS ORDERED: PROTONIX 200MG/SODIUM CHLORIDE 0.9% 250 ML BAG IV SCH (09:30)
[2019-04-01] MEDS ORDERED: PANTOPRAZOLE 40 MG 10ML VIAL IV ONE ×2 (09:30→10:00)
[2019-04-01] MEDS ORDERED: CEFTRIAXONE SOD 1 GM/NS 50 ML 50 ML IV ONE (09:30)
[2019-04-01] MEDS ORDERED: ONDANSETRON HCL INJ 2MG/ML 2ML 2 MG/ML VIAL IV ONE (09:30)
[2019-04-01 09:43] LABS: INR 2.16; PROTHROMBIN TIME 24.8 seconds (11.9-14.5)
[2019-04-01 09:44] LABS: PARTIAL THROMBOPLASTIN TIME 51.7 seconds (23.8-35.5)
--- OUTSIDE RECORDS SUMMARY | 2019-04-01 09:50 | XMS REPORT | Continuity of Care Document ---
Author Author [employer] Address Unknown Phone Unavailable Care Team Providers Care Computer Equipment Installer Name Role Phone [employer] Information Exchange Unavailable Unavailable Problems Problem Status Onset Date Classification Date Reported Comments Source Contusion of right hip Active Problem 12/10/2018 [facility] Compression fracture of lumbar vertebra Active Problem 12/10/2018 [facility] Medications Medication Details Route Status Patient Instructions Ordering Provider Order Date Source Benzonatate 100 Mg Capsule, 100 Mg Oral Three Times A Day as needed for Cough Active 12/04/2018 [facility] Cephalexin 500 Mg Capsule, 500 Mg Oral Three Times A Day Active 12/04/2018 [facility] Chlordiazepoxide Hcl 25 Mg Capsule, 10 Mg Oral Every 6 Hours for Alcohol Craving Active 12/04/2018 [facility] Metronidazole 500 Mg Tablet, 500 Mg Oral Three Times A Day Active 12/04/2018 [facility] Ondansetron Hcl (Zofran*) 4 Mg Tablet, 4 Mg Oral Every 6 Hours as needed for Nausea Active 12/04/2018 [facility] Hydrocodone Bit/Acetaminophen (Lyndon 10-325 Tablet) 1 Each Tablet, Active 11/07/2018 [facility] Cyclobenzaprine Hcl 10 Mg Tablet Three Times A Day Active [facility] Folic Acid 1 Mg Tablet Daily Active [facility] Furosemide 40 Mg Tablet Daily Active [facility] Omeprazole 40 Mg Capsule.dr Daily Active [facility] Propranolol Hcl 10 Mg Tablet Twice A Day Active [facility] Spironolactone 25 Mg Tablet Twice A Day Active [facility] Tramadol Hcl (Ultram) 50 Mg Tablet Every 6 Hours as needed for Mild Pain (1-3) Or Fever>100.8 Active [facility] Allergies, Adverse Reactions, Alerts No Known Medication Allergies Immunizations No Data Provided for This Section Results Order Name Results Value Reference Range Date Interpretation Comments Source Blood leukocytes automated count (number/volume) 7.58 4.8 - 10.8 12/09/2018 [facility] Blood erythrocytes automated count (number/volume) 2.43 4.3 - 5.7 12/09/2018 [facility] Blood hemoglobin measurement (moles/volume) 8.0 14.0 - 18.0 12/09/2018 [facility] Automated blood hematocrit (volume fraction) 22.8 38.2 - 49.6 12/09/2018 [facility] Automated erythrocyte mean corpuscular volume 93.8 81 - 99 12/09/2018 [facility] Automated erythrocyte mean corpuscular hemoglobin (mass per erythrocyte) 32.9 28 - 32 12/09/2018 [facility] Automated erythrocyte mean corpuscular hemoglobin concentration measurement (mass/volume) 35.1 31 - 35 12/09/2018 [facility] RDW BldCo-Rto 17.0 11.7 - 14.4 12/09/2018 [facility] Automated blood platelet count (count/volume) 120 140 - 360 12/09/2018 [facility] Automated blood segmented neutrophil count as percentage of total leukocytes 54.0 38.7 - 80.0 12/09/2018 [facility] Automated blood lymphocyte count as percentage ot total leukocytes 30.6 18.0 - 39.1 12/09/2018 [facility] Automated blood monocyte count as percentage of total leukocytes 12.1 4.4 - 11.3 12/09/2018 [facility] Automated blood eosinophil count as percentage of total leukocytes 2.4 0.0 - 6.0 12/09/2018 [facility] Automated blood basophil count as percentage of total leukocytes 0.5 0.0 - 1.0 12/09/2018 [facility] IM GRANULOCYTES % 0.4 0.0 - 1.0 12/09/2018 [facility] Automated blood neutrophil count 4.1 2.1 - 6.9 12/09/2018 [facility] Blood lymphocytes count (number/volume) 2.3 1.0 - 3.2 12/09/2018 [facility] Blood monocytes automated count (number/volume) 0.9 0.2 - 0.8 12/09/2018 [facility] Automated blood eosinophil count 0.2 0.0 - 0.4 12/09/2018 [facility] Automated blood basophil count (count/volume) 0.0 0.0 - 0.1 12/09/2018 [facility] Absolute Immature Granulocyte (auto 0.03 0 - 0.1 12/09/2018 [facility] Serum or plasma sodium measurement (moles/volume) 130 136 - 145 12/09/2018 [facility] Serum or plasma potassium measurement (moles/volume) 3.8 3.5 - 5.1 12/09/2018 [facility] Serum or plasma chloride measurement (moles/volume) 101 98 - 107 12/09/2018 [facility] Serum or plasma carbon dioxide, total measurement (moles/volume) 25 22 - 29 12/09/2018 [facility] Serum or plasma anion gap 7.8 8 - 16 12/09/2018 [facility] Serum or plasma urea nitrogen measurement (mass/volume) 13 7 - 26 12/09/2018 [facility] Serum or plasma creatinine measurement (mass/volume) 0.71 0.72 - 1.25 12/09/2018 [facility] Serum or plasma urea nitrogen/creatinine mass ratio 18 6 - 25 12/09/2018 [facility] Estimated glomerular filtration rate (GFR) determination > 60 60 12/09/2018 [facility] Glucose measurement 104 74 - 118 12/09/2018 [facility] Serum or plasma calcium measurement (mass/volume) 8.5 8.4 - 10.2 12/09/2018 [facility] Ammonia Ser-nc 108 31 - 123 12/09/2018 [facility] Serum or plasma trough vancomycin level at trough (mass/volume) 4.4 5.0 - 10.0 12/07/2018 [facility] Prothrombin time (PT) in platelet poor plasma by coagulation assay 21.2 11.9 - 14.5 12/06/2018 [facility] INR in Platelet poor plasma by Coagulation assay 1.76 12/06/2018 [facility] Serum or plasma total bilirubin measurement (mass/volume) 4.7 0.2 - 1.2 12/06/2018 [facility] Aspartate Amino Transf (AST/SGOT) 50 5 - 34 12/06/2018 [facility] Serum or plasma alanine aminotransferase measurement (enzymatic activity/volume) 33 0 - 55 12/06/2018 [facility] Serum or plasma protein measurement (mass/volume) 7.7 6.5 - 8.1 12/06/2018 [facility] Serum or plasma albumin measurement (mass/volume) 2.5 3.5 - 5.0 12/06/2018 [facility] Plasma globulin measurement (mass/volume) 5.2 2.3 - 3.5 12/06/2018 [facility] Serum or plasma albumin/globulin mass ratio 0.5 0.8 - 2.0 12/06/2018 [facility] Serum or plasma alkaline phosphatase measurement (enzymatic activity/volume) 79 40 - 150 12/06/2018 [facility] Bacteria identification in wound by culture Organism: STREPTOCOCCUS VIRIDANS 12/05/2018 [facility] Erythrocyte sedimentation rate by Westergren method 92 0 - 13 12/04/2018 [facility] Serum or plasma C reactive protein measurement (mass/volume) 15.3 0.0 - 4.9 12/04/2018 [facility] Blood culture Growth detected. Culture workup ordered. 12/04/2018 [facility] Bacterial blood culture Organism: STREPTOCOCCUS ANGINOSUS 12/04/2018 [facility] Urine color determination YELLOW YELLOW 12/03/2018 [facility] Urine clarity SL CLOUDY CLEAR 12/03/2018 [facility] Specific gravity of Urine by Test strip 1.010 1.010 - 1.025 12/03/2018 [facility] Urine pH measurement by automated test strip 7 5 - 7 12/03/2018 [facility] Urine leukocyte esterase detection by dipstick NEGATIVE NEGATIVE 12/03/2018 [facility] Urine nitrite detection NEGATIVE NEGATIVE 12/03/2018 [facility] Urine protein measurement by test strip (mass/volume) NEGATIVE NEGATIVE 12/03/2018 [facility] Urine glucose detection NEGATIVE NEGATIVE 12/03/2018 [facility] Urine ketones detection by automated test strip NEGATIVE NEGATIVE 12/03/2018 [facility] Urine urobilinogen measurement by test strip (mass/volume) 4 0.2 - 1 12/03/2018 [facility] Urine total bilirubin measurement (mass/volume) NEGATIVE NEGATIVE 12/03/2018 [facility] Urine erythrocytes detection TRACE NEGATIVE 12/03/2018 [facility] Automated urine sediment leukocyte count by microscopy (number/high power field) NONE 0 - 5 12/03/2018 [facility] Erythrocytes detection in urine sediment by light microscopy 6-10 0 - 5 12/03/2018 [facility] Bacteria detection in urine sediment by light microscopy FEW NONE 12/03/2018 [facility] Epithelial cells detection in urine sediment by light microscopy NONE NONE 12/03/2018 [facility] Differential Total Cells Counted 100 11/07/2018 [facility] Manual blood neutrophils/100 leukocytes 58 40 - 74 11/07/2018 [facility] Manual blood band neutrophils form/100 leukocytes 6 11/07/2018 [facility] Manual blood lymphocytes/100 leukocytes 18 19 - 48 11/07/2018 [facility] Manual blood monocytes/100 leukocytes 13 3.4 - 9.0 11/07/2018 [facility] Automated erythrocyte mean corpuscular hemoglobin (mass per erythrocyte) 29.3 28 - 32 11/07/2018 [facility] Manual basophil percentage 1 0 - 1.5 11/07/2018 [facility] Manual blood metamyelocytes/100 leukocytes 2 0 - 0 11/07/2018 [facility] Manual blood myelocytes/100 leukocytes 2 0 - 0 11/07/2018 [facility] Automated blood segmented neutrophil count as percentage of total leukocytes 62.3 38.7 - 80.0 11/07/2018 [facility] Blood platelets count by estimate (number/volume) SLIGHTLY DECREASED 11/07/2018 [facility] Platelet morphology FEW GIANT 11/07/2018 [facility] Blood hypochromia detection by light microscopy MODERATE 11/07/2018 [facility] Blood anisocytosis detection by light microscopy SLIGHT 11/07/2018 [facility] IM GRANULOCYTES % 3.9 0.0 - 1.0 11/07/2018 [facility] RBC morphology NORMAL 11/07/2018 [facility] Blood lymphocytes count (number/volume) 1.5 1.0 - 3.2 11/07/2018 [facility] Blood monocytes automated count (number/volume) 1.2 0.2 - 0.8 11/07/2018 [facility] Automated blood eosinophil count 0.1 0.0 - 0.4 11/07/2018 [facility] Automated blood basophil count (count/volume) 0.1 0.0 - 0.1 11/07/2018 [facility] Absolute Immature Granulocyte (auto 0.33 0 - 0.1 11/07/2018 [facility] Serum or plasma sodium measurement (moles/volume) 129 136 - 145 11/07/2018 [facility] Serum or plasma potassium measurement (moles/volume) 3.4 3.5 - 5.1 11/07/2018 [facility] Serum or plasma chloride measurement (moles/volume) 96 98 - 107 11/07/2018 [facility] Serum or plasma carbon dioxide, total measurement (moles/volume) 28 22 - 29 11/07/2018 [facility] Serum or plasma anion gap 8.4 8 - 16 11/07/2018 [facility] Serum or plasma urea nitrogen measurement (mass/volume) 9 7 - 26 11/07/2018 [facility] Serum or plasma creatinine measurement (mass/volume) 0.71 0.72 - 1.25 11/07/2018 [facility] Serum or plasma urea nitrogen/creatinine mass ratio 13 6 - 25 11/07/2018 [facility] Estimated glomerular filtration rate (GFR) determination > 60 60 11/07/2018 [facility] Glucose measurement 106 74 - 118 11/07/2018 [facility] Serum or plasma calcium measurement (mass/volume) 7.7 8.4 - 10.2 11/07/2018 [facility] Differential Total Cells Counted 100 11/06/2018 [facility] Manual blood neutrophils/100 leukocytes 61 40 - 74 11/06/2018 [facility] Manual blood lymphocytes/100 leukocytes 22 19 - 48 11/06/2018 [facility] Manual blood monocytes/100 leukocytes 6 3.4 - 9.0 11/06/2018 [facility] Manual blood eosinophil count as percentage of total leukocytes 3 0 - 7 11/06/2018 [facility] Manual blood metamyelocytes/100 leukocytes 1 0 - 0 11/06/2018 [facility] Blood lymphocytes variant count (number/volume) 7 11/06/2018 [facility] Blood platelets count by estimate (number/volume) SLIGHTLY DECREASED 11/06/2018 [facility] Platelet morphology NORMAL 11/06/2018 [facility] Blood hypochromia detection by light microscopy SLIGHT 11/06/2018 [facility] Blood anisocytosis detection by light microscopy SLIGHT 11/06/2018 [facility] RBC morphology ABNORMAL 11/06/2018 [facility] Serum or plasma total bilirubin measurement (mass/volume) 8.6 0.2 - 1.2 11/06/2018 [facility] Aspartate Amino Transf (AST/SGOT) 49 5 - 34 11/06/2018 [facility] Serum or plasma alanine aminotransferase measurement (enzymatic activity/volume) 20 0 - 55 11/06/2018 [facility] Serum or plasma protein measurement (mass/volume) 7.7 6.5 - 8.1 11/06/2018 [facility] Serum or plasma albumin measurement (mass/volume) 2.2 3.5 - 5.0 11/06/2018 [facility] Plasma globulin measurement (mass/volume) 5.5 2.3 - 3.5 11/06/2018 [facility] Serum or plasma albumin/globulin mass ratio 0.4 0.8 - 2.0 11/06/2018 [facility] Serum or plasma alkaline phosphatase measurement (enzymatic activity/volume) 72 40 - 150 11/06/2018 [facility] Manual blood eosinophil count as percentage of total leukocytes 3 0 - 7 11/06/2018 [facility] Blood lymphocytes variant count (number/volume) 7 11/06/2018 [facility] Blood target cells detection by light microscopy FEW 11/05/2018 [facility] Prothrombin time (PT) in platelet poor plasma by coagulation assay 22.2 11.9 - 14.5 11/05/2018 [facility] INR in Platelet poor plasma by Coagulation assay 1.87 11/05/2018 [facility] Ammonia Ser-mCnc 101 31 - 123 11/05/2018 [facility] Serum or plasma creatine kinase measurement (enzymatic activity/volume) 82 30 - 200 11/05/2018 [facility] Serum or plasma creatine kinase MB measurement (mass/volume) 1.10 0 - 5.0 11/05/2018 [facility] Troponin I measurement by highly sensitive enzyme immunoassay 0.056 0 - 0.300 11/05/2018 [facility] Blood target cells detection by light microscopy FEW 11/05/2018 [facility] Serum or plasma creatine kinase measurement (enzymatic activity/volume) 82 30 - 200 11/05/2018 [facility] Serum or plasma creatine kinase MB measurement (mass/volume) 1.10 0 - 5.0 11/05/2018 [facility] Troponin I measurement by highly sensitive enzyme immunoassay 0.056 0 - 0.300 11/05/2018 [facility] Activated partial thromboplastin time (aPTT) in platelet poor plasma bycoagulation assay 46.2 23.8 - 35.5 11/04/2018 [facility] Activated partial thromboplastin time (aPTT) in platelet poor plasma bycoagulation assay 46.2 23.8 - 35.5 11/04/2018 [facility] Urine color determination ANAT YELLOW 11/04/2018 [facility] Urine clarity HAZY CLEAR 11/04/2018 [facility] Specific gravity of Urine by Test strip 1.015 1.010 - 1.025 11/04/2018 [facility] Urine pH measurement by automated test strip 6 5 - 7 11/04/2018 [facility] Urine leukocyte esterase detection by dipstick 1+ NEGATIVE 11/04/2018 [facility] Urine nitrite detection POSITIVE NEGATIVE 11/04/2018 [facility] Urine protein measurement by test strip (mass/volume) NEGATIVE NEGATIVE 11/04/2018 [facility] Urine glucose detection NEGATIVE NEGATIVE 11/04/2018 [facility] Urine ketones detection by automated test strip NEGATIVE NEGATIVE 11/04/2018 [facility] Urine urobilinogen measurement by test strip (mass/volume) 8 0.2 - 1 11/04/2018 [facility] Urine total bilirubin measurement (mass/volume) 3+ NEGATIVE 11/04/2018 [facility] Urine erythrocytes detection 3+ NEGATIVE 11/04/2018 [facility] Automated urine sediment leukocyte count by microscopy (number/high power field) 6-10 0 - 5 11/04/2018 [facility] Erythrocytes detection in urine sediment by light microscopy 11-20 0 - 5 11/04/2018 [facility] Bacteria detection in urine sediment by light microscopy MANY NONE 11/04/2018 [facility] Epithelial cells detection in urine sediment by light microscopy MODERATE NONE 11/04/2018 [facility] Manual blood band neutrophils form/100 leukocytes 14 11/04/2018 [facility] Influenza virus A and B antigen identification by immunofluorescence NEGATIVE NEGATIVE 11/04/2018 [facility] Blood culture Growth detected. Culture workup ordered. 11/04/2018 [facility] Influenza virus A and B antigen identification by immunofluorescence NEGATIVE NEGATIVE 11/04/2018 [facility] Bacterial urine culture Urine Culture [facility] Pathology Reports No Data Provided for This [...] Date DC Date Status Source Discharged Inpatient [id number] REBECCA GRAF MD 11/04/2018 11/07/2018 [facility] Discharged Inpatient [id number] REBECCA GRAF MD 12/03/2018 12/10/2018 [facility] Procedures Procedure Code Date Perfomer Comments Source Magnetic resonance imaging of lumbar spine without contrast [id number] 12/09/2018 [facility] Lumbar laminectomy [id number] 12/05/2018 PAKZABAN [facility] Computed tomography of lumbar spine without contrast [id number] 12/03/2018 [facility] EGD with biopsy [id number] 11/05/2018 OESTHER [facility] TRANSFUSE NONAUT RED BLOOD CELLS IN PERIPH VEIN, PERC [id number] 11/05/2018 [facility] OCCLUSION OF ESOPHAGEAL VEIN WITH EXTRALUMINAL DEVICE, ENDO [id number] 11/05/2018 JERMAINE [facility] X-ray of chest, two views [id number] 11/04/2018 [facility] Computed tomography of abdomen and pelvis with contrast [id number] 11/04/2018 [facility] TRANSFUSE NONAUT FRESH PLASMA IN PERIPH VEIN, PERC [id number] 11/04/2018 [facility] Assessment and Plan No Data Provided for This Section Plan of Care Plan of Care Date Source Discharge Date 12/10/18 5:08pm Disposition TRANSFER LONG TERM Prescriptions See Medication Section 12/10/2018 [facility] Discharge Date 11/07/18 10:17am Disposition HOME, SELF-CARE Instructions/Education Provided Back Pain Prescriptions See Medication Section Additional Instructions/Education activity as tolerated follow up with your primary doctor in 1-2 weeks call for an appointment. 11/07/2018 [facility] Social History Social History Date Source Smoking Status Start Date Stop Date Never Smoker 12/10/2018 [facility] Family History No Data Provided for This Section Advance Directives Order Name Results Value Date Source Advance Directives Advance Directives Directive Response Recorded Date/Time Does the patient have an advance directive? No 12/03/18 9:51pm If yes, is advance directive on file with [facility]? No 12/03/18 9:51pm If not on file with [facility] will patient provide a copy? No 12/03/18 9:51pm Do you have a Directive to Physician? No 12/03/18 5:06pm Do you have a Medical Power of Park Attendant? No 12/03/18 5:06pm Do you have an [...] rights and responsibilities? Yes 12/03/18 5:06pm 12/10/2018 [facility] Advance Directives Advance Directives Directive Response Recorded Date/Time Does the patient have an advance directive? No 11/05/18 8:02am Do you have a Directive to Physician? No 11/04/18 12:23pm Do you have a Medical Power of Park Attendant? No 11/04/18 12:23pm Do you have an [...] rights and responsibilities? Yes 11/04/18 12:23pm 11/07/2018 [facility] Functional Status No Data Provided for This Section
[2019-04-01 09:51] LABS: ACETAMINOPHEN < 3 ug/mL (10-30); ALANINE AMINOTRANSFERASE 21 IU/L (0-55); ALBUMIN 2.3 g/dL (3.5-5.0); ALBUMIN/GLOBULIN RATIO 0.6 (0.8-2.0); ALKALINE PHOSPHATASE 130 IU/L (40-150); ANION GAP 7.6 mmol/L (8-16); BLOOD UREA NITROGEN 12 mg/dL (7-26); BUN/CREATININE RATIO 18 (6-25); CALCIUM 8.2 mg/dL (8.4-10.2); CARBON DIOXIDE 23 mmol/L (22-29); CHLORIDE 107 mmol/L (98-107); CREATINE KINASE 67 IU/L (30-200); CREATININE, SERUM 0.68 mg/dL (0.72-1.25); EST GLOMERULAR FILTRATION RATE > 60 ML/MIN (60-); GLUCOSE 86 mg/dL (74-118); LIPASE 21 U/L (8-78); MAGNESIUM 1.8 MG/DL (1.3-2.1); POTASSIUM 3.6 mmol/L (3.5-5.1); SODIUM 134 mmol/L (136-145)
[2019-04-01 10:05] LABS: BILIRUBIN,URINE MODERATE (NEGATIVE); CLARITY,URINE CLOUDY (CLEAR); COLOR,URINE YELLOW (YELLOW); KETONES,URINE TRACE (NEGATIVE); LEUKOCYTE ESTERASE ,URINE NEGATIVE (NEGATIVE); NITRITE,URINE NEGATIVE (NEGATIVE); PROTEIN,URINE DIPSTICK TRACE (NEGATIVE); URINE UROBILINOGEN 4 mg/dL (0.2 - 1)
[2019-04-01 10:06] LABS: AMPHETAMINES SCREEN,URINE NEGATIVE (NEGATIVE); BENZODIAZEPINES SCREEN,URINE NEGATIVE (NEGATIVE); PHENCYCLIDINE SCREEN,URINE NEGATIVE (NEGATIVE)
[2019-04-01] MEDS: PANTOPRAZOL 40MG/SOD CHL 0.9% 50 ML IV SCH ×4 (10:06→22:45)
[2019-04-01] MEDS ORDERED: ACETAMINOPHEN 325 MG TAB PO STA (10:12)
[2019-04-01] MEDS ORDERED: FUROSEMIDE INJ 10 MG/ML 2 ML VIAL IV PRN (10:15)
[2019-04-01] MEDS ORDERED: PHYTONADIONE 10 MG/ML AMP SQ ONE (10:15)
[2019-04-01] MEDS ORDERED: SODIUM CHLORIDE 0.9% 250ML 250 ML IV ONE (10:15)
[2019-04-01 10:27] LABS: BACTERIA,URINE MANY /HPF; EPITHELIAL CELLS,URINE MODERATE /LPF; RBC,URINE 0-5 /HPF (0-5); WBC,URINE (MAN) 0-5 /HPF (0-5)
[2019-04-01 10:28] LABS: MUCUS,URINE MODERATE (RARE)
[2019-04-01] MEDS ORDERED: DIPHENHYDRAMINE HCL INJ 50 MG/ML VIAL IV ONE (10:30)
[2019-04-01 11:12] LABS: THYROID STIMULATING HORMONE 2.099 uIU/mL (0.350-4.940)
[2019-04-01] MEDS ORDERED: CEPHALEXIN500 MG PO (11:48)
--- NOTE | 2019-04-01 12:43 | Diagnostic Imaging Report ---
CT of the abdomen and pelvis, with contrast. History: Abdominal pain. Comparison: CT abdomen/pelvis with contrast from 11/04/2018, MRI lumbar spine from 12/09/2018 Technique: Multidetector CT scanning of the abdomen and pelvis was performed from the level of the lung bases to the inferior pubic rami after the administration of intravenous contrast material only. Coronal and sagittal multiplanar reformations were obtained. RADIATION DOSE: Total DLP: 788.90 mGy*cm Dose modulation, iterative reconstruction, and/or weight based adjustment of the mA/kV was utilized to reduce the radiation dose to as low as reasonably achievable. FINDINGS: The visualized lungs are unremarkable for bibasilar atelectasis/scarring. The imaged portion of the heart demonstrates no significant abnormalities. There is a moderate volume of abdominopelvic ascites present. The liver appears decreased in size with a nodular contour compatible with cirrhosis. A subcentimeter hypodensity is identified within the inferior right hepatic lobe which is too small to definitively characterize but appears stable from the prior examination from 11/04/2018. No other focal hepatic abnormalities are identified. The portal venous system, SMV, and splenic vein appear patent. The gallbladder is distended and contains small radiopaque stones. The presence of ascites limits evaluation for pericholecystic fluid. There is no obvious gallbladder wall thickening or biliary ductal dilatation. The stomach, pancreas, and bilateral adrenal glands are unremarkable. The spleen is mildly enlarged. The kidneys are normal in size and location and concentrate contrast material properly. There is a stable cyst identified within the superior pole the left kidney. There is no evidence for hydronephrosis. The ureters are normal caliber. The partially distended urinary bladder and prostate appear grossly unremarkable. The abdominal aorta is normal course and caliber with mild atherosclerotic calcifications. The IVC appears unremarkable. Please note evaluation of the bowel is limited without the use of enteric contrast material. The visualized loops of small and large bowel demonstrate no evidence of obstruction or inflammation. The appendix is visualized and appears unremarkable. Diverticula are noted within the colon without evidence for acute diverticulitis. There is no intraperitoneal free air. No abnormally enlarged lymph nodes are identified within the abdomen or pelvis. There is a prominent fat-containing ventral abdominal hernia, unchanged from the prior examination. There is a fat and fluid containing inguinal hernia, also unchanged. Again identified are chronic/remote right pelvic fractures with stable appearing right pelvic fixation hardware. There are endplate changes at L5-S1 better evaluated on prior MRI examinations which have documented discitis osteomyelitis. No fluid identified to suggest abscess formation. There has been interval increase in endplate changes at L5-S1 without significant surrounding inflammatory change. The remaining osseous structures demonstrate no evidence for acute fracture or destructive process. IMPRESSION: 1. CT findings suggestive of cirrhosis and sequela of portal hypertension including mild splenomegaly and moderate volume of abdominopelvic ascites, increased from the prior examination. 2. Cholelithiasis and distended gallbladder. Presence of ascites limits evaluation for pericholecystic fluid. There is no evidence of wall thickening or biliary ductal dilatation. 3. Stable appearing fat-containing ventral abdominal wall hernia and left fat and fluid containing inguinal hernia. 4. Endplate changes noted at L5-S1 which likely reflect sequela of discitis/osteomyelitis as noted on and better evaluated on prior MRI examinations. No CT evidence for abscess formation. 5. Additional stable findings as above. Signed by: Dr. Ishaan Cochran MD on 04/01/2019 12:39 PM
[2019-04-01 13:42] VITALS: BP 137/82
[2019-04-01] MEDS ORDERED: IOPAMIDOL 370 MG/ML 200 ML INFUS..BTL INJ ONE (14:23)
[2019-04-01] MEDS ORDERED: SODIUM CHLORIDE 0.9% 50ML 50 ML ONE (14:23)
[2019-04-01] MEDS ORDERED: TRAMADOL HCL 50 MG TAB PO PRN (15:30)
[2019-04-01 15:41] VITALS: BP 137/82
[2019-04-01 16:00] VITALS: BP 134/80
[2019-04-01] MEDS: LACTULOSE SYRUP 20 GM/30 ML UDC PO SCH (18:16)
[2019-04-01] MEDS: PROPRANOLOL HCL 10 MG TAB PO SCH (18:16)
[2019-04-01 21:00] VITALS: BP 134/80
[2019-04-01 21:11] VITALS: BP 108/65
[2019-04-02 00:44] VITALS: BP 120/63
--- NOTE | 2019-04-02 00:58 | Consultation ---
DATE OF CONSULTATION: 04/01/2019 HISTORY OF PRESENT ILLNESS: This is a 53 years old, who is very well known to me who has a history of cirrhosis and ascites, as well as portal hypertension, presented to the hospital apparently because of problems with ascites. He underwent paracentesis already today and also was found to have anemia with hemoglobin 7.8. He is not bleeding. He did have an upper endoscopy recently, which shows a grade 1 esophageal varices, hiatal hernia, as well as gastritis. His workup so far revealed that his bilirubin was 7.9 and AST of , and then a hemoglobin of 7.8 with a hematocrit of 22.4. He has a PT of 24.8. He did have a CAT scan of abdomen and pelvis, which shows cirrhosis with portal hypertension along with ascites and splenomegaly. Also have evidence of gallstones with some distended gallbladder. PAST MEDICAL PROBLEMS: Significant for history of cirrhosis as mentioned before, and with portal hypertension. History of anemia. ALLERGIES: NONE. CURRENT MEDICATIONS: Include; pantoprazole, propranolol, lactulose, tramadol, Aldactone, Lasix, and folic acid. SOCIAL HISTORY: Denies any alcohol use. FAMILY HISTORY: Noncontributory. REVIEW OF SYSTEMS: Denies any chest pain or shortness of breath. Denies any dysphagia or odynophagia. Denies any dysuria, hematuria, or any kind of syncopal episode. PHYSICAL EXAMINATION: GENERAL: The patient is awake and alert, appears to be stable, not in acute distress at this point. VITAL SIGNS: Afebrile, currently with stable vital signs. HEAD, EYES, EARS, NOSE, AND THROAT: Normocephalic and atraumatic. Sclerae are anicteric. NECK: Supple. HEART: Regular. LUNGS: Clear. ABDOMEN: Soft. Nontender at this point. There is ascites. EXTREMITIES: No cyanosis. No clubbing. LABORATORY DATA: Significant for PT of 24.8, INR of 2.16, and PTT 51.7. WBC of 5.49, hemoglobin 7.8, hematocrit 22.4, MCV of 99.1. CAT scan . IMPRESSION: 1. Cirrhosis with portal hypertension and ascites, status post paracentesis. 2. Gallstones. 3. Anemia at this point. RECOMMENDATION: Agree with diuretics at this point, follow labs, transfer as stated. MD RUBY Lagunas/MODL /[id number] cc: MD Pinky Werner MD
[2019-04-02] MEDS ORDERED: SODIUM CHLORIDE 0.9% 250ML 250 ML ONE (01:21)
[2019-04-02 05:35] VITALS: BP 116/66
[2019-04-02] MEDS: PANTOPRAZOL 40MG/SOD CHL 0.9% 50 ML IV SCH ×2 (06:00→08:36)
[2019-04-02 08:18] VITALS: BP 129/73
[2019-04-02 08:57] VITALS: BP 129/73
[2019-04-02] MEDS ORDERED: SPIRONOLACTONE 25 MG TAB PO SCH (09:00)
[2019-04-02] MEDS: LACTULOSE SYRUP 20 GM/30 ML UDC PO SCH (09:00)
[2019-04-02] MEDS ORDERED: FUROSEMIDE 40 MG TAB PO SCH (09:00)
[2019-04-02] MEDS ORDERED: FOLIC ACID 1 MG TAB PO SCH (09:00)
--- NOTE | 2019-04-02 09:06 | Diagnostic Imaging Report ---
PROCEDURE: Ultrasound-guided diagnostic and therapeutic paracentesis Procedural Personnel Attending physician(s): Ishaan Cochran MD Pre-procedure diagnosis: Ascites Post-procedure diagnosis: Same Indication: Ascites with pain or pressure symptoms Additional clinical history: None Complications: No immediate complications. IMPRESSION: Ultrasound-guided paracentesis with drainage of 3150 mL of serous fluid. Plan: Resume care by clinical team. PROCEDURE SUMMARY: - Limited abdominal ultrasound - Ultrasound-guided paracentesis - Additional procedure(s): None PROCEDURE DETAILS: Pre-procedure Consent: Informed consent for the procedure including risks, benefits and alternatives was obtained and time-out was performed prior to the procedure. Preparation: The site was prepared and draped using maximal sterile barrier technique including cutaneous antisepsis. Anesthesia/sedation Level of anesthesia/sedation: No sedation Anesthesia/sedation administered by: Not applicable Initial abdominal ultrasound Initial abdominal ultrasound was performed. Findings: Moderate ascites. A safe window for paracentesis was identified. Paracentesis Local anesthesia was administered. The peritoneal cavity was accessed and fluid return confirmed position. Ascites was drained. The catheter was then removed, and a sterile bandage was applied. Paracentesis access technique: Real-time ultrasound guidance Catheter placed: 5F Yueh Post-drainage ultrasound: Not performed Additional Details Additional description of procedure: None Equipment details: None Specimens removed: Abdominal fluid Estimated blood loss (mL): Less than 10 Standardized report: [email or web address] Attestation Signer name: Antwon Sofia MD I attest that I was present for the entire procedure. I reviewed the stored images and agree with the report as written. Signed by: Antwon Sofia MD on 04/02/2019 9:03 AM
[2019-04-02 09:08] LABS: BASOPHILS # (AUTO) 0.1 (0.0-0.1); BASOPHILS % 1.1 % (0.0-1.0); EOSINOPHILS # (AUTO) 0.2 (0.0-0.4); HEMATOCRIT 29.7 % (38.2-49.6); LYMPHOCYTES # (AUTO) 1.7 (1.0-3.2); LYMPHOCYTES % 37.6 % (18.0-39.1); MEAN CORPUSCULAR HGB CONC 33.7 g/dL (31-35); MONOCYTES # (AUTO) 0.4 (0.2-0.8); MONOCYTES % 8.5 % (4.4-11.3); NEUTROPHILS # (AUTO) 2.2 (2.1-6.9); NEUTROPHILS % 48.1 % (38.7-80.0); PLATELET COUNT 89 x10e3/uL (140-360); RED BLOOD COUNT 3.03 x10e6/uL (4.3-5.7); RED CELL DISTRIBUTION WIDTH 17.7 % (11.7-14.4)
[2019-04-02 09:28] LABS: ALANINE AMINOTRANSFERASE 25 IU/L (0-55); ALBUMIN 2.4 g/dL (3.5-5.0); ALBUMIN/GLOBULIN RATIO 0.5 (0.8-2.0); ALKALINE PHOSPHATASE 121 IU/L (40-150); ANION GAP 10.8 mmol/L (8-16); BLOOD UREA NITROGEN 11 mg/dL (7-26); BUN/CREATININE RATIO 15 (6-25); CALCIUM 8.5 mg/dL (8.4-10.2); CARBON DIOXIDE 24 mmol/L (22-29); CHLORIDE 108 mmol/L (98-107); CREATININE, SERUM 0.75 mg/dL (0.72-1.25); EST GLOMERULAR FILTRATION RATE > 60 ML/MIN (60-); GLUCOSE 109 mg/dL (74-118); POTASSIUM 3.8 mmol/L (3.5-5.1); SODIUM 139 mmol/L (136-145)
[2019-04-02] MEDS ORDERED: CEFTRIAXONE SOD 1 GM/NS 50 ML 50 ML IV SCH (09:30)
[2019-04-02] MEDS: PROPRANOLOL HCL 10 MG TAB PO SCH (09:47)
[2019-04-02] MEDS ORDERED: ONDANSETRON HCL 4 MG ORAL DISINTEGRATING TAB PO PRN (10:15)
[2019-04-02 10:25] LABS: PLATELET ESTIMATE MODERATELY DECREASED; PLATELET MORPHOLOGY COMMENT NORMAL
[2019-04-02 10:52] LABS: LIPASE 35 U/L (8-78)
--- NOTE | 2019-04-03 05:10 | Discharge Summary ---
PRIMARY CARE PHYSICIAN: Dr. Pinky Emmanuel. SOFTWARE RECRUITER: Dr. Sushil Garcia. The patient is on observation. FINAL DIAGNOSES: 1. Increased abdominal ascites secondary to chronic liver cirrhosis associated with portal hypertension. 2. Urinary retention secondary to increasing abdominal pressure and ascites. 3. Chronic anemia, status post blood transfusion. HISTORY OF PRESENT ILLNESS: The patient is a 53-year-old male, on multiple medication, has liver cirrhosis, has increase in abdominal ascites. The patient is status post paracentesis. He is doing well, stable. The patient has no sign of bleed. His renal function is stable. He is on Aldactone and Lasix. He did receive 2 units of blood transfusion. The patient is stable at this time. His INR is 2.16 secondary to liver cirrhosis. The patient was started on rifaximin 550 mg twice a day and for his urinary tract infection due to retention, Levaquin 250 mg daily for 7 days. Of note, the patient is completely able to urinate now. He will start on Flomax 0.4 mg q.p.m. The patient is otherwise stable. I advised the patient to follow up closely with his family physician Dr. Pinky Emmanuel and his healthcare sales representative, Dr. Sushil Garcia. The patient is otherwise stable, discharged home today. Follow up as instructed. MD LINCOLN Werner/MODL /[id number]
== END 2019-04-02 10:42 | disposition home or self-care (01) ==
LOC: ER 08:28 → ERHOLD 08:59 → INTOOBSV 08:59 → MED/SURG2 13:37
PROVIDERS: ADMIT Internal Medicine; ATTEND Internal Medicine
DX: K74.60 Unspecified cirrhosis of liver (principal); R18.8 Other ascites; N39.0 Urinary tract infection, site not specified; N40.0 Benign prostatic hyperplasia without lower urinary tract symptoms; K76.6 Portal hypertension; K80.80 Other cholelithiasis without obstruction; D64.9 Anemia, unspecified
CPT/HCPCS: 36415 ×2; 49083 ×2; 71045; 74177; 74470; 80053 ×2; 80307; 80329; 81001; 82140; 82550; 82553; 83690 ×2; 83735; 83880; 84443; 84484; 85025 ×2; 85610; 85730; 86850; 86870; 86880; 86900; 86905; 86920; 86922; 87086; 93005; 99001; 99284; C9113; G0378 ×2; J0696 ×2; J1200; J2405; J3430; J7030; J7050 ×2; P9016; P9017; Q9967; C1729